=== PATIENT | female | born 1995 | race Caucasian/White ===

== ENCOUNTER 2018-09-04 15:00 | Emergency (ER) | payer MEDICAID, SELFPAY ==
[2018-09-04 15:01] VITALS: BP 154/92; PULSE 110; RESP 16; TEMP 36.8; O2SAT 98; BMI 44.6
--- NOTE | 2018-09-04 15:12 | US_ITS ---
STUDY: ABDOMINAL ULTRASOUND - RIGHT UPPER QUADRANT REASON FOR VISIT: Female, 23 years old. Right upper quadrant pain TECHNIQUE: Ultrasound evaluation of the right upper quadrant was performed with real-time and static joshua-scale imaging. TECHNICAL QUALITY: Adequate. COMPARISON: None. FINDINGS: Liver: The liver measures 19.3 cm. There is increased echogenicity consistent with fatty infiltration. The bile ducts are within normal limits. There is hepatic color flow. The direction of portal flow is hepatopetal. There is no demonstrated mass lesion. Gallbladder: There is a contracted gallbladder. The gallbladder wall measures 4 mm. There is a negative sonographic Phillips's sign. There is no pericholecystic fluid. There are no gallstones. Common Bile Duct (C.B.D.): The common bile duct measures 4 mm. Pancreas: The pancreas is obscured by bowel gas. Right Kidney: Normal size of the right kidney. The right kidney measures 10.9 cm. Normal renal cortex. The right cortex measures 1.2 cm. There is no demonstrated renal mass or cyst. There is no right hydronephrosis. US/Gallbladder IMPRESSION: Hepatomegaly and fibrofatty infiltration of the liver. The patient has eaten. Gallbladder is contracted and there may be artifactually thickened gallbladder wall. Electronically Signed: Avinash Prince, at 16:26 EDT Tel , Service support ,
--- NOTE | 2018-09-04 15:28 | ED.DCSUM_ITS ---
History of Present Illness Chief Complaint: Abd Pain Narrative: Patient presenting for evaluation secondary to abdominal pain. Patient reports that she has had waxing and waning right upper quadrant abdominal pain that radiates somewhat to her epigastrium. This been going on over the course of the last 24 hours and has been associated with some nausea. She denies any vomiting or diarrhea. She denies any urinary signs or symptoms vaginal discharge or bleeding. She is never had any prior similar episodes in the past. Pain is worse with palpation, movement, and eating. Only abdominal surgery history is that of a section. Review of systems otherwise negative. Past Medical History - Allergies and Home Meds Allergies/Adverse Reactions: Allergies erythromycin base [Erythromycin Base] Allergy (Mild, Verified 09/04/18 15:02) Hives Sulfa (Sulfonamide Antibiotics) Allergy (Verified 09/04/18 15:02) Hives Primary Care Physician: Burt De León MD [Primary Care Provider] - Surgical History: - - Smoking Status: Current every day smoker - Family History Maternal Family History: Reports: No pertinent history Paternal Family History: Reports: No pertinent history Review of Systems All systems negative except as indicated General: Denies: Fever Gastrointestinal: Reports: Abdominal pain, Nausea. Denies: Vomiting, Diarrhea, Constipation Physical Exam Vital Signs/Narrative: Vital Signs Temp Pulse Resp BP Pulse Ox 09/04/18 15:01 98.2 F 110 H 16 154/92 H 98 Inital Vital Signs reviewed: Yes General: Well nourished, Well developed, No Acute Distress Head: Normocephalic, Atraumatic Eyes: Perrl, EOMI. Negative for: Pale conjunctiva, Scleral icterus ENT: Moist mucous membranes, No rhinorrhea Neck: Supple, Nontender Cardiovascular: Regular rate, Regular rhythm, No murmurs Respiratory: No distress, CTA bilaterally, Chest nontender Abdomen: Soft, Tender - RUQ, Phillips's sign Extremities: Nontender, No edema Skin: Normal color, No rash Neurological: Alert, Oriented x3, Cranial nerves II-XII grossly intact, Normal Strength, Normal Sensation Psychological: Normal affect, Normal Mood Diagnostic/Tx/Re-eval - Medical Decision Making Patient presenting secondary to right upper quadrant abdominal pain. There was some concern for the possibility of gallbladder disease IV was established work- up was obtained. CBC chemistry lipase and test were obtained which were all found to be unremarkable. Right upper quadrant ultrasound was also found to be unremarkable. Patient was given Toradol, repeat evaluation at 1645 showed the patient have significant improvement of her pain. Potentially at this point the patient is suffering from an episode of biliary colic. She does not have any evidence of inflammation or gallstones. I do not believe that she requires admission or further observation. Patient will be provided with a surgeon with which to follow-up should this become a recurrent issue. She understands signs and symptoms which to return and the patient was discharged. Disposition: Home ED Disposition - Plan for ED Patient: Disposition: Home or Assisted Living Diagnosis: Biliary colic Instructions: ED Abdominal Pain Unkn Cause Referrals: Isidoro Dupont MD [STAFF PHYSICIAN] - As Needed
[2018-09-04] MEDS: Ketorolac 30 MG/ML Syringe 15 MG IV (15:29)
[2018-09-04] MEDS: Ondansetron 4 MG/2 ML Vial IV (15:29)
[2018-09-04 15:34] VITALS: BP 106/79; PULSE 85; RESP 16; O2SAT 98
[2018-09-04 15:47] LABS: Absolute Lymphocyte Count 3.25 X10^3/ul (0.83-4.51); Absolute Neutrophil Count 7.6 X10^3/uL (2.0-7.7); Basophil# 0.01 X10^3/uL; Basophil% 0.1 % (0-1); Eosinophil# 0.36 X10^3/uL; Eosinophils% 3.1 % (0-5); Hematocrit 43.3 % (37-47); Hemoglobin 14.3 g/dl (12.0-15.0); Lymphocyte # 3.25 X10^3/ul (4.0); Lymphocyte % 27.9 % (19-41); Mean Corpuscular Volume 87.8 fL (81-99); Mean Platelet Vol. 8.8 fl (6.2-12.0); Monocyte# 0.43 X10^3/uL; Monocyte% 3.7 % (0-10); Neutrophil # 7.58 X10^3/uL (2.7-7.7); Platelet Count 288 K/mm3 (150-450); RBC Distribution Width CV 12.9 % (11.6-14.6); RBC Distribution Width SD 41.7 fl (35.1-43.9); Red Blood Count 4.93 M/mm3 (4.2-5.4); White Blood Count 11.7 K/mm3 (4.4-11.0)
[2018-09-04 15:48] LABS: POSITIVE COUNT NO; POSITIVE DIFFERENTIAL NO; POSITIVE MORPHOLOGY NO
[2018-09-04 16:06] LABS: ALB/GLOB Ratio 0.9 RATIO (0.9-2.4); AST(SGOT) 11 U/L (15-37); Alanine Aminotransfer ALT/SGPT 23 U/L (13-56); Albumin, Serum 3.4 g/dL (3.2-5.0); Alkaline Phosphatase 61 U/L (45-117); Anion Gap 6 (5-15); BUN 10 mg/dL (7-18); BUN/Creat Ratio 10.9 RATIO (10-20); Calcium,Total 8.8 mg/dL (8.5-10.1); Chloride 108 mmol/L (98-107); Creatinine, Serum 0.92 mg/dL (0.55-1.02); EST Glomerular Filtration Rate 79 mL/min (>60); Est Glom Filt Rate - Afr Amer 96 mL/min (>60); Estimated Creatinine Clearance 84.11 ml/min; Globulin 3.7 g/dL (2.2-4.2); Glucose 101 mg/dL (74-106); Lipase 88 U/L (73-393); Potassium 3.4 mmol/L (3.5-5.1); Protein, Total 7.1 g/dL (6.4-8.2); Sodium Level 141 mmol/L (136-145)
[2018-09-04 16:34] LABS: Internal QC Validated? YES +Cl - CLEAR BKGD; Pregnancy, Serum, hCG Quali. NEGATIVE Negative
[2018-09-04 17:03] VITALS: BP 110/71; PULSE 67; RESP 16; O2SAT 100
== END 2018-09-04 17:05 | disposition home or self-care (01) ==
PROVIDERS: Emergency Provider Emergency Medicine; Family Provider Family Medicine; PCP Family Medicine
DX: K80.50 Calculus of bile duct without cholangitis or cholecystitis without obstruction (principal); Z88.1 Allergy status to other antibiotic agents; Z88.2 Allergy status to sulfonamides; F17.200 Nicotine dependence, unspecified, uncomplicated
CPT/HCPCS: 76705; 80053; 83690; 84703; 85025; 96374; 96375; 99283; J7030; J2405

== ENCOUNTER 2019-09-20 09:52 | Outpatient (RCR) | payer MEDICAID, SELFPAY ==
--- NOTE | 2019-09-20 11:00 | HP.PTEVAL ---
Patient's Visit Information EMMA URIAS is a 24 year old F referred to Physical Therapy by Dr. Burt De León MD with a diagnosis of dizziness. Date of Evaluation: 09/20/19 Physical Therapist: KENDRA Pantoja - Visit Plan Frequency: 1-2x /Week Duration: 4-6 Weeks Plan: 1-2X/ week for 4-6 weeks for VOR X 1 exercises and progression, ambulation with head turns, MSQ activities (see objective) with HEP - Subjective She has been having vertigo spells and they are random... about 1-2X/ week. thinks that it is pretty sure it has to do with her inner ear and the crystals. Sometimes it will last all day. Sometimes it is when she gets out of bed. It feel that she is literally spinning. She reports no LOB. She can be sitting and she will get dizzy and it can last hours. She has not tried anything to stop it... waits it out. She has not hit her head recently. Sometimes she might feel weird driving. She gets really bad SCHROEDER and they last all day long.... IBprof helps a little bit but they are the worst she has had in her life. When she is in the spell screen time will bother her. - Objective -B Hallpike for dizziness/ nastagmus. -horizontal smooth pursuit X 60 seconds for dizziness/nystagmus. -vertical smooth pursuit X 60 seconds for dizziness/nystagmus. +VOR X 1 horizontal.... felt a little spinny after about 45 seconds... when she stopped. +VOR X1 vertical.... felt a little spinny after 60 seconds... when she stopped. VOR X2----Head is moving, eyes focused on moving object ( in opposite direction of the head).... horizontal X 20 seconds.... dizziness. FGA 22. MSQ: 23 (sitting to supine, supine to s/l L, supine to sit, Sitting head to L knee, vetical head pitches, turning 180 degrees to the L - Balance Scores Functional Gait Assessment Score: 22 % Disability: 26.6700 - Goals Goal 1:: I HEP Goal Time Frame: 4-6 Weeks Goal 2:: No dizziness with VOR X 1 horizontal and vertical in standing X 60 seconds Goal Time Frame: 4-6 Weeks Goal 3:: Decrease freq of dizziness to less than 1X each week Goal Time Frame: 4-6 Weeks Goal 4:: Increase MSQ to normal with all activities Goal Time Frame: 4-6 Weeks - Rehabilitation Potential Rehabilitation Potential: Good - Anticipated Interventions Patient/Client Instruction: Educate patient on: Condition, Plan of Care For the Purpose of:: To improve nutrient delivery to tissue, To improve muscle performance and motor function, To improve ability to perform ADL's, To increase tolerance to activity/condition/position, To improve balance Therapeutic Exercise to Include: Strength training, Endurance training, Balance training, Coordination, Gait and locomotor training For the Purpose of:: To improve muscle performance and motor function, To improve ability to perform ADL's, To increase tolerance to activity/condition/position Thank you for the opportunity to evaluate your patient. For Medicare and Medicare HMO plans, please review the plan of care and approve it. It will need to be FAXED BACK to us at [phone] for Medicare purposes. For Medicare only, by signing this I certify the plan of care. Please let me know if there are questions or concerns regarding this plan of care. Physician Signature: Date:
--- NOTE | 2019-12-19 11:36 | HP.PT.NRP ---
EMMA URIAS was seen in my office for initial evaluation on 09/20/19. The following Plan of Care was established for this patient: Initial Frequency: 1-2x /Week Initial Duration: 4-6 Weeks Patient/Client Instruction: Educate patient on: Condition, Plan of Care For the Purpose of:: To improve nutrient delivery to tissue, To improve muscle performance and motor function, To improve ability to perform ADL's, To increase tolerance to activity/condition/position, To improve balance Therapeutic Exercise to Include: Strength training, Endurance training, Balance training, Coordination, Gait and locomotor training For the Purpose of:: To improve muscle performance and motor function, To improve ability to perform ADL's, To increase tolerance to activity/condition/position This patient was last seen in our office 09/20/19. Pertinent comments regarding their Physical therapy will appear below: [facility] PT as pt did not come in for her follow up appointments. At this point I will be discontinuing this patient from physical therapy. I would be happy to see this patient again in the future if found appropriate by the physician. Thank you! Chandrika Chan, MPT
== END 2019-09-20 19:00 | disposition home or self-care (01) ==
LOC: PT 09:52
PROVIDERS: PCP Family Medicine; Visit Provider Family Medicine
DX: R42 Dizziness and giddiness (principal)
CPT/HCPCS: 97161

== ENCOUNTER → 2019-09-24 08:56 | Outpatient (CLI) | payer MEDICAID, SELFPAY | PROVIDERS: PCP Family Medicine; Referring Provider Family Medicine; Visit Provider Family Medicine | DX: R00.2 Palpitations (principal) | CPT/HCPCS: 93225; 93226 ==

== ENCOUNTER 2024-10-01 15:33 | Emergency (ER) | payer MEDICAID, SELFPAY ==
[2024-10-01 15:33] VITALS: BP 134/88; PULSE 91; RESP 18; TEMP 37; O2SAT 98; BMI 44.6
--- NOTE | 2024-10-01 16:11 | EDS_ITS ---
HPI HPI - GI History of Present Illness Chief Complaint: Abd Pain Informant: patient Abdominal Pain/Flank Pain Onset: Today Context: Gradual Onset Timing: Continuous Quality: Aching and Cramping Location: RLQ Worsened by: Nothing Relieved by: Nothing Nausea/Vomiting/Emesis GI Symptom: Positive for Nausea; Negative for Vomiting Diarrhea/Melena/Hematochezia GI Symptom: Negative for Diarrhea, Melena or Hematochezia Associated Symptoms Associated Symptoms: Negative for Dysuria, Frequency or Hematuria LMP: 09/07/2024 Narrative Narrative: Patient presents with right lower quadrant abdominal pain that began today. Patient is a began rather suddenly. Patient states it has been constant all day today. Patient describes it as cramping and aching. Patient states it is mainly over the right lower abdomen. Patient states that she saw her primary care physician for this today and she was referred to the emergency department for possible appendicitis. Patient states nothing makes her pain worse and nothing makes it better. Patient admits to some mild nausea. Patient states her appetite is good. Patient states she is hungry and wants to eat. Patient denies any diarrhea, melena, or hematochezia. Patient states her last menstrual period was 09/07/2024. Patient denies any urinary complaints. [facility] Medical History (Updated 10/01/24 @ 20:[address] Octavio May DO) Hypothyroid Home Medications ?Medication ?Instructions ?Recorded ?Last Taken ?Type albuterol sulfate 90 mcg/actuation 2 puff inhalation Q 4H PRN PRN Sob 12/30/13 06/01/15 18:30 History aerosol inhaler (Ventolin HFA) &/Or Wheezing medroxyprogesterone 150 mg/mL 150 mg IM .[id number] 09/18 05/06 Unknown History intramuscular syringe levothyroxine 112 mcg tablet 112 mcg PO DAILY 10/01/24 Unknown History Allergy/AdvReac Type Severity Reaction Status Date / Time erythromycin base Allergy Mild Hives Verified 10/01/24 15:35 (Erythromycin Base) Sulfa (Sulfonamide Allergy Hives Verified 10/01/24 15:35 Antibiotics) Surgical History (Updated 10/01/24 @ 16:[address] Octavio May DO) Hx of section Hx of right breast biopsy Hx of tonsillectomy Social History (Updated 10/01/24 @ 16:[address] Octavio Schwiger, DO) Smoking Status: Current every day smoker tobacco type: e-cigarettes Electronic Cigarette Use: with nicotine ROS ROS ED Constitutional Constitutional ED: Denies chills or fever(s) Eyes Eyes: Denies blurry vision or change in vision ENT ENT ED: Denies rhinorrhea or sore throat Cardiovascular Cardiovascular: Denies chest pain or palpitations Respiratory/Chest Respiratory/Chest: Denies cough or dyspnea Gastrointestinal Gastrointestinal: Reports abdominal pain and nausea; Denies vomiting Genitourinary Genitourinary ED: Denies dysuria or hematuria Musculoskeletal Musculoskeletal: Denies back pain or neck pain Integumentary Denies abscess or rash Neurologic Neurologic: Denies headache(s) or weakness Allergic/Immunologic Allergic/Immunologic ED: Denies mouth swelling or urticaria EXAM Physical Exam Const Vital Signs: 10/01/24 15:33 10/01/24 17:55 10/01/24 19:00 Temperature 98.6 F Temperature Source Oral Pulse Rate 91 74 74 Respiratory Rate 18 16 16 Blood Pressure 134/88 H 96/65 112/61 Blood Pressure Mean 103 75 78 Pulse Ox 98 98 97 Oxygen Delivery Method Room Air Room Air 10/01/24 20:31 Temperature 97.9 F Temperature Source Pulse Rate 68 Respiratory Rate 16 Blood Pressure 117/67 Blood Pressure Mean 83 Pulse Ox 100 Oxygen Delivery Method Positive well nourished and well developed Constitutional Narrative: BMI is 44.6 General Appearance ED: well developed and NAD HEENT Reports moist mucous membranes Neck supple and no JVD Resp normal respiratory effort and clear to auscultation bilaterally Cardio regular rate and regular rhythm GI non-distended Palpation: soft and tender RLQ; Negative for guarding or rebound tenderness present Neuro CN's II-XII intact bilaterally, moves all extremities and no sensory deficits noted Sensorium / Orientation: alert Motor Exam: strength 5/5 throughout Psych mental status grossly normal MDM MDM MDM Narrative Medical decision making narrative: Differential diagnosis included appendicitis, ureteral calculus, ovarian cyst, ectopic , electrolyte abnormality, urinary tract infection, pyelonephritis, diverticulitis, bowel obstruction, and perforation. CBC will be obtained to assess for leukocytosis and anemia. Comprehensive metabolic profile will be obtained to assess for hepatic function, renal function, and electrolyte abnormality. Serum hCG will be obtained to assess for . Urinalysis will be obtained to assess for urinary tract infection and hematuria. CT scan of the abdomen and pelvis will be obtained to assess for appendicitis, dive rticulitis, bowel obstruction, and perforation. History & Record Review Additional record(s) reviewed:: Prior outpatient record, Prior ED visit and Prior labs Lab Data Attestation: I reviewed the patient's lab results. Lab results narrative: CBC was reviewed. There is a mild leukocytosis of 13.0. The remainder is within normal limits. Comprehensive metabolic profile was reviewed and was within normal limits. Serum hCG was reviewed and was negative. Urinalysis was reviewed. There is no evidence of urinary tract infection or hematuria. Labs: Laboratory Results - last 24 hr 10/01/24 10/01/24 16:12 17:20 WBC 13.0 H RBC 4.50 Hgb 13.4 Hct 39.5 MCV 87.8 MCH 29.8 MCHC 33.9 RDW Std Deviation 40.5 RDW Coeff of Chris 12.8 Plt Count 291 MPV 8.8 Immature Gran % (Auto) 0.300 Neut % (Auto) 66.5 Lymph % (Auto) 27.6 [facility] % (Auto) 3.8 Eos % (Auto) 1.5 Baso % (Auto) 0.3 Absolute Neuts (auto) 8.6 H Absolute Lymphs (auto) 3.60 Nucleated RBC % 0 Sodium 137 Potassium 4.1 Chloride 104 Carbon Dioxide 21.2 Anion Gap 12 BUN 11 Creatinine 0.73 Estim Creat Clear Calc 146.08 Est GFR (MDRD) Non-Af 112 BUN/Creatinine Ratio 14.9 Glucose 75 Calcium 9.2 Total Bilirubin 0.38 AST 23 ALT 15 Alkaline Phosphatase 50 Total Protein 6.8 Albumin 3.8 Globulin 3.0 Albumin/Globulin Ratio 1.3 Serum , Qual NEGATIVE Urine Color Yellow Urine Clarity Clear Urine pH 6.5 Ur Specific [place] 1.010 Urine Protein Negative Urine Glucose (UA) Normal Urine Ketones Negative Urine Occult Blood Negative Urine Nitrite Negative Urine Bilirubin Negative Urine Urobilinogen Normal Ur Leukocyte Esterase Negative Urine RBC 0-5 SEEN Urine WBC 0-5 SEEN Ur Squamous Epith Cells 0-5 SEEN Urine Bacteria 0 SEEN Urine Mucus 0 SEEN Radiography Diagnostic Testing: Clinical Impression(s) from Imaging Studies Abdomen/Pelvis CT 10/01/24 18:35 IMPRESSION: No acute intracranial process. Reading Location: [facility] CT scan of the abdomen and pelvis was obtained. There is no evidence of appendicitis. There is no free air. There is no free fluid. There is no evidence of obstruction or perforation. This was interpreted by the radiologist was also independently reviewed by myself. Treatment and Re-Evaluation :: Patient was given IV fluids, morphine, and Zofran. Patient was feeling better on reevaluation. Patient was advised of her findings. Patient was instructed to follow-up with her primary care physician in 5 to 7 days. Patient and family understood and were agreeable with the plan. All questions were answered. Discharge Plan Triage Chief Complaint: Abd Pain ED Provider: Octavio May Dx/Rx/DC Orders Clinical Impression: Abdominal pain, right lower quadrant, Nicotine vapor product user Instructions: ED Abdominal Pain Unkn Cause Fem Prescriptions: No Action albuterol sulfate [Ventolin HFA] 18 GM HFA aerosol inhaler 2 puff inhalation Q4H PRN PRN (Reason: Sob &/Or Wheezing) Patient Comments: medroxyprogesterone 150 MG/ML syringe 150 mg IM .[id number] levothyroxine 112 mcg tablet 112 mcg PO DAILY Primary Care Provider: Burt De León Referrals: Burt De León MD [Primary Care Provider] - 3-5 Days Print Language: Romansh Disposition Disposition: Home, Self Care Discharge Date/Time: 10/01/24 20:32
[2024-10-01 16:59] LABS: Hematocrit 39.5 % (37-47); Hemoglobin 13.4 g/dL (12.0-15.0); Immature Granulocytes Count 0.040 X10^3/uL (0.0-0.0); Mean Corp Hgb Conc 33.9 g/dL (32-36); Mean Corpuscular Volume 87.8 fL (81-99); Mean Platelet Vol. 8.8 fl (6.2-12.0); NRBC Flagged by Analyzer 0 % (0-5); Platelet Count 291 K/mm3 (150-450); RBC Distribution Width CV 12.8 % (11.6-14.6); RBC Distribution Width SD 40.5 fl (35.1-43.9); Red Blood Count 4.50 M/mm3 (4.2-5.4); White Blood Count 13.0 K/mm3 (4.4-11.0)
[2024-10-01] MEDS: 0.9% Normal Saline (1000mL) 1,000 ML 999 ML IV (17:19)
[2024-10-01 17:41] LABS: Mucous, Urine 0 SEEN /hpf (<or=2+)
[2024-10-01 17:43] LABS: Color, Urine Yellow (Yellow); Glucose, Dipstick Normal (Normal); Ketone-Dipstick Negative (Negative); Leukocyte Esterase-Dipstick Negative /ul (Negative); Nitrite-Dipstick Negative (Negative); Occult Blood-Urine Negative /ul (Negative); Protein-Dipstick Negative (Negative); Specific Gravity, Urine 1.010 (1.002-1.030); Urine Bilirubin Dipstick Negative (Negative)
[2024-10-01 17:52] LABS: AST(SGOT) 23 U/L (<=31); Alanine Aminotransfer ALT/SGPT 15 U/L (<=34); Albumin, Serum 3.8 g/dL (3.5-5.0); Alkaline Phosphatase 50 U/L (35-104); Anion Gap 12 (5-15); BUN 11 mg/dL (4-19); BUN/Creat Ratio 14.9 RATIO (10-20); Calcium,Total 9.2 mg/dL (7.6-11.0); Carbon Dioxide 21.2 mmol/L (21.0-32.0); Chloride 104 mmol/L (98-108); Estimated Creatinine Clearance 146.08 ml/min (50-250); Globulin 3.0 g/dL (2.2-4.2); Glucose 75 mg/dL (70-99); Potassium 4.1 mmol/L (3.3-5.1)
[2024-10-01 17:55] VITALS: BP 96/65; PULSE 74; RESP 16; O2SAT 98
[2024-10-01 18:27] LABS: Internal QC Validated? YES +Cl - CLEAR BKGD; Pregnancy, Serum, hCG Quali. NEGATIVE Negative; Record Kit Lot#, Serum Preg. 962302
--- NOTE | 2024-10-01 18:35 | CT_ITS ---
PROCEDURE: ABDOMEN/PELVIS W IV CONT ONLY 10/01/2024 REASON FOR EXAM: ABDOMINAL PAIN TECHNIQUE: ABDOMEN/PELVIS W IV CONT ONLY Coronal and Sagittal reconstruction series were provided. CONTRAST: 100 mL of Isovue 370 One or more dose reduction techniques were used (e.g., Automated exposure control, adjustment of the mA and/or kV according to patient size, use of iterative reconstruction technique. RADIATION DOSE SUMMARY: DLP: 1358 mGycm COMPARISON: Ultrasound from 09/04/2018 FINDINGS: Limited sections of the lung bases demonstrate no focal pulmonary mass or consolidations. The liver, spleen, pancreas, and both adrenal glands demonstrate no acute findings. The gallbladder is unremarkable. The stomach is unremarkable. The small bowel loops are not dilated. The appendix is normal. No colonic obstruction. There is no free air or significant free fluid. The kidneys are unremarkable. The urinary bladder is partially distended. The pelvic structures are intact. There is no solid pelvic mass. No significant lymphadenopathy. The aorta and IVC demonstrate no acute findings. Visualized osseous structures demonstrate no acute abnormality. CT/Abdomen/Pelvis W IV Cont ONLY IMPRESSION: No acute intracranial process. Reading Location: [id number]
[2024-10-01 19:00] VITALS: BP 112/61; PULSE 74; RESP 16; O2SAT 97
[2024-10-01 19:07] LABS: Red Blood Cells-Urine 0-5 SEEN /hpf (0-5); Squamous Epithelial Cells - UA 0-5 SEEN /hpf (5-10)
[2024-10-01 20:31] VITALS: BP 117/67; PULSE 68; RESP 16; TEMP 36.6; O2SAT 100
--- OUTSIDE RECORDS SUMMARY | 2024-10-01 23:13 | XMS RPT_ITS | CCD ---
Author Organization [facility] Care Team Providers Care Optical Lathe Operator Name Role Phone Burt Eugene MD Primary Care Provider Burt Eugene MD Primary Care Provider Haagen GUEST RELATIONS EXECUTIVE.FELLING BUCKING SUPERVISORMeghann Unavailable Suppan GUEST RELATIONS EXECUTIVE.Jennifer GUZMAN Unavailable [phone] Suppan GUEST RELATIONS EXECUTIVE.Melanie GUZMANline A Unavailable BURT EUGENE Primary Care Unavailable VALORIE, BURT Zee Primary Care Unavailable VALORIE, BURT Zee Primary Care Unavailable BURT EUGENE Attending Unavailable VALORIE, BURT Zee Primary Care Unavailable VALORIE, BURT Zee Referring Unavailable VALORIE, BURT Zee Referring Unavailable VALORIE, BURT Zee Primary Care Unavailable VALORIE, BURT Zee Primary Care Unavailable XIN CUNHA Referring Unavailable VALORIE, BURT Zee Primary Care Unavailable VALORIE, BURT Zee Referring Unavailable VALORIE, BURT Zee Primary Care Unavailable SHERINE GALVIN Attending Unavailable VALORIE, BURT Zee Primary Care Unavailable VALORIE, BURT Zee Primary Care Unavailable BURT EUGENE Attending Unavailable AURORA TRAVIS Attending Unavailable VALORIE, BURT Zee Primary Care Unavailable MARGOTH FOX Referring Unavailable VALORIE, BURT Zee Primary Care Unavailable Valorie Dr. Burt LOERA Primary Care Provider Dr. Octavio May DO Referring Provider [phone] [address]. Octavio May DO Emergency Provider [phone] Allergies Allergy Classification Reported Allergen(s) Allergy Type Date of Onset Reaction(s) Facility Anti-Epileptic Agents (2 sources) lamoTRIgine Drug Allergy 3 [facility] Contrast Media (2 sources) Contrast media Substance Allergy 8 [facility] Work Phone: Macrolides (antibiotic) (2 sources) Erythromycin Drug Allergy 1 [facility] Sulfonamides (antibiotic) (2 sources) Sulfonamides (Antibiotic) Drug Allergy 2 [facility] (20 sources) Contrast media; Translations: [RED DYE] Drug Allergy 8 [facility] Work Phone: (20 sources) Erythromycin; Translations: [ERYTHROMYCIN] Drug Allergy 1 [facility] (20 sources) House dust mite; Translations: [DUST MITES] Allergy to substance 3 Other: See Comments [facility] (20 sources) lamoTRIgine; Translations: [LAMOTRIGINE] Drug Allergy 3 [facility] Work Phone: (20 sources) Seasonal allergy; Translations: [SEASONAL ALLERGIES] Allergy to substance 3 Other: See Comments [facility] (20 sources) Sulfonamides (Antibiotic); Translations: [SULFA (SULFONAMIDE ANTIBIOTICS)] Drug Allergy 2 [facility] (1 source) Sulfonamides (Antibiotic) Allergy to substance 5 [facility] Medications Current Medications Medication Drug Class(es) Dates Sig (Normalized) Sig (Original) Albuterol (1 source) beta2-Adrenergic Agonist Start: 12-30-2013 Albuterol Sulfate (Ventolin Hfa) 18 GM HFA aerosol inhaler Active 2 NMA INHALATION EVERY 4 HOURS NEEDED as needed for Sob &/Or Wheezing December 30, 2013 12:00am amoxicillin 875 mg oral tablet (1 source) Penicillin-class Antibacterial Start: 11-27-2021 End: 12-04-2021 take 1 tablet by mouth twice daily amoxicillin (AMOXIL) 875 mg tablet Take 1 tablet by mouth twice daily for 7 days. 14 tablet 0 11/27/2021 12/04/2021 Active Comment on above: Take 1 tablet by cem twice daily for 7 days. doxycycline monohydrate 100 mg oral tablet (3 sources) Tetracycline-class Drug Start: 03-06-2024 End: 03-16-2024 take 1 tablet by mouth twice daily doxycycline monohydrate 100 mg tablet Indications: Pharyngitis, unspecified etiology , Sinobronchitis Take 1 tablet by mouth two times a day for 10 days. 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 Take on empty stomach. For thyroid. 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 Take on empty stomach. For Thyroid 30 tablet 2 03/28/2023 06/02/2023 Discontinued Comment on above: Take 1 tablet by cem th once daily. Take on empty stomach. For Thyroid Take 1 tablet by cem th once daily. Take on empty stomach. For thyroid. predniSONE 20 mg oral tablet (1 source) Start: 02-28-2024 End: 03-04-2024 take 2 tablets by mouth once daily predniSONE (DELTASONE) 20 mg tablet Indications: Sore throat Take 2 tablets by mouth once daily for 5 days. 10 tablet 02/28/2024 03/04/2024 Active Completed/Discontinued Medications Medication Drug Class(es) Dates Sig (Normalized) Sig (Original) benzonatate 100 mg oral capsule (7 sources) Non-narcotic Antitussive Start: 03-06-20 End: 07-28-19 25 take 1 capsule by mouth three times daily as needed benzonatate (TESSALON PERLE) 100 mg capsule Indications: Pharyngitis, unspecified etiology , Sinobronchitis Take 1 capsule by mouth three times a day as needed. 20 capsule 03/06/2024 07/27/2024 Discontinued cetirizine hydrochloride 10 mg oral tablet (2 sources) Histamine-1 Receptor Antagonist Start: 11-28-19 End: 01-26-20 take 1 tablet by mouth once daily cetirizine (ZYRTEC) 10 mg tablet Take 1 tablet by mouth once daily. 30 tablet 0 11/27/2021 01/25/2022 Discontinued Comment on above: Take 1 tablet by cem th once daily. cyclobenzaprine hydrochloride 10 mg oral tablet (4 sources) Muscle Relaxant Start: 01-26-20 End: 07-23-19 take 1 tablet by mouth three times daily as needed for muscle spasms cyclobenzaprine (FLEXERIL) 10 mg tablet Indications: Costochondritis Take 1 tablet by mouth three times daily as needed for muscle spasm. 30 tablet 01/25/2022 07/22/2022 Discontinued Comment on above: Take 1 tablet by cem th three times daily as needed for muscle spasm. fluticasone propionate 0.05 mg/actuat metered dose nasal spray (2 sources) Corticosteroid Start: 11-28-19 End: 01-26-20 take 2 spray(s) by mouth once daily fluticasone (FLONASE) 50 mcg/actuation nasal spray Use 2 Sprays in each nostril once daily. Rinse mouth after use. 9.9 mL 0 11/27/2021 01/25/2022 Discontinued Comment on above: Use 2 Sprays in each nostril once daily. Rinse mouth after use. ibuprofen 600 mg oral tablet (1 source) Nonsteroidal Anti-inflammatory Drug Start: 06-05-19 16 End: 07-04-19 16 take 1 tablet by mouth every six hours as needed for pain Ibuprofen 600 MG tablet Discontinued 600 mg PO EVERY 6 HOURS NEEDED as needed for Pain 60 1 June 05, 2015 10:04am July 04, 2015 2:54pm lidocaine hydrochloride 20 mg/ml mucous membrane topical solution (8 sources) Antiarrhythmic, Amide Local Anesthetic Start: 02-28-20 End: 07-28-19 LIDOCAINE VISCOUS 2 % solution Indications: Sore throat Take 5-10 mL by mouth four times a day as needed. 100 mL 2 02/28/2024 07/27/2024 Discontinued meclizine hydrochloride 25 mg oral tablet (6 sources) Antiemetic Start: 09-12-19 End: 03-25-19 take 1 tablet by mouth every eight hours as needed for dizziness and dizziness meclizine (ANTIVERT) 25 mg tab Indications: Dizziness Take 1 tablet by mouth three times daily as needed (dizziness). 30 tablet 09/12/2019 03/25/2023 Discontinued Comment on above: Take 1 tablet by cem th three times daily as needed (dizziness). 1 ml medroxyPROGESTERone acetate 150 mg/ml prefilled syringe (6 sources) Progestin Start: 01-07-20 End: 01-26-20 medroxyPROGESTERone (DEPO-PROVERA) 150 mg/mL Indications: Encounter for surveillance of other contraceptive Inject 1 mL intramuscularly every 12 weeks. 1 mL 4 01/06/2021 01/25/2022 Discontinued Start: 01-06-2021 End: 12-08-2021 medroxyPROGESTERone 150 mg i njection (DEPO-PROVERA) Start: 09-30-2015 inject 150 mg by int ramuscular injection every three months Medroxyprogesterone 150 MG/ML syringe Active 150 mg IM .[id number] September 30, 2015 12:00am Comment on above: Inject 1 mL intramus cularly every 12 weeks. meloxicam 15 mg oral tablet (3 sources) Nonsteroidal Anti-inflammatory Drug Start: 01-26-20 End: 02-05-20 take 1 tablet by mouth once daily at mealtime meloxicam (MOBIC) 15 mg tablet Indications: Costochondritis Take 1 tablet by mouth once daily for 10 days. Take with food. 10 tablet 01/25/2022 02/04/2022 Comment on above: Take 1 tablet by cem th once daily for 10 days. Take with food. nystatin 100 unt/mg topical powder (6 sources) Polyene Antifungal Start: 01-07-20 End: 07-23-19 23 nystatin (NYSTOP) powder Indications: Intertrigo Apply 1 application to affected area four times daily. 60 g 3 01/06/2021 07/22/2022 Discontinued Comment on above: Apply 1 application to affected area four times daily. vit/iron fum/folic ac ( 1 + 1 ORAL) (16 sources) End: 07-28-19 vit/iron fum/folic ac ( 1 + 1 ORAL) Take by mouth. 07/27/2024 Discontinued vit/iro n fum/folic ac ( 1 + 1 ORAL) Take by mouth. Active vit/iro n fum/folic ac ( 1 + 1 ORAL) Take by mouth. 0 Active Problems Active Problems Problem Classification Problem Date Documented Da te Episodic/Chronic Abdominal pain (1 source) Right lower quadrant pain; Translations: [Right lower quadrant pain] 10-01-2024 Episodic Asthma (20 sources) Asthma; Translations: [Unspecified asthma, uncomplicated] Onset: 07-03-2012 07-03-2012 Chronic Biliary tract disease (1 source) Biliary colic; Translations: [Calculus of bile duct without cholangitis or cholecystitis without obstruction] 09-05-2018 Episodic Chronic ulcer of skin (1 source) Disorder of abdominal wall; Translations: [Non-pressure chronic ulcer of skin of other sites with unspecified severity] 10-24-2015 Chronic Comment on above: nonhealing abdominal wall ulcer Complications of surgical procedures or medical care (3 sources) Non-healing surgical wound; Translations: [Other complications of procedures, not elsewhere classified, initial encounter] 07-30-2015 Episodic Comment on above: history of dehiscence infection Contraceptive and procreative management (3 sources) Patient encounter status; Translations: [Encounter for surveillance of injectable contraceptive] Episodic Diseases of white blood cells (3 sources) Leukocytosis; Translations: [Elevated white blood cell count, unspecified] Onset: 03-09-2024 03-07-2024 Chronic Immunizations and screening for infectious disease (1 source) Encounter for screening for human papillomavirus (HPV); Translations: [Encounter for screening for human papillomavirus (HPV)] Onset: 07-27-2024 Episodic Other bone disease and musculoskeletal deformities (1 source) Costal chondritis; Translations: [Chondrocostal junction syndrome [Tietze]] Episodic Other lower respiratory disease (2 sources) Rib pain; Translations: [Pleurodynia] Episodic Other lower respiratory disease (1 source) Cough; Translations: [Acute cough] 02-26-2024 Episodic Other nutritional; endocrine; and metabolic disorders (20 sources) Severe obesity; Translations: [Morbid (severe) obesity due to excess calories] Onset: 10-21-2014 Chronic Other screening for suspected conditions (not mental disorders or infectious disease) (20 sources) Cancer cervix screening status; Translations: [Encounter for screening for malignant neoplasm of cervix] Onset: 05-01-2012 Resolved: 09-05-2012 07-26-2023 Episodic Other upper respiratory infections (2 sources) Chronic sinusitis; Translations: [Chronic sinusitis, unspecified] Onset: 03-06-2024 03-06-2024 Chronic Otitis media and related conditions (1 source) Acute non-suppurative otitis media - serous; Translations: [Acute serous otitis media, bilateral] Episodic Residual codes; unclassified (2 sources) Pain; Translations: [Pain, unspecified] 03-27-2024 Episodic Residual codes; unclassified (1 source) Nicotine-filled electronic cigarette user; Translations: [Tobacco use] 10-01-2024 Episodic Substance-related disorders (1 source) Smoker; Translations: [Nicotine dependence, unspecified, uncomplicated] 10-24-2015 Chronic Comment on above: F17.200 Thyroid disorders (7 sources) 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; Translations: [Other specified hypothyroidism] Onset: 11-12-2023 06-02-2023 Chronic Past or Other Problems Problem Classification Problem Date Documented Da te Episodic/Chronic Anxiety disorders (20 sources) Anxiety disorder; Translations: [Anxiety disorder, unspecified] Onset: 02-09-2012 Resolved: 08-19-2023 02-09-2012 Chronic Cancer of cervix (17 sources) Atypical squamous cells of undetermined significance on cervical Papanicolaou smear; Translations: [Atypical squamous cells of undetermined significance on cytologic smear of cervix (ASC-US)] Onset: 08-10-2023 08-10-2023 Episodic Cardiac dysrhythmias (18 sources) Palpitations; Translations: [Palpitations] Onset: 02-19-2011 Resolved: 10-21-2014 10-21-2014 Episodic Chronic obstructive pulmonary disease and bronchiectasis (1 source) Bronchitis, not specified as acute or chronic; Translations: [Sinobronchitis] Onset: 03-06-2024 Episodic Menstrual disorders (20 sources) Secondary amenorrhea; Translations: [Secondary amenorrhea] Onset: 02-19-2011 Resolved: 09-05-2012 Chronic Mood disorders (20 sources) Bipolar disorder; Translations: [Bipolar disorder, unspecified] Onset: 02-19-2011 Resolved: 08-19-2023 03-16-2021 Chronic Other complications of (18 sources) Maternal tobacco use in ; Translations: [Smoking (tobacco) complicating , unspecified trimester] Onset: 10-21-2014 Resolved: 06-25-2015 06-25-2015 Episodic Other complications of (18 sources) Rubella non-immune; Translations: [Supervision of other high risk pregnancies, unspecified trimester] Onset: 10-22-2014 Resolved: 06-25-2015 06-25-2015 Episodic Other complications of (20 sources) High risk ; Translations: [Supervision of high risk , unspecified, first trimester] Onset: 11-20-2014 Resolved: 06-25-2015 04-10-2015 Episodic Other lower respiratory disease (18 sources) Dyspnea; Translations: [Shortness of breath] Onset: 10-25-2012 Resolved: 10-21-2014 10-21-2014 Episodic Other nutritional; endocrine; and metabolic disorders (18 sources) Overweight; Translations: [Overweight] Onset: 02-19-2011 Resolved: 10-21-2014 10-21-2014 Episodic Other and delivery including normal (18 sources) Normal ; Translations: [Encounter for supervision of normal first , first trimester] Onset: 10-21-2014 Resolved: 11-20-2014 11-20-2014 Episodic Other upper respiratory infections (4 sources) Acute upper respiratory infection; Translations: [Acute upper respiratory infection, unspecified] Onset: 03-06-2024 02-26-2024 Episodic Residual codes; unclassified (20 sources) Abnormal cytology findings; Translations: [ASCUS with positive high risk HPV] Onset: 10-21-2014 03-16-2021 Episodic Residual codes; unclassified (14 sources) History of clinical finding in subject; Translations: [Personal history of other specified conditions] Onset: 10-21-2014 03-16-2021 Episodic Residual codes; unclassified (18 sources) Family history of [place] disease; Translations: [Family history of other endocrine, nutritional and metabolic diseases] Onset: 02-19-2011 Resolved: 10-21-2014 10-21-2014 Episodic Residual codes; unclassified (12 sources) Personal history of other specified conditions; Translations: [Personal history of other specified diseases] Onset: 10-21-2014 03-16-2021 Episodic Residual codes; unclassified (1 source) Pain, unspecified; Translations: [Pain] Onset: 03-27-2024 Episodic Screening and history of mental health and substance abuse codes (15 sources) History of mood disorder; Translations: [Personal history of other mental and behavioral disorders] Onset: 08-19-2023 08-19-2023 Episodic Syncope (18 sources) Syncope; Translations: [Syncope and collapse] Onset: 02-19-2011 Resolved: 10-21-2014 10-21-2014 Episodic Results Test Name Value Interpretation Reference Range Facility Absolute lymphocyte countOrd ered By: Octavio May on 10-01-2024 Lymphocytes Auto (Unsp spec) [#/Vol] 3.60 10*3/uL 0.83-4.51 [facility] Absolute neutrophil countOrd ered By: Octavio May on 10-01-2024 Neutrophils (Bld) [#/Vol] 8.6 10*3/uL High 2.0-7.7 [facility] Anion gap in Serum or Plasma Ordered By: Octavio May on 10-01-2024 Anion gap [Moles/Vol] 12 mmol/L 5-15 [facility] Automated lymphocyte count a s percentage of total leukocytesOrdered By: Octavio May on 10-01-2024 Lymphocytes/100 WBC Auto (Unsp spec) 27.6 % 19-41 [facility] BUN/creatinine ratioOrdered By: Octavio May on 10-01-2024 Urea nitrogen/Creatinine [Mass ratio] 14.9 mg/mg 10-20 [facility] Basophil percentageOrdered B y: Octavio May on 10-01-2024 Basophils/100 WBC (Bld) 0.3 % 0-1 [facility] Bilirubin Test strip Ql (U)O rdered By: Octavio May on 10-01-2024 Bilirubin Ql (U) Negative Negative [facility] Bilirubin, totalOrdered By: Octavio May on 10-01-2024 Bilirubin [Mass/Vol] 0.38 mg/dL 0.00-1.[address] [facility] Carbon dioxide, total [Moles /volume] in Central venous bloodOrdered By: Octavio May on 10-01-2024 CO2 [Moles/Vol] 21.2 mmol/L 21.0-32.0 [facility] Chloride assayOrdered By: Christopher May on 10-01-2024 Chloride [Moles/Vol] 104 mmol/L 98-[address] [facility] Eosinophil percentageOrdered By: Octavio May on 10-01-2024 Eosinophils/100 WBC (Bld) 1.5 % 0-5 [facility] Erythrocyte distribution wid th ratioOrdered By: Octavio May on 10-01-2024 Erythrocyte distribution width (RBC) [Ratio] 12.8 % 11.6-14.6 [facility] Erythrocyte distribution wid th standard deviationOrdered By: Octavio May on 10-01-2024 Erythrocyte distribution width (RBC) [Ratio] 40.5 fl 35.1-43.9 [facility] Glomerular filtration rate ( GFR) estimation/1.73 sq m using serum, plasma, or whole bOrdered By: Octavio May on 10-01-2024 GFR/1.73 sq M.predicted among non-blacks MDRD (S/P/Bld) [Vol rate/Area] 112 mL/min/{1.73_m2} >60 [facility] Comment on above: mL/min/1.73m2 CKD-EP I Creatinine Equation (2020) Hematocrit Auto (Bld) [Volum e fraction]Ordered By: Octavio May on 10-01-2024 Hematocrit (Bld) [Volume fraction] 39.5 % 37-47 [facility] Hemoglobin measurementOrdere d By: Octavio May on 10-01-2024 Hemoglobin (Bld) [Mass/Vol] 13.4 g/dL 12.0-15.0 [facility] Immature granulocytes/100 WB C Auto (Bld)Ordered By: Octavio May on 10-01-2024 Immature granulocytes/100 WBC (Bld) 0.300 % 0.0-0.9 [facility] Comment on above: IG% - Immature Granu locytes (promyelocytes, myelocytes and metamyelocytes) > 1% indicates that a LEFT SHIFT is Present. Ketones Test strip Ql (U)Ord ered By: Octavio May on 10-01-2024 Ketones Ql (U) Negative Negative [facility] Laboratory - Chemistry and C hemistry - challengeOrdered By: Octavio May on 10-01-2024 AST [Catalytic activity/Vol] 23 U/L <32 [facility] Comment on above: Hemolysis present, R esults could be affected. MCV (mean corpuscular volume ) determinationOrdered By: Octavio May on 10-01-2024 MCV (RBC) [Entitic vol] 87.8 fL 81-99 [facility] Mean corpuscular hemoglobin (MCH) determinationOrdered By: Octavio May on 10-01-2024 MCH (RBC) [Entitic mass] 29.8 pg 27.0-32.0 [facility] Mean corpuscular hemoglobin concentration (MCHC) determinationOrdered By: Octavio May on 10-01-2024 MCHC (RBC) [Mass/Vol] 33.9 g/dL 32-36 [facility] Mean platelet volume determi nationOrdered By: Octavio May on 10-01-2024 Platelet mean volume (Bld) [Entitic vol] 8.8 fL 6.2-12.0 [facility] Microscopic analysis of urin e for red blood cells (RBC)Ordered By: Octavio May on 10-01-2024 Microscopic analysis of urine for red blood cells (RBC) 0-5 SEEN /hpf 0-5 [facility] Monocyte percentageOrdered B y: Octavio May on 10-01-2024 Monocytes/100 WBC (Bld) 3.8 % 0-10 [facility] Mucus LM Ql (Urine sed)Order ed By: Octavio May on 10-01-2024 Mucus Ql (Urine sed) 0 SEEN /hpf [facility] Neutrophil percentageOrdered By: Octavio May on 10-01-2024 Neutrophils/100 WBC (Bld) 66.5 % 47-70 [facility] Nitrite Test strip Ql (U)Ord ered By: Octavio May on 10-01-2024 Nitrite Ql (U) Negative Negative [facility] Nucleated red blood cell per centageOrdered By: Octavio May on 10-01-2024 Nucleated RBC/100 WBC (Bld) [Ratio] 0 % 0-5 [facility] Platelet countOrdered By: Christopher May on 10-01-2024 Platelets (Bld) [#/Vol] 291 10*3/uL 150-450 [facility] Potassium measurement (mass/ volume)Ordered By: Octavio May on 10-01-2024 Potassium (Unsp spec) [Mass/Vol] 4.1 mmol/L 3.3-5.1 [facility] Comment on above: Hemolysis present, R esults could be affected. Protein Test strip Ql (U)Ord ered By: Octavio May on 10-01-2024 Protein Ql (U) Negative Negative [facility] RBC Auto (Bld) [#/Vol]Ordere d By: Octavio May on 10-01-2024 RBC (Bld) [#/Vol] 4.50 10*6/uL 4.2-5.[address] [facility] Serum beta-hCG test, qualita tiveOrdered By: Octavio May on 10-01-2024 Beta HCG ( test) Ql Negative [facility] Serum creatinine measurement (mass/volume)Ordered By: Octavio May on 10-01-2024 Creatinine [Mass/Vol] 0.73 mg/dL 0.70-1.20 [facility] Serum globulin measurementOr dered By: Octavio May on 10-01-2024 Globulin (S) [Mass/Vol] 3.0 g/dL 2.2-4.2 [facility] Serum glucose measurement (m ass/volume)Ordered By: Octavio May on 10-01-2024 Glucose [Mass/Vol] 75 mg/dL 70-99 [facility] Serum or plasma alanine steen otransferase (ALT) measurementOrdered By: Octavio May on 10-01-2024 ALT [Catalytic activity/Vol] 15 U/L <35 [facility] Serum or plasma albumin haile urement (mass/volume)Ordered By: Octavio May on 10-01-2024 Albumin [Mass/Vol] 3.8 g/dL 3.5-5.0 [facility] Serum or plasma albumin/glob ulin mass ratioOrdered By: Octavio May on 10-01-2024 Albumin/Globulin [Mass ratio] 1.3 {ratio} 0.9-2.4 [facility] Serum or plasma alkaline mari sphatase measurementOrdered By: Octavio May on 10-01-2024 ALP [Catalytic activity/Vol] 50 U/L 35-104 [facility] Serum or plasma calcium haile urement (mass/volume)Ordered By: Octavio May on 10-01-2024 Calcium [Mass/Vol] 9.2 mg/dL 7.6-11.0 [facility] Serum or plasma urea nitroge n measurement (mass/volume)Ordered By: Octavio May on 10-01-2024 Urea nitrogen [Mass/Vol] 11 mg/dL 4-19 [facility] Sodium levelOrdered By: Octavio May on 10-01-2024 Sodium [Moles/Vol] 137 mmol/L 133-145 [facility] Squamous epithelial cells de tection in urine sediment by light microscopyOrdered By: Octavio May on 10-01-2024 Epithelial cells.squamous LM Ql (Urine sed) 0-5 SEEN /hpf 5-10 [facility] Total proteinOrdered By: Queta May on 10-01-2024 Protein [Mass/Vol] 6.8 g/dL 5.9-8.4 [facility] Urine clarityOrdered By: Queta May on 10-01-2024 Clarity (U) Clear Clear [facility] Urine color determinationOrd ered By: Octavio May on 10-01-2024 Color (U) Yellow Yellow [facility] Urine glucose detectionOrder ed By: Octavio May on 10-01-2024 Glucose Ql (U) Normal mg/dl Normal [facility] Urine leukocyte esterase det ection by dipstickOrdered By: Octavio May on 10-01-2024 Leukocyte esterase Test strip Ql (U) Negative Negative [facility] Urine pHOrdered By: Octavio joshi on 10-01-2024 pH (U) 6.5 [pH] 5.0 - 8.0 [facility] Urine sediment bacteria coun t by microscopy (number/high power field)Ordered By: Octavio May on 10-01-2024 Bacteria LM.HPF (Urine sed) [#/Area] 0 /[HPF] None Seen [facility] Urine specific gravity measu rementOrdered By: Octavio May on 10-01-2024 Specific gravity (U) [Rel density] 1.010 1.002-1.030 [facility] Urine urobilinogen measureme ntOrdered By: Octavio May on 10-01-2024 Urobilinogen Ql (U) Normal mg/dl Normal [facility] White blood cell (WBC) count Ordered By: Octavio Calledenis on 10-01-2024 WBC (Bld) [#/Vol] 13.0 10*3/uL High 4.4-11.[address] [facility] White blood cell countOrdere d By: Octavio May on 10-01-2024 White blood cell count 0-5 SEEN /hpf 0-5 [facility] CNPNon 08-14-2024 CNPRosana Telephone (OBGYWM) GUNJAN THAO ([id number]) 1995 F Date Time Provider Department 08/14/24 SHERINE GALVIN During your visit today, we recorded the following information about you: Estefani Medina RN 08/14/2024 9:08 AM Signed Sherine Galvin APRN.MEGAN Simeon [facility] Ob-Metal Burnisher Pool Please notify Gunjan Thao - Pap ASCUS, HRHPV positive. Needs colposcopy with SW. Colposcopy ordered and placed on problem list. Sherine Galvin APRN.Estefani Rausch RN 08/14/2024 9:08 AM Signed Left message to call office. LAVELL Santos Lindsey, RN 08/14/2024 1:42 PM Signed Patient notified of results, verbalizes understanding of instructions. Colposcopy appointment scheduled. Estefani Medina RN Allergies As of Date: 08/14/2024 Noted Allergy Reaction LAMOTRIGINE 05/01/2012 4 - Hives DUST MITES 12/06/2012 14 - Other: See Comments Comments: Skin test positive in office ERYTHROMYCIN 02/19/2011 4 - Hives RED DYE 04/04/2007 4 - Hives SEASONAL ALLERGIES 12/06/2012 14 - Other: See Comments Comments: Tested positive for COCKROACH in office SULFA (SULFONAMIDE ANTIBIOTICS) 03/02/2012 2 - Rash Date Reviewed: 07/27/2024 Reviewed by: Sherine Galvin APRN.FELLING BUCKING SUPERVISOR - Fully Assessed Reason for Visit: Abnormal Pap [273] Cmt: Prescriptions as of 08/14/2024 - levothyroxine (LEVOXYL) 112 mcg tablet Take 1 tablet by mouth once daily. Take on empty stomach. For thyroid. Problem List As Of Date 08/14/2024 Noted Resolved Bipolar disorder (HCC) [F31.9] 02/19/2011 08/19/2023 Depression [F32.A] 02/19/2011 08/19/2023 Overweight(278.02) [E66.3] 02/19/2011 10/21/2014 Syncope [R55] 02/19/2011 10/21/2014 Palpitations [R00.2] 02/19/2011 10/21/2014 Amenorrhea [N91.2] 02/19/2011 09/05/2012 Family history of Springdale's disease [Z83.49] 02/19/2011 10/21/2014 Anxiety disorder [F41.9] 02/09/2012 08/19/2023 Abnormal ultrasound of breast [R92.8] 05/01/2012 09/05/2012 Asthma [J45.909] 07/03/2012 Shortness of breath [R06.02] 10/25/2012 10/21/2014 Tobacco use in [O99.330] 10/21/2014 06/25/2015 Class 3 severe obesity with serious comorbidity* 5 Encounter for supervision of normal first pregn*10/21/2014 11/20/2014 ASCUS with positive high risk HPV [VAA7779] 10/21/2014 History of seizure [Z87.898] 10/21/2014 Rubella non-immune status, antepartum [O09.899,*10/22/2014 06/25/2015 Supervision of high risk in first tri*11/20/2014 04/10/2015 Supervision of high risk in third tri*03/27/2015 06/25/2015 ASCUS with positive high risk HPV cervical [R87*08/10/2023 History of mood disorder [Z86.59] 08/19/2023 Encounter Status:Closed by ESTEFANI MEDINA on 08/14/24 [facility] CNOVon 07-27-2024 CNOV Office Visit (OBGYWM ) GUNJAN THAO ([id number]) 1995 F Date Time Provider Department 07/27/24 11:00 AM SHERINE GALVIN During your visit today, we recorded the following information about you: Blood pressure Weight Height Last Period 110/77 119.3 kg 1.585 m 07/10/24 Sherine Galvin APRN.FELLING BUCKING SUPERVISOR 07/27/2024 1:02 PM Signed Hotel Superintendent offered: Patient declines. Gunjan is a 29 year old who presents for an annual gynecologic exam without complaints. Menses: Menses every 28-30 days lasting 5-6 days. Period symptoms: Cramps; Mood change Contraception: none - happy if occurs. Previous was a surprise. HPV vaccine: Yes Last Pap: 07/26/2023 ASCUS HPV: HRHPV pos [place] 08/2023 benign History of abnormal pap: Yes 2015 ASCUS, HRHPV positive, 2016 ASCUS, HPV negative Last mammogram: 2012 abnormal, fibrocystic Sexually active: Yes Time with current partner: 10 years Pain with intercourse: No Postcoital bleeding: No Documentation from previous visit of 07/26/2023 was copied and pasted, documentation has been reviewed and edited as necessary for today's visit. OB History Gravida2 Para1 Term1 Preterm0 AB1 Living1 SAB1 IAB0 Ectopic0 Multiple0 Live Births1 Metal Burnisher History LMP: 07/10/2024 (Exact Date), Having periods Age at Menarche: 8 Age at First : Age at Menopause: Metal Burnisher History Comments: Sexual Activity: Yes; Male Contraception: Not used Menstrual Tracking History Flowsheet Row Office Visit from 07/27/2024 in OB/Gynecology Period Cycle (Days) 28 Period Duration (Days) 5 Menstrual Flow Moderate PAST MEDICAL HISTORY Diagnosis Date Abnormal Pap smear of cervix 08/15/2014 ASCUS Abnormal ultrasound of breast 05/01/2012 Amenorrhea 02/19/2011 Anxiety disorder 02/09/2012 Asthma ([facility]) 07/03/2012 Bipolar disorder ([facility]) 02/19/2011 Breast disorder fibrocystic breasts Depression 02/19/2011 Family history of Springdale's disease 02/19/2011 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 PAST SURGICAL HISTORY OF tongue clip PAST SURGICAL HISTORY OF age 16 yr right breast biopsy- benign TONSILLECTOMY AND ADENOIDECTOMY FAMILY HISTORY Problem Relation Age of Onset Heart Mother other (pancreatitis) Father Hypothyroidism Brother Hypertension Brother Heart Maternal Grandmother Cancer Maternal Grandmother lung cancer Heart Maternal Grandfather Sleep Apnea Diabetes Paternal Grandmother No Known Problems Daughter SOCIAL HISTORY Social History Tobacco Use Smoking status: Former Current packs/day: 0.50 Types: Cigarettes Smokeless tobacco: Never Tobacco comments: Patient vapes nicotine no longer smoking cigarettes Vaping Use Vaping status: current everyday user Substances: Nicotine Substance Use Topics Alcohol use: No Drug use: No REVIEW OF SYSTEMS Abdomen: No abdominal pain, nausea, vomiting, diarrhea, or constipation. No bloating, early satiety, indigestion, or increased flatulence. Bladder: No dysuria, gross hematuria, urinary frequency, urinary urgency, or incontinence. Breast: No breast lumps, nipple d/c, overlying skin changes, redness or skin retraction. Allergies and current medication updated:Yes SENSITIVE EXAM: The sensitive examination was discussed with the Patient or Patient's Authorized Agricultural Service Worker. As applicable, any other physician, advance practice provider, medical student, or other health professional student that will be observing or involved in the sensitive examination for educational or training purposes was discussed with the Patient or Authorized Agricultural Service Worker. The Patient or Authorized Agricultural Service Worker has agreed to proceed with the sensitive examination. (Sensitive examination includes inspection and/or palpation of the breasts, pelvis, prostate and anorectal regions). EXAM: BP 110/77 Ht 5' 2.402 (1.59m) Wt 263 lb (119.3kg) LMP 07/10/2024 BMI 47.49 kg/(m2). GENERAL: pleasant, female in no apparent distress HEENT: Normocephalic, atraumatic, mucus membranes moist, and no lesions NECK: Supple, full range of motion, no adenopathy, and thyroid normal DERMATOLOGY: Normal, without lesions, non-icteric, and non-hirsute BREAST: soft, non-tender, symmetric, no dominant mass, normal nipple-areolar complex, no lymphadenopathy, and no nipple discharge CHEST: Normal inspiratory effort ABDOMEN: soft, non-tender, and no masses PELVIC: external genitalia normal, normal Bartholin's glands, urethra, [place]chard's glands, no vulvar lesions, no cervical lesions, good vaginal support, phy (more content not included)... Normal [facility] HIGH RISK HUMAN PAPILLOMA FABIENNE (HPV), PCR FOR DETECTION AND GENOTYPINGon 07-27-2024 HPV 16 Ag Ql (Unsp spec) Not detected Normal Not detec verito [facility] Comment on above: Order Comment: Speci men Type: FLUID SPECIMENOrdering Facility: [facility] Address: [address] [place] [address] Performed By: #### H PVHRT ####[facility] LABIA [id number] [place] [address] [place] HPV 18 Ag Ql (Unsp spec) Not detected Normal Not detec [facility] Comment on above: Order Comment: Speci men Type: FLUID SPECIMENOrdering Facility: [facility] Address: [address] [place] [address] Performed By: #### H PVHRT ####[facility] LABIA [id number] [place] [address] [place] HPV 31+33+35+39+45+51+52+56+ 58+59+66+68 DNA BEVERLEY+probe Ql (Cvx) Detected Abnormal Not detected [facility] Comment on above: Order Comment: Speci men Type: FLUID SPECIMENOrdering Facility: [facility] Address: [address] [place] [address] Result Comment: High Risk HPV Other Type includes HPV types 31, 33, 35, 39, 45, 51, 52, 56, 58, 59, 66 and 68. Performed By: #### H PVHRT ####[facility] LABCLIA [id number] [address] PAP TESTon 07-27-2024 ADEQUACY Normal [facility] Comment on above: Order Comment: Speci men Type: FLUID SPECIMENOrdering Facility: [facility] Address: [address] [place] [address] Result Comment: Sati sfactory for interpretation. Transformation zone present Performed By: #### L [id number] ####[facility] [id number] [address] LABCLIA [id number] [address] [place] CASE REPORT Normal [facility] Comment on above: Order Comment: Speci men Type: FLUID SPECIMENOrdering Facility: [facility] Address: [address] [place] [address] Result Comment: Gyne cologic Cytology Report Case: [id number] Authorizing Provider: Sherine Galvin APRN.FELLING BUCKING SUPERVISOR Collected: 07/27/2024 12:09 PM Ordering Location: OB/Gynecology Received: 07/27/2024 04:35 PM First Screen: Gmitro, Veto, CT, ASCP Pathologist: Asad Ivory MD Specimen: Pap Test, ThinPrep, Cervix Performed By: #### L [id number] ####[facility] [id number] [address] LABCLIA [id number] [address] OF [place] CLINICAL HISTORY, CYTOLOGY, WASH HOUSE SUPERVISOR Positive Normal [facility] Comment on above: Order Comment: Speci men Type: FLUID SPECIMENOrdering Facility: [facility] Address: [address] [place] [address] Performed By: #### L [id number] ####[facility]ORYCLIA [id number] [place] [address] [facility] LABCLIA [id number] [address] [place] [address] [place] FINAL PERFORMING LAB Normal [facility] Comment on above: Order Comment: Speci men Type: FLUID SPECIMENOrdering Facility: [facility] Address: [address] [place] [address] Result Comment: Tech nical component, manager desktop screening performed at: [facility], [address] [place] [address] CLIA: [id number] Diagnostic interpretation performed at: [facility], [address] [place] [address] CLIA# [id number] Fire Management Technician: Mikey Osorio MD Performed By: #### L [id number] ####[facility] LABORATORYCLIA [id number] [place] [id number] [facility] LABCLIA [id number] [place] [id number] [place] INTERPRETATION, CYTOLOGY, WASH HOUSE SUPERVISOR Abnormal [facility] Comment on above: Order Comment: Speci men Type: FLUID SPECIMENOrdering Facility: [facility] Address: [address] [place] [address] Result Comment: Atyp ical squamous cells of undetermined significance (ASC-US). at 1455 EDT Performed By: #### L [id number] ####[facility]ORATORYCLIA [id number] [place] [id number] [facility] LABCLIA [id number] [address] [place] [address] [place] LMP 07/10/2024 Normal [facility] Comment on above: Order Comment: Speci men Type: FLUID SPECIMENOrdering Facility: [facility] Address: [address] [place] [address] Performed By: #### L [id number] ####[facility]ORYCLIA [id number] [address] LABCLIA [id number] [address] [place] [address] [place] PAP DISCLAIMER COMMENT The Pap Smear is a screening test for cervical cancer. False negative results occur with all screening tests, emphasizing the need for rescreening at recommended intervals, and clinical correlation. Normal [facility] Comment on above: Order Comment: Speci men Type: FLUID SPECIMENOrdering Facility: [facility] Address: [address] [place] [address] Performed By: #### L [id number] ####[facility]ORYCL[facility] [id number] [address] LABCLIA [id number] [place] [id number] [place] PAP GENERAL CATEGORIZATION Epithelial Cell Abnormality Normal [facility] Comment on above: Order Comment: Speci men Type: FLUID SPECIMENOrdering Facility: [facility] Address: [address] [place] [address] Performed By: #### L [id number] ####[facility]ORYCL[facility] [id number] [address] LABCLIA [id number] [address] [place] [address] [place] PAP SOLAR INSTALLATION TECHNICIAN COMMENT This specimen has been analyzed by the ThinPrep Imaging System, an automated imaging and review system, which assists the laboratory in evaluating cells on ThinPrep Pap tests. Following automated imaging, selected villanueva from every slide are reviewed by a manager desktop. Normal [facility] Comment on above: Order Comment: Speci men Type: FLUID SPECIMENOrdering Facility: [facility] Address: [address] [place] [address] Performed By: #### L [id number] ####[facility]ORATORYCLIA [id number] [place] [address] [place] [facility] LABCLIA [id number] [place] [address] [place] CBC W Auto Differential pane l (Bld)on 04-23-2024 Basophils (Bld) [#/Vol] 0.03 10*3/uL Normal <0.11 [facility] Comment on above: Order Comment: Speci men Type: BLOOD SPECIMENOrdering Facility: [facility] Address: [address] [place] [address] Performed By: #### 5 7021-8 ####[facility] LABCLIA [id number] [place] [address] [place] Basophils/100 WBC (Bld) 0.3 % Normal [facility] Comment on above: Order Comment: Speci men Type: BLOOD SPECIMENOrdering Facility: [facility] Address: [address] [place] [address] Performed By: #### 5 7021-8 ####[facility] LABCLIA [id number] [place] [address] [place] Differential cell count method Nom (Bld) Auto Normal [facility] Comment on above: Order Comment: Speci men Type: BLOOD SPECIMENOrdering Facility: [facility] Address: [address] [place] [address] Performed By: #### 5 7021-8 ####[facility] LABCLIA [id number] [place] [address] [place] Eosinophils (Bld) [#/Vol] 0.17 10*3/uL Normal <0.46 [facility] Comment on above: Order Comment: Speci men Type: BLOOD SPECIMENOrdering Facility: [facility] Address: [address] [place] [address] Performed By: #### 5 7021-8 ####[facility] LABCLIA [id number] [place] [address] [place] Eosinophils/100 WBC (Bld) 1.6 % Normal [facility] Comment on above: Order Comment: Speci men Type: BLOOD SPECIMENOrdering Facility: [facility] Address: [address] [place] [address] Performed By: #### 5 7021-8 ####[facility] LABCLIA [id number] [place] [address] [place] Erythrocyte distribution width (RBC) [Ratio] 12.7 % Normal 11.5-15.0 [facility] Comment on above: Order Comment: Speci men Type: BLOOD SPECIMENOrdering Facility: [facility] Address: [address] [place] [address] Performed By: #### 5 7021-8 ####[facility] LABCLIA [id number] [place] [address] [place] Hematocrit (Bld) [Volume fraction] 42.6 % Normal 36.0-46.0 [facility] Comment on above: Order Comment: Speci men Type: BLOOD SPECIMENOrdering Facility: [facility] Address: [address] [place] [address] Performed By: #### 5 7021-8 ####[facility] LABCLIA [id number] [place] [address] [place] Hemoglobin (Bld) [Mass/Vol] 13.9 g/dL Normal 11.5-15.5 [facility] Comment on above: Order Comment: Speci men Type: BLOOD SPECIMENOrdering Facility: [facility] Address: [address] [place] [address] Performed By: #### 5 7021-8 ####[facility] LABCLIA [id number] [place] [address] [place] Immature granulocytes (Bld) [#/Vol] 0.03 10*3/uL Normal <0.10 [facility] Comment on above: Order Comment: Speci men Type: BLOOD SPECIMENOrdering Facility: [facility] Address: [address] [place] [address] Performed By: #### 5 7021-8 ####[facility] LABCLIA [id number] [place] [address] [place] Immature granulocytes/100 WBC (Bld) 0.3 % Normal [facility] Comment on above: Order Comment: Speci men Type: BLOOD SPECIMENOrdering Facility: [facility] Address: [address] [place] [address] Performed By: #### 5 7021-8 ####[facility] LABCLIA [id number] [place] [address] [place] Lymphocytes (Bld) [#/Vol] 2.84 10*3/uL Normal 1.00-4.00 [facility] Comment on above: Order Comment: Speci men Type: BLOOD SPECIMENOrdering Facility: [facility] Address: [address] [place] [address] Performed By: #### 5 7021-8 ####[facility] LABIA [id number] [place] [address] [place] Lymphocytes/100 WBC (Bld) 26.6 % Normal [facility] Comment on above: Order Comment: Speci men Type: BLOOD SPECIMENOrdering Facility: [facility] Address: [address] [place] [address] Performed By: #### 5 7021-8 ####[facility] LABCLIA [id number] [place] [address] [place] MCH (RBC) [Entitic mass] 29.1 pg Normal 26.0-34.0 [facility] Comment on above: Order Comment: Speci men Type: BLOOD SPECIMENOrdering Facility: [facility] Address: [address] [place] [address] Performed By: #### 5 7021-8 ####[facility] LABCLIA [id number] [place] [address] [place] MCHC (RBC) [Mass/Vol] 32.6 g/dL Normal 30.5-36.0 [facility] Comment on above: Order Comment: Speci men Type: BLOOD SPECIMENOrdering Facility: [facility] Address: [address] [place] [address] Performed By: #### 5 7021-8 ####[facility] LABIA [id number] [place] [address] [place] MCV (RBC) [Entitic vol] 89.1 fL Normal 80.0-100.0 [facility] Comment on above: Order Comment: Speci men Type: BLOOD SPECIMENOrdering Facility: [facility] Address: [address] [place] [address] Performed By: #### 5 7021-8 ####[facility] LABCLIA [id number] [place] [address] [place] Monocytes (Bld) [#/Vol] 0.33 10*3/uL Normal <0.87 [facility] Comment on above: Order Comment: Speci men Type: BLOOD SPECIMENOrdering Facility: [facility] Address: [address] [place] [address] Performed By: #### 5 7021-8 ####[facility] LABIA [id number] [place] [address] [place] Monocytes/100 WBC (Bld) 3.1 % Normal [facility] Comment on above: Order Comment: Speci men Type: BLOOD SPECIMENOrdering Facility: [facility] Address: [address] [place] [address] Performed By: #### 5 7021-8 ####[facility] LABCLIA [id number] [place] [address] [place] Neutrophils (Bld) [#/Vol] 7.26 10*3/uL Normal 1.45-7.50 [facility] Comment on above: Order Comment: Speci men Type: BLOOD SPECIMENOrdering Facility: [facility] Address: [address] [place] [address] Performed By: #### 5 7021-8 ####[facility] LABCLIA [id number] [place] [address] [place] Neutrophils/100 WBC (Bld) 68.1 % Normal [facility] Comment on above: Order Comment: Speci men Type: BLOOD SPECIMENOrdering Facility: [facility] Address: [address] [place] [address] Performed By: #### 5 7021-8 ####[facility] LABCLIA [id number] [place] [address] [place] Nucleated RBC (Bld) [#/Vol] 10*3/uL Normal <0.01 [facility] Comment on above: Order Comment: Speci men Type: BLOOD SPECIMENOrdering Facility: [facility] Address: [address] [place] [address] Performed By: #### 5 7021-8 ####[facility] LABCLIA [id number] [place] [address] [place] Nucleated RBC/100 WBC (Bld) [Ratio] 0.0 /100 WBC Normal [facility] Comment on above: Order Comment: Speci men Type: BLOOD SPECIMENOrdering Facility: [facility] Address: [address] [place] [address] Performed By: #### 5 7021-8 ####[facility] LABCLIA [id number] [place] [address] [place] Platelet mean volume (Bld) [Entitic vol] 9.2 fL Normal 9.0-12.7 [facility] Comment on above: Order Comment: Speci men Type: BLOOD SPECIMENOrdering Facility: [facility] Address: [address] [place] [address] Performed By: #### 5 7021-8 ####[facility] LABCLIA [id number] [place] [address] [place] Platelets (Bld) [#/Vol] 336 10*3/uL Normal 150-400 [facility] Comment on above: Order Comment: Speci men Type: BLOOD SPECIMENOrdering Facility: [facility] Address: [address] [place] [address] Performed By: #### 5 7021-8 ####[facility] [id number] [place] [address] [place] RBC (Bld) [#/Vol] 4.78 10*6/uL Normal 3.90-5.[address] [facility] Comment on above: Order Comment: Speci men Type: BLOOD SPECIMENOrdering Facility: [facility] Address: [address] [place] [address] Performed By: #### 5 7021-8 ####[facility] [id number] [place] [address] [place] WBC (Bld) [#/Vol] 10.66 10*3/uL Normal 3.70-11.00 [facility] Comment on above: Order Comment: Speci men Type: BLOOD SPECIMENOrdering Facility: [facility] Address: [address] [place] [address] Performed By: #### 5 7021-8 ####[facility] [facility] [id number] [place] [address] [place] CNOVon 03-27-2024 CNOV Office Visit ([facility] ) GUNJAN THAO ([id number]) 1995 F Date Time Provider Department 03/27/24 10:00 AM XIN CUNHA [facility] During your visit today, we recorded the following information about you: Temperature Pulse Respiration Blood pressure 98.6 degrees 82/minute 16/minute 110/70 Weight 126.2 kg Xin Cunha APRN.FELLING BUCKING SUPERVISOR 03/27/2024 11:20 AM Signed Subjective Patient came in with complaints of right pinky finger pain. Patient says it does go slightly down into the hand. Patient dropped a box of bird seed on it in a car. Patient can wiggle the finger says she is unable to bend the finger. Patient says it is throbbing and painful. Patient says this happened about an hour or so ago. Patient denies any other symptoms at this time. The history is provided by the patient. No technical services assistant was used. Review of Systems Constitutional: Negative. Skin: Negative. Objective Physical Exam Constitutional: Appearance: Normal appearance. Pulmonary: Effort: Pulmonary effort is normal. Musculoskeletal: Hands: Comments: Area shipman small skin tear. Purple area shipman where patient is tender when palpated. No bruising noted at this time. Range of motion is within normal limits. Circulation and sensation intact. Strength seems to be decreased unable to determine if associated to pain or injury itself. Able to push against my hand with finger. Neurological: Mental Status: She is alert. PAST MEDICAL HISTORY Diagnosis Date Abnormal Pap smear of cervix 08/15/2014 ASCUS Abnormal ultrasound of breast 05/01/2012 Amenorrhea 02/19/2011 Anxiety disorder 02/09/2012 Asthma 07/03/2012 Bipolar disorder (HCC) 02/19/2011 Breast disorder fibrocystic breasts Depression 02/19/2011 Family history of Izaiah's disease 02/19/2011 Tex's disease 2023 HPV test positive 08/15/2014 Overweight(278.02) 02/19/2011 Palpitations 02/19/2011 Seizure (HCC) Seizures (HCC) 02/19/2011 Shortness of breath 10/25/2012 Syncope 02/19/2011 PAST SURGICAL HISTORY Procedure Laterality Date DELIVERY ONLY 06/02/2015 Had extensive surgery following delivery on the incision site. PAST SURGICAL HISTORY OF tongue clip PAST SURGICAL HISTORY OF age 16 yr right breast biopsy- benign TONSILLECTOMY AND ADENOIDECTOMY ALLERGIES Lamotrigine, Dust Mites, Erythromycin, Red Dye, Seasonal Allergies, and Sulfa (Sulfonamide Antibiotics) MEDICATIONS levothyroxine (LEVOXYL) 112 mcg tablet Take 1 tablet by mouth once daily. Take on empty stomach. For thyroid. benzonatate (TESSALON PERLE) 100 mg capsule Take 1 capsule by mouth three times a day as needed. (Patient not taking: Reported on 03/27/2024) LIDOCAINE VISCOUS 2 % solution Take 5-10 mL by mouth four times a day as needed. (Patient not taking: Reported on 03/27/2024) vit/iron fum/folic ac ( 1 + 1 ORAL) Take by mouth. (Patient not taking: Reported on 09/01/2023) FAMILY HISTORY Problem Relation Age of Onset Heart Mother other (pancreatitis) Father Hypothyroidism Brother Hypertension Brother Heart Maternal Grandmother Cancer Maternal Grandmother lung cancer Heart Maternal Grandfather Sleep Apnea Diabetes Paternal Grandmother No Known Problems Daughter Social History Tobacco Use Smoking status: Former Current packs/day: 0.50 Types: Cigarettes Smokeless tobacco: Never Tobacco comments: Patient vapes nicotine no longer smoking cigarettes Vaping Use Vaping status: current everyday user Substances: Nicotine Substance Use Topics Alcohol use: No Drug use: No ASSESSMENT/PLAN: 1. Pain - ICD9: 780.96, ICD10: R52 - XR HAND GENERAL 3V PA/LAT/OBL RIGHT * * * * Physician Interpretation * * * * EXAM TITLE: X-RAY HAND 3V PA/LAT/OBLIQUE EXAM DATE/TIME: 03/27/2024 10:52 AM COMPARISON: None. CLINICAL INDICATION/HISTORY: Pain. TECHNIQUE: PA, lateral and oblique views of the right hand are presented. FINDINGS: No acute fractures or subluxations are noted. The joint spaces are grossly maintained. No convincing evidence of distal radioulnar instability. The mineralization of the bones is normal. There is no significant soft tissue swelling. IMPRESSION IMPRESSION: No acute radiographic abnormalities seen in the right hand. Salvage Mechanic: ANGELITA Transcribe Date/Time: Mar 27 2024 10:52A Dictated by : KERRIE BOSTON MD Patient was educated to rest ice elevate alternate Tylenol Motrin. Was set up with a follow-up due to pain. Patient was instructed she should at least give it a week or so. Patient agreeable to care plan. Xin Cunha APRN.FELLING BUCKING SUPERVISOR Allergies As of Date: 03/27/2024 Noted Allergy Reaction LAMOTRIGINE 05/01/2012 4 - Hives DUST MITES 12/06/2012 14 - Other: See Comments Comments: Skin test positive in office ERYTHROMYCIN 02/19/2011 4 - Hives RED DYE 04/04/2007 4 - Hives SEASONAL ALLERG (more content not included)... Normal [facility] XR HAND 3V PA/LAT/OBL RTon 0 03-27-2024 XR HAND 3V PA/LAT/OBL RT * * *Final Repo rt* * * DATE OF EXAM: Mar 27 2024 10:52AM WOX [id number] - XR HAND 3V PA/LAT/OBL RT / PROCEDURE REASON: Pain * * * * Physician Interpretation * * * * EXAM TITLE: X-RAY HAND 3V PA/LAT/OBLIQUE EXAM DATE/TIME: 03/27/2024 10:52 AM COMPARISON: None. CLINICAL INDICATION/HISTORY: Pain. TECHNIQUE: PA, lateral and oblique views of the right hand are presented. FINDINGS: No acute fractures or subluxations are noted. The joint spaces are grossly maintained. No convincing evidence of distal radioulnar instability. The mineralization of the bones is normal. There is no significant soft tissue swelling. IMPRESSION: No acute radiographic abnormalities seen in the right hand. Salvage Mechanic: ANGELITA Transcribe Date/Time: Mar 27 2024 10:52A Dictated by : KERRIE BOSTON MD This examination was interpreted and the report reviewed and electronically signed by: KERRIE BOSTON MD on Mar 27 2024 11:01AM EST [id number] Normal [facility] XR Hand - right PA and Later al and Obliqueon 03-27-2024 IMPRESSION: No acute radiographic abnormalities seen in the right hand. Salvage Mechanic: PSCB Transcribe Date/Time: Mar 27 2024 10:52A Dictated by : KERRIE BOSTON MD This examination was interpreted and the report reviewed and electronically signed by: KERRIE BOSTON MD on Mar 27 2024 11:01AM EST DIVISION OF RADIOLOGY * * *Final Report* * * DATE OF EXAM: Mar 27 2024 10:52AM WOX 5346 - XR HAND 3V PA/LAT/OBL RT / PROCEDURE REASON: Pain * * * * Physician Interpretation * * * * EXAM TITLE: X-RAY HAND 3V PA/LAT/OBLIQUE EXAM DATE/TIME: 03/27/2024 10:52 AM COMPARISON: None. CLINICAL INDICATION/HISTORY: Pain. TECHNIQUE: PA, lateral and oblique views of the right hand are presented. FINDINGS: No acute fractures or subluxations are noted. The joint spaces are grossly maintained. No convincing evidence of distal radioulnar instability. The mineralization of the bones is normal. There is no significant soft tissue swelling. DIVISION OF RADIOLOGY Provider, Amber Morin [facility] - 03/27/2024 * * *Final Report* * * DATE OF EXAM: Mar 27 2024 10:52AM WOX 5346 - XR HAND 3V PA/LAT/OBL RT / PROCEDURE REASON: Pain * * * * Physician Interpretation * * * * EXAM TITLE: X-RAY HAND 3V PA/LAT/OBLIQUE EXAM DATE/TIME: 03/27/2024 10:52 AM COMPARISON: None. CLINICAL INDICATION/HISTORY: Pain. TECHNIQUE: PA, lateral and oblique views of the right hand are presented. FINDINGS: No acute fractures or subluxations are noted. The joint spaces are grossly maintained. No convincing evidence of distal radioulnar instability. The mineralization of the bones is normal. There is no significant soft tissue swelling. IMPRESSION IMPRESSION: No acute radiographic abnormalities seen in the right hand. Salvage Mechanic[facility] Transcribe Date/Time: Mar 27 2024 10:52A Dictated by : KERRIE BOSTON MD This examination was interpreted and the report reviewed and electronically signed by: KERRIE BOSTON MD on Mar 27 2024 11:01AM [facility] Radiology Study observation (narrative) Cristiana frances [facility] XR Hand - right PA and Later al and ObliqueOrdered By: [facility] Provider on 03-27-2024 [facility] Stan 03-12-2024 CNPN Telephone (FAMPWS) GUNJAN THAO ([id number]) 1995 F Date Time Provider Department 03/12/24 BURT EUGENE [facility] During your visit today, we recorded the following information about you: Burt Eugene MD 03/12/2024 9:50 AM Signed White count is improving. How feeling? Let me know Janett Bach MA 03/12/2024 1:35 PM Signed Pt notified. She is feeling almost 100% better. GABRIELLE Henderson William J, MD 03/12/2024 1:49 PM Signed Ok. Recheck cbc in one month to make sure if back to normal. Call if symptoms worsen at all or if not better in one to two weeks Sravani Grace MA 03/12/2024 4:27 PM Signed Patient was notified of provider message and verbalizes understanding. Sravani Grace MA March 12, 2024 4:26 PM Allergies As of Date: 03/12/2024 Noted Allergy Reaction LAMOTRIGINE 05/01/2012 4 - Hives DUST MITES 12/06/2012 14 - Other: See Comments Comments: Skin test positive in office ERYTHROMYCIN 02/19/2011 4 - Hives RED DYE 04/04/2007 4 - Hives SEASONAL ALLERGIES 12/06/2012 14 - Other: See Comments Comments: Tested positive for COCKROACH in office SULFA (SULFONAMIDE ANTIBIOTICS) 03/02/2012 2 - Rash Date Reviewed: 03/06/2024 Reviewed by: Monalisa Ang MA - Fully Assessed Reason for Visit: Results [95] Primary Visit Diagnosis:Leukocytosi s, unspecified type [D72.829] Order(s):COMPLETE BLOOD COUNT AND DIFFERENTIAL [SQCBCDIF] Order #: [id number] FUTURE Prescriptions as of 03/12/2024 - doxycycline monohydrate 100 mg tablet Take 1 tablet by mouth two times a day for 10 days. - benzonatate (TESSALON PERLE) 100 mg capsule Take 1 capsule by mouth three times a day as needed. - LIDOCAINE VISCOUS 2 % solution Take 5-10 mL by mouth four times a day as needed. - levothyroxine (LEVOXYL) 112 mcg tablet Take 1 tablet by mouth once daily. Take on empty stomach. For thyroid. - vit/iron fum/folic ac ( 1 + 1 ORAL) Take by mouth. Problem List As Of Date 03/12/2024 Noted Resolved Bipolar disorder (HCC) [F31.9] 02/19/2011 08/19/2023 Depression [F32.A] 02/19/2011 08/19/2023 Overweight(278.02) [E66.3] 02/19/2011 10/21/2014 Syncope [R55] 02/19/2011 10/21/2014 Palpitations [R00.2] 02/19/2011 10/21/2014 Amenorrhea [N91.2] 02/19/2011 09/05/2012 Family history of Izaiah's disease [Z83.49] 02/19/2011 10/21/2014 Anxiety disorder [F41.9] 02/09/2012 08/19/2023 Abnormal ultrasound of breast [R92.8] 05/01/2012 09/05/2012 Asthma [J45.909] 07/03/2012 Shortness of breath [R06.02] 10/25/2012 10/21/2014 Tobacco use in [O99.330] 10/21/2014 06/25/2015 Class 3 severe obesity with serious comorbidity* 5 Encounter for supervision of normal first pregn*10/21/2014 11/20/2014 ASCUS with positive high risk HPV [ZRE9273] 10/21/2014 History of seizure [Z87.898] 10/21/2014 Rubella non-immune status, antepartum [O09.899,*10/22/2014 06/25/2015 Supervision of high risk in first tri*11/20/2014 04/10/2015 Supervision of high risk in third tri*03/27/2015 06/25/2015 ASCUS with positive high risk HPV cervical [R87*08/10/2023 History of mood disorder [Z86.59] 08/19/2023 Encounter Status:Closed by SRAVANI GRACE on 03/12/24 Normal [facility] CBC W Auto Differential pane l (Bld)on 03-09-2024 Basophils (Bld) [#/Vol] 0.03 10*3/uL Normal <0.11 [facility] Comment on above: Order Comment: Speci men Type: BLOOD SPECIMENOrdering Facility: [facility] Address: [address] [place] [address] Performed By: #### 5 7021-8 ####[facility] LABCLIA [id number] [place] [address] [place] Basophils/100 WBC (Bld) 0.2 % Normal [facility] Comment on above: Order Comment: Speci men Type: BLOOD SPECIMENOrdering Facility: [facility] Address: [address] [place] [address] Performed By: #### 5 7021-8 ####[facility] LABCLIA [id number] [place] [address] [place] Differential cell count method Nom (Bld) Auto Normal [facility] Comment on above: Order Comment: Speci men Type: BLOOD SPECIMENOrdering Facility: [facility] Address: [address] [place] [address] Performed By: #### 5 7021-8 ####[facility] LABCLIA [id number] [place] [address] [place] Eosinophils (Bld) [#/Vol] 0.27 10*3/uL Normal <0.46 [facility] Comment on above: Order Comment: Speci men Type: BLOOD SPECIMENOrdering Facility: [facility] Address: [address] [place] [address] Performed By: #### 5 7021-8 ####[facility] LABCLIA [id number] [place] [address] [place] Eosinophils/100 WBC (Bld) 2.2 % Normal [facility] Comment on above: Order Comment: Speci men Type: BLOOD SPECIMENOrdering Facility: [facility] Address: [address] [place] [address] Performed By: #### 5 7021-8 ####[facility] LABCLIA [id number] [place] [address] [place] Erythrocyte distribution width (RBC) [Ratio] 12.7 % Normal 11.5-15.0 [facility] Comment on above: Order Comment: Speci men Type: BLOOD SPECIMENOrdering Facility: [facility] Address: [address] [place] [address] Performed By: #### 5 7021-8 ####[facility] LABIA [id number] [place] [address] [place] Hematocrit (Bld) [Volume fraction] 42.4 % Normal 36.0-46.0 [facility] Comment on above: Order Comment: Speci men Type: BLOOD SPECIMENOrdering Facility: [facility] Address: [address] [place] [address] Performed By: #### 5 7021-8 ####[facility] LABIA [id number] [place] [address] [place] Hemoglobin (Bld) [Mass/Vol] 13.6 g/dL Normal 11.5-15.5 [facility] Comment on above: Order Comment: Speci men Type: BLOOD SPECIMENOrdering Facility: [facility] Address: [address] [place] [address] Performed By: #### 5 7021-8 ####[facility] LABIA [id number] [place] [address] [place] Immature granulocytes (Bld) [#/Vol] 0.10 10*3/uL High <0.10 [facility] Comment on above: Order Comment: Speci men Type: BLOOD SPECIMENOrdering Facility: [facility] Address: [address] [place] [address] Performed By: #### 5 7021-8 ####[facility] LABIA [id number] [place] [address] [place] Immature granulocytes/100 WBC (Bld) 0.8 % Normal [facility] Comment on above: Order Comment: Speci men Type: BLOOD SPECIMENOrdering Facility: [facility] Address: [address] [place] [address] Performed By: #### 5 7021-8 ####[facility] LABCLIA [id number] [place] [address] [place] Lymphocytes (Bld) [#/Vol] 3.54 10*3/uL Normal 1.00-4.00 [facility] Comment on above: Order Comment: Speci men Type: BLOOD SPECIMENOrdering Facility: [facility] Address: [address] [place] [address] Performed By: #### 5 7021-8 ####[facility] LABCLIA [id number] [place] [address] [place] Lymphocytes/100 WBC (Bld) 28.6 % Normal [facility] Comment on above: Order Comment: Speci men Type: BLOOD SPECIMENOrdering Facility: [facility] Address: [address] [place] [address] Performed By: #### 5 7021-8 ####[facility] LABCLIA [id number] [place] [address] [place] MCH (RBC) [Entitic mass] 29.1 pg Normal 26.0-34.0 [facility] Comment on above: Order Comment: Speci men Type: BLOOD SPECIMENOrdering Facility: [facility] Address: [address] [place] [address] Performed By: #### 5 7021-8 ####[facility] LABCLIA [id number] [place] [address] [place] MCHC (RBC) [Mass/Vol] 32.1 g/dL Normal 30.5-36.0 [facility] Comment on above: Order Comment: Speci men Type: BLOOD SPECIMENOrdering Facility: [facility] Address: [address] [place] [address] Performed By: #### 5 7021-8 ####[facility] LABCLIA [id number] [place] [address] [place] MCV (RBC) [Entitic vol] 90.8 fL Normal 80.0-100.0 [facility] Comment on above: Order Comment: Speci men Type: BLOOD SPECIMENOrdering Facility: [facility] Address: [address] [place] [address] Performed By: #### 5 7021-8 ####[facility] LABCLIA [id number] [place] [address] [place] Monocytes (Bld) [#/Vol] 0.61 10*3/uL Normal <0.87 [facility] Comment on above: Order Comment: Speci men Type: BLOOD SPECIMENOrdering Facility: [facility] Address: [address] [place] [address] Performed By: #### 5 7021-8 ####[facility] LABCLIA [id number] [place] [address] [place] Monocytes/100 WBC (Bld) 4.9 % Normal [facility] Comment on above: Order Comment: Speci men Type: BLOOD SPECIMENOrdering Facility: [facility] Address: [address] [place] [address] Performed By: #### 5 7021-8 ####[facility] LABCLIA [id number] [place] [address] [place] Neutrophils (Bld) [#/Vol] 7.83 10*3/uL High 1.45-7.50 [facility] Comment on above: Order Comment: Speci men Type: BLOOD SPECIMENOrdering Facility: [facility] Address: [address] [place] [address] Performed By: #### 5 7021-8 ####[facility] LABCLIA [id number] [place] [address] [place] Neutrophils/100 WBC (Bld) 63.3 % Normal [facility] Comment on above: Order Comment: Speci men Type: BLOOD SPECIMENOrdering Facility: [facility] Address: [address] [place] [address] Performed By: #### 5 7021-8 ####[facility] LABCLIA [id number] [place] [address] [place] Nucleated RBC (Bld) [#/Vol] 10*3/uL Normal <0.01 [facility] Comment on above: Order Comment: Speci men Type: BLOOD SPECIMENOrdering Facility: [facility] Address: [address] [place] [address] Performed By: #### 5 7021-8 ####[facility] LABCLIA [id number] [place] [address] [place] Nucleated RBC/100 WBC (Bld) [Ratio] 0.0 /100 WBC Normal [facility] Comment on above: Order Comment: Speci men Type: BLOOD SPECIMENOrdering Facility: [facility] Address: [address] [place] [address] Performed By: #### 5 7021-8 ####[facility] LABCLIA [id number] [place] [address] [place] Platelet mean volume (Bld) [Entitic vol] 9.1 fL Normal 9.0-12.7 [facility] Comment on above: Order Comment: Speci men Type: BLOOD SPECIMENOrdering Facility: [facility] Address: [address] [place] [address] Performed By: #### 5 7021-8 ####[facility] LABCLIA [id number] [place] [address] [place] Platelets (Bld) [#/Vol] 295 10*3/uL Normal 150-400 [facility] Comment on above: Order Comment: Speci men Type: BLOOD SPECIMENOrdering Facility: [facility] Address: [address] [place] [address] Performed By: #### 5 7021-8 ####[facility] LABCLIA [id number] [place] [address] [place] RBC (Bld) [#/Vol] 4.67 10*6/uL Normal 3.90-5.[address] [facility] Comment on above: Order Comment: Speci men Type: BLOOD SPECIMENOrdering Facility: [facility] Address: [address] [place] [address] Performed By: #### 5 7021-8 ####[facility] [id number] [place] [address] [place] WBC (Bld) [#/Vol] 12.38 10*3/uL High 3.70-11.00 [facility] Comment on above: Order Comment: Speci men Type: BLOOD SPECIMENOrdering Facility: [facility] Address: [address] [place] [address] Performed By: #### 5 7021-8 ####[facility] [id number] [address] [place] CNPNon 03-07-2024 [facility] GUNJAN THAO ([id number]) 1995 F Date Time Provider Department 03/07/24 [facility]T EUGENE [facility] During your visit today, we recorded the following information about you: Burt Eugene MD 03/07/2024 9:57 AM Signed Willacy is negative. Her white count is up which is likely from the infection. Stay on doxycycline. If any worsening fever or symptoms, needs seen again. Recheck cbc end of this week Ara Bertrand RN 03/07/2024 11:04 AM Signed Pt called and is notified of providers results and instructions. Pt voices understanding. Ara Bertrand RN Allergies As of Date: 03/07/2024 Noted Allergy Reaction LAMOTRIGINE 05/01/2012 4 - Hives DUST MITES 12/06/2012 14 - Other: See Comments Comments: Skin test positive in office ERYTHROMYCIN 02/19/2011 4 - Hives RED DYE 04/04/2007 4 - Hives SEASONAL ALLERGIES 12/06/2012 14 - Other: See Comments Comments: Tested positive for COCKROACH in office SULFA (SULFONAMIDE ANTIBIOTICS) 03/02/2012 2 - Rash Date Reviewed: 03/06/2024 Reviewed by: Monalisa Ang MA - Fully Assessed Reason for Visit: Results [95] Primary Visit Diagnosis:Leukocytosi s, unspecified type [D72.829] Order(s):COMPLETE BLOOD COUNT AND DIFFERENTIAL [SQCBCDIF] Order #: [id number] FUTURE Prescriptions as of 03/07/2024 - doxycycline monohydrate 100 mg tablet Take 1 tablet by mouth two times a day for 10 days. - benzonatate (TESSALON PERLE) 100 mg capsule Take 1 capsule by mouth three times a day as needed. - LIDOCAINE VISCOUS 2 % solution Take 5-10 mL by mouth four times a day as needed. - levothyroxine (LEVOXYL) 112 mcg tablet Take 1 tablet by mouth once daily. Take on empty stomach. For thyroid. - vit/iron fum/folic ac ( 1 + 1 ORAL) Take by mouth. Problem List As Of Date 03/07/2024 Noted Resolved Bipolar disorder (HCC) [F31.9] 02/19/2011 08/19/2023 Depression [F32.A] 02/19/2011 08/19/2023 Overweight(278.02) [E66.3] 02/19/2011 10/21/2014 Syncope [R55] 02/19/2011 10/21/2014 Palpitations [R00.2] 02/19/2011 10/21/2014 Amenorrhea [N91.2] 02/19/2011 09/05/2012 Family history of [place]'s disease [Z83.49] 02/19/2011 10/21/2014 Anxiety disorder [F41.9] 02/09/2012 08/19/2023 Abnormal ultrasound of breast [R92.8] 05/01/2012 09/05/2012 Asthma [J45.909] 07/03/2012 Shortness of breath [R06.02] 10/25/2012 10/21/2014 Tobacco use in [O99.330] 10/21/2014 06/25/2015 Class 3 severe obesity with serious comorbidity* 5 Encounter for supervision of normal first pregn*10/21/2014 11/20/2014 ASCUS with positive high risk HPV [WZM9049] 10/21/2014 History of seizure [Z87.898] 10/21/2014 Rubella non-immune status, antepartum [O09.899,*10/22/2014 06/25/2015 Supervision of high risk in first tri*11/20/2014 04/10/2015 Supervision of high risk in third tri*03/27/2015 06/25/2015 ASCUS with positive high risk HPV cervical [R87*08/10/2023 History of mood disorder [Z86.59] 08/19/2023 Encounter Status:Closed by ARA BERTRAND on 03/07/24 Normal [facility] CBC W Auto Differential pane l (Bld)on 03-06-2024 Basophils (Bld) [#/Vol] 0.07 10*3/uL Normal <0.11 [facility] Comment on above: Order Comment: Speci men Type: BLOOD SPECIMENOrdering Facility: [facility] Address: [address] [place] [address] Performed By: #### 5 7021-8 ####[facility] LABCLIA [id number] [place] [address] [place] Basophils/100 WBC (Bld) 0.4 % Normal [facility] Comment on above: Order Comment: Speci men Type: BLOOD SPECIMENOrdering Facility: [facility] Address: [address] [place] [address] Performed By: #### 5 7021-8 ####[facility] LABCLIA [id number] [place] [address] [place] Differential cell count method Nom (Bld) Auto Normal [facility] Comment on above: Order Comment: Speci men Type: BLOOD SPECIMENOrdering Facility: [facility] Address: [address] [place] [address] Performed By: #### 5 7021-8 ####[facility] LABCLIA [id number] [place] [address] [place] Eosinophils (Bld) [#/Vol] 0.49 10*3/uL High <0.46 [facility] Comment on above: Order Comment: Speci men Type: BLOOD SPECIMENOrdering Facility: [facility] Address: [address] [place] [address] Performed By: #### 5 7021-8 ####[facility] LABCLIA [id number] [place] [address] [place] Eosinophils/100 WBC (Bld) 2.7 % Normal [facility] Comment on above: Order Comment: Speci men Type: BLOOD SPECIMENOrdering Facility: [facility] Address: [address] [place] [address] Performed By: #### 5 7021-8 ####[facility] LABIA [id number] [place] [address] [place] Erythrocyte distribution width (RBC) [Ratio] 12.6 % Normal 11.5-15.0 [facility] Comment on above: Order Comment: Speci men Type: BLOOD SPECIMENOrdering Facility: [facility] Address: [address] [place] [address] Performed By: #### 5 7021-8 ####[facility] LABCLIA [id number] [place] [address] [place] Hematocrit (Bld) [Volume fraction] 43.8 % Normal 36.0-46.0 [facility] Comment on above: Order Comment: Speci men Type: BLOOD SPECIMENOrdering Facility: [facility] Address: [address] [place] [address] Performed By: #### 5 7021-8 ####[facility] LABCLIA [id number] [place] [address] [place] Hemoglobin (Bld) [Mass/Vol] 14.0 g/dL Normal 11.5-15.5 [facility] Comment on above: Order Comment: Speci men Type: BLOOD SPECIMENOrdering Facility: [facility] Address: [address] [place] [address] Performed By: #### 5 7021-8 ####[facility] LABIA [id number] [place] [address] [place] Immature granulocytes (Bld) [#/Vol] 0.24 10*3/uL High <0.10 [facility] Comment on above: Order Comment: Speci men Type: BLOOD SPECIMENOrdering Facility: [facility] Address: [address] [place] [address] Performed By: #### 5 7021-8 ####[facility] LABIA [id number] [place] [address] [place] Immature granulocytes/100 WBC (Bld) 1.3 % Normal [facility] Comment on above: Order Comment: Speci men Type: BLOOD SPECIMENOrdering Facility: [facility] Address: [address] [place] [address] Performed By: #### 5 7021-8 ####[facility] LABIA [id number] [place] [address] [place] Lymphocytes (Bld) [#/Vol] 4.20 10*3/uL High 1.00-4.00 [facility] Comment on above: Order Comment: Speci men Type: BLOOD SPECIMENOrdering Facility: [facility] Address: [address] [place] [address] Performed By: #### 5 7021-8 ####[facility] LABIA [id number] [place] [address] [place] Lymphocytes/100 WBC (Bld) 22.9 % Normal [facility] Comment on above: Order Comment: Speci men Type: BLOOD SPECIMENOrdering Facility: [facility] Address: [address] [place] [address] Performed By: #### 5 7021-8 ####[facility] LABIA [id number] [place] [address] [place] MCH (RBC) [Entitic mass] 29.5 pg Normal 26.0-34.0 [facility] Comment on above: Order Comment: Speci men Type: BLOOD SPECIMENOrdering Facility: [facility] Address: [address] [place] [address] Performed By: #### 5 7021-8 ####[facility] [id number] [place] [address] [place] MCHC (RBC) [Mass/Vol] 32.0 g/dL Normal 30.5-36.0 [facility] Comment on above: Order Comment: Speci men Type: BLOOD SPECIMENOrdering Facility: [facility] Address: [address] [place] [address] Performed By: #### 5 7021-8 ####[facility] LABIA [id number] [place] [address] [place] MCV (RBC) [Entitic vol] 92.4 fL Normal 80.0-100.0 [facility] Comment on above: Order Comment: Speci men Type: BLOOD SPECIMENOrdering Facility: [facility] Address: [address] [place] [address] Performed By: #### 5 7021-8 ####[facility] LABIA [id number] [place] [address] [place] Monocytes (Bld) [#/Vol] 0.76 10*3/uL Normal <0.87 [facility] Comment on above: Order Comment: Speci men Type: BLOOD SPECIMENOrdering Facility: [facility] Address: [address] [place] [address] Performed By: #### 5 7021-8 ####[facility] LABCLIA [id number] [place] [address] [place] Monocytes/100 WBC (Bld) 4.1 % Normal [facility] Comment on above: Order Comment: Speci men Type: BLOOD SPECIMENOrdering Facility: [facility] Address: [address] [place] [address] Performed By: #### 5 7021-8 ####[facility] LABCLIA [id number] [place] [address] [place] Neutrophils (Bld) [#/Vol] 12.61 10*3/uL High 1.45-7.50 [facility] Comment on above: Order Comment: Speci men Type: BLOOD SPECIMENOrdering Facility: [facility] Address: [address] [place] [address] Performed By: #### 5 7021-8 ####[facility] LABCLIA [id number] [place] [address] [place] Neutrophils/100 WBC (Bld) 68.6 % Normal [facility] Comment on above: Order Comment: Speci men Type: BLOOD SPECIMENOrdering Facility: [facility] Address: [address] [place] [address] Performed By: #### 5 7021-8 ####[facility] LABCLIA [id number] [place] [address] [place] Nucleated RBC (Bld) [#/Vol] 10*3/uL Normal <0.01 [facility] Comment on above: Order Comment: Speci men Type: BLOOD SPECIMENOrdering Facility: [facility] Address: [address] [place] [address] Performed By: #### 5 7021-8 ####[facility] LABCLIA [id number] [place] [address] [place] Nucleated RBC/100 WBC (Bld) [Ratio] 0.0 /100 WBC Normal [facility] Comment on above: Order Comment: Speci men Type: BLOOD SPECIMENOrdering Facility: [facility] Address: [address] [place] [address] Performed By: #### 5 7021-8 ####[facility] LABCLIA [id number] [place] [address] [place] Platelet mean volume (Bld) [Entitic vol] 8.8 fL Low 9.0-12.7 [facility] Comment on above: Order Comment: Speci men Type: BLOOD SPECIMENOrdering Facility: [facility] Address: [address] [place] [address] Performed By: #### 5 7021-8 ####[facility] LABCLIA [id number] [place] [address] [place] Platelets (Bld) [#/Vol] 346 10*3/uL Normal 150-400 [facility] Comment on above: Order Comment: Speci men Type: BLOOD SPECIMENOrdering Facility: [facility] Address: [address] [place] [address] Performed By: #### 5 7021-8 ####[facility] LABCLIA [id number] [place] [address] [place] RBC (Bld) [#/Vol] 4.74 10*6/uL Normal 3.90-5.[address] [facility] Comment on above: Order Comment: Speci men Type: BLOOD SPECIMENOrdering Facility: [facility] Address: [address] [place] [address] Performed By: #### 5 7021-8 ####[facility] LABCLIA [id number] [place] [address] [place] WBC (Bld) [#/Vol] 18.37 10*3/uL High 3.70-11.00 [facility] Comment on above: Order Comment: Speci men Type: BLOOD SPECIMENOrdering Facility: [facility] Address: [address] [place] [address] Performed By: #### 5 7021-8 ####[facility] LABCLIA [id number] [id number] [id number] [place] CN[place] 03-06-2024 CNOV Office Visit (FAMPWS ) GUNJAN THAO ([id number]) 1995 F Date Time Provider Department 03/06/24 2:00 PM [facility] During your visit today, we recorded the following information about you: Temperature Pulse Respiration Blood pressure 97.9 degrees 89/minute 16/minute 128/80 Weight 126.6 kg Burt Eugene MD 03/06/2024 2:11 PM Signed Patient presents with: Sore Throat: X 13 days HPI: Patient presents today for office visit for follow up. Started beg of feb. Had sore throat. Some cough. Left ear is uncomfortable. No shortness of breath. No nausea or vomiting or diarrhrea. Main issue is her throat. Still urinating. Is uncomfortable to swallow but able to swallow. Has been tested twice for strep and then also covid. Her daughter was ill as well. She ended up being treated eventually for a sinus infection. Was negative for strep. MEDICATIONS: Current Outpatient Medications Medication Sig levothyroxine (LEVOXYL) 112 mcg tablet Take 1 tablet by mouth once daily. Take on empty stomach. For thyroid. LIDOCAINE VISCOUS 2 % solution Take 5-10 mL by mouth four times a day as needed. vit/iron fum/folic ac ( 1 + 1 ORAL) Take by mouth. (Patient not taking: Reported on 09/01/2023) No current facility-administered medications for this visit. ALLERGIES: ALLERGIES Allergen Reactions Lamotrigine Hives Dust Mites Other: See Comments Skin test positive in office Erythromycin Hives Red Dye Hives Seasonal Allergies Other: See Comments Tested positive for COCKROACH in office Sulfa (Sulfonamide * Rash PAST MEDICAL HISTORY Diagnosis Date Abnormal Pap smear of cervix 08/15/2014 ASCUS Abnormal ultrasound of breast 05/01/2012 Amenorrhea 02/19/2011 Anxiety disorder 02/09/2012 Asthma 07/03/2012 Bipolar disorder (HCC) 02/19/2011 Breast disorder fibrocystic breasts Depression 02/19/2011 Family history of Springdale's disease 02/19/2011 Tex's disease 2023 HPV test positive 08/15/2014 Overweight(278.02) 02/19/2011 Palpitations 02/19/2011 Seizure (HCC) Seizures (HCC) 02/19/2011 Shortness of breath 10/25/2012 Syncope 02/19/2011 PAST SURGICAL HISTORY Procedure Laterality Date DELIVERY ONLY 06/02/2015 Had extensive surgery following delivery on the incision site. PAST SURGICAL HISTORY OF tongue clip PAST SURGICAL HISTORY OF age 16 yr right breast biopsy- benign TONSILLECTOMY AND ADENOIDECTOMY FAMILY HISTORY Problem Relation Age of Onset Heart Mother other (pancreatitis) Father Hypothyroidism Brother Hypertension Brother Heart Maternal Grandmother Cancer Maternal Grandmother lung cancer Heart Maternal Grandfather Sleep Apnea Diabetes Paternal Grandmother No Known Problems Daughter Social History Tobacco Use Smoking status: Former Current packs/day: 0.50 Types: Cigarettes Smokeless tobacco: Never Tobacco comments: Patient vapes nicotine no longer smoking cigarettes Vaping Use Vaping status: current everyday user Substances: Nicotine Substance Use Topics Alcohol use: No Drug use: No Reviewed current medications, allergies, past medical history, surgical history, family history and social history today. REVIEW OF SYSTEMS All other reviewed and negative other than HPI. VITALS: BP 128/80 Pulse 89 Temp 36.6 ?C (97.9 ?F) (Temporal) Resp 16 Wt 126.6 kg (279 lb) LMP 02/23/2024 (Approximate) SpO2 99% BMI 47.89 kg/m? Last 4 Encounter Wt Readings: Date: Wt: 03/06/2024 126.6 kg (279 lb) 02/28/2024 126.2 kg (278 lb 3.5 oz) 02/26/2024 125.3 kg (276 lb 3.8 oz) 09/01/2023 127 kg (280 lb) PHYSICAL EXAMINATION: General appearance: Well appearing, alert, in no acute distress, well-hydrated, well nourished. Skin: Skin color, texture, turgor normal, no suspicious rashes or lesions Head: Normocephalic, no masses, lesions, tenderness or abnormalities Eyes: Anicteric sclera. Pupils are equally round and reactive to light. Extraocular movements are intact. Ears: External ears normal, canals clear Nose/Sinuses: Nares normal, septum midline, mucosa normal, no drainage or sinus tenderness Oropharynx: Lips, mucosa, and tongue normal, teeth and gums normal, oropharynx normal Neck: Supple, no adenopathy; Lungs: Lungs clear to auscultation. No wheezing, rhonchi, rales Heart: RRR without murmur, gallop, or rubs. No ectopy Abdomen: Normal abdominal exam, Abdomen soft, non-tender. Bowel sounds normal. No masses, organomegaly Extremities: No deformities, edema, skin discoloration, clubbing or cyanosis. Good capillary refill. ASSESSMENT/PLAN: 1. Pharyngitis, unspecified etiology - ICD9: 462, ICD10: J02.9 (primary diagnosis) - Discussed risks and benefits of new medication with the patient. Advised them to call if any side effects or questions. Red flags for re-assessme (more content not included)... Normal [facility] Heteroph Ab Ser Ql LAon - Heterophile Ab LA Ql (S) Negative Normal Negative [facility] Comment on above: Order Comment: Speci men Type: BLOOD SPECIMENOrdering Facility: [facility] Address: [address] [place] [address] Result Comment: Infe ctious Mononucleosis rapid test is used as an aid in diagnosis of acute infection with Fabiano-Hammond virus (EBV). The antibody levels may occasionally remain elevated up to several months after a primary EBV infection. Final interpretation should be done in conjunction with EBV-specific serology and clinical correlation. False positive results may occasionally be seen with other infectious agents such as Cytomegalovirus, Toxoplasma, and HIV among others as well as non-infectious conditions such as lymphoma. Clinical correlation is required. Performed By: #### 5 213-4 ####[facility] LABCLIA [id number] [address] [place] [address] [place] CNOVon 02-28-2024 CNOV Office Visit (UCWSTR ) GUNJAN THAO ([id number]) 1995 F Date Time Provider Department 02/28/24 2:30 PM CRYSTAL [facility] During your visit today, we recorded the following information about you: Temperature Pulse Respiration Blood pressure 97.6 degrees 74/minute 18/minute 106/64 Weight 126.2 kg Crystal Lim APRN.CNP 02/28/2024 3:27 PM Signed Subjective HPI HPI Gunjan Thao is a 28 year old female who presents today for CC of st, cough. This started 5 days ago. Has tried otc medication for relief. Symptoms are worsened by nothing. Vapes. Denies possibility of being . 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 PAST SURGICAL HISTORY OF tongue clip PAST SURGICAL HISTORY OF age 16 yr right breast biopsy- benign TONSILLECTOMY AND ADENOIDECTOMY ALLERGIES Lamotrigine, Dust Mites, Erythromycin, Red Dye, Seasonal Allergies, and Sulfa (Sulfonamide Antibiotics) MEDICATIONS levothyroxine (LEVOXYL) 112 mcg tablet Take 1 tablet by mouth once daily. Take on empty stomach. For thyroid. predniSONE (DELTASONE) 20 mg tablet Take 2 tablets by mouth once daily for 5 days. LIDOCAINE VISCOUS 2 % solution Take 5-10 mL by mouth four times a day as needed. vit/iron fum/folic ac ( 1 + 1 ORAL) Take by mouth. (Patient not taking: Reported on 09/01/2023) FAMILY HISTORY Problem Relation Age of Onset Heart Mother other (pancreatitis) Father Hypothyroidism Brother Hypertension Brother Heart Maternal Grandmother Cancer Maternal Grandmother lung cancer Heart Maternal Grandfather Sleep Apnea Diabetes Paternal Grandmother No Known Problems Daughter Social History Tobacco Use Smoking status: Former Current packs/day: 0.50 Types: Cigarettes Smokeless tobacco: Never Tobacco comments: Patient vapes nicotine no longer smoking cigarettes Vaping Use Vaping status: current everyday user Substances: Nicotine Substance Use Topics Alcohol use: No Drug use: No Review of Systems Constitutional: Negative for fever. HENT: Positive for sore throat. Negative for congestion, ear pain and nosebleeds. Respiratory: Positive for cough (improving). Negative for shortness of breath and wheezing. Musculoskeletal: Negative for neck pain. Skin: Negative for itching and rash. Objective Physical Exam Constitutional: General: She is not in acute distress. Appearance: She is not toxic-appearing or diaphoretic. HENT: Head: Normocephalic and atraumatic. Right Ear: Hearing, tympanic membrane, ear canal and external ear normal. Left Ear: Hearing, tympanic membrane, ear canal and external ear normal. Nose: Nose normal. Mouth/Throat: Lips: [place]. Mouth: Mucous membranes are moist. Pharynx: Uvula midline. Posterior oropharyngeal erythema present. No pharyngeal swelling, oropharyngeal exudate or uvula swelling. Eyes: General: Lids are normal. No scleral icterus. Right eye: No discharge. Left eye: No discharge. Conjunctiva/sclera: Conjunctivae normal. Pupils: Pupils are equal, round, and reactive to light. Neck: Trachea: Trachea normal. Cardiovascular: Rate and Rhythm: Normal rate and regular rhythm. Heart sounds: Normal heart sounds. Pulmonary: Effort: Pulmonary effort is normal. Breath sounds: Normal breath sounds. Musculoskeletal: Cervical back: Normal range of motion and neck supple. Lymphadenopathy: Cervical: No cervical adenopathy. Right cervical: No superficial cervical adenopathy. Left cervical: No superficial cervical adenopathy. Skin: Findings: No rash. Neurological: Mental Status: She is alert and oriented to person, place, and time. ASSESSMENT/PLAN: 1. Sore throat - ICD9: 462, ICD10: J02.9 - suspect viral - Group A strep molecular testing negative - Discussed supportive care treatment with fluids, rest and analgesia. - The patient should follow up in 3-5 days if symptoms persist or worsen - STREP A MOLECULAR (POC) - PREDNISONE 20 MG TABLET - LIDOCAINE HCL 2 % MUCOSAL SOLUTION Crystal Lim APRN.CNP Allergies As of Date: 02/28/2024 Noted Allergy Reaction LAMOTRIGINE 05/01/2012 4 - Hives DUST MITE (more content not included)... Normal [facility] STREP A MOLECULAR (POC)on Procedural Control Valid [facility] Strep A (POCT) Negative Negative [facility] CNOVon 02-26-2024 CNOV Office Visit (UCWSTR ) GUNJAN THAO ([id number]) 1995 F Date Time Provider Department 02/26/24 11:30 AM GUNJAN GREENE [facility] During your visit today, we recorded the following information about you: Temperature Pulse Respiration Blood pressure 98.3 degrees 83/minute 16/minute 153/94 Weight Last Period 125.3 kg 02/23/24 Gunjan Greene APRN.FELLING BUCKING SUPERVISOR 02/26/2024 11:46 AM Signed This note was created using NoteWriter. Subjective Gunjan Milton Master is a 28 year old female. 28 year old female with PMH asthma, seizures, ASCUS, and anxiety presents for illness. Acute onset 3 days ago +sore throat +lymph node +cough, wet in morning +productive sputum +body aches Denies N/V?D Denies fever or chills Denies eye or ear complaints Has used Dayquil +vapes Denies inability to handle secretions. Denies muffled voice. The history is provided by the patient. No technical services assistant was used. Sore Throat This is a new problem. The current episode started in the past 7 days. The problem has been unchanged. Neither side of throat is experiencing more pain than the other. There has been no fever. The pain is at a severity of 7/10. The pain is moderate. Associated symptoms include congestion, coughing, headaches and swollen glands. Pertinent negatives include no abdominal pain, diarrhea, drooling, ear discharge, ear pain, hoarse voice, plugged ear sensation, neck pain, shortness of breath, stridor, trouble swallowing or vomiting. She has had no exposure to strep or mono. Treatments tried: Dayquil. The treatment provided no relief. 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 PAST SURGICAL HISTORY OF tongue clip PAST SURGICAL HISTORY OF age 16 yr right breast biopsy- benign TONSILLECTOMY AND ADENOIDECTOMY ALLERGIES Lamotrigine, Dust Mites, Erythromycin, Red Dye, Seasonal Allergies, and Sulfa (Sulfonamide Antibiotics) MEDICATIONS levothyroxine (LEVOXYL) 112 mcg tablet Take 1 tablet by mouth once daily. Take on empty stomach. For thyroid. vit/iron fum/folic ac ( 1 + 1 ORAL) Take by mouth. (Patient not taking: Reported on 09/01/2023) FAMILY HISTORY Problem Relation Age of Onset Heart Mother other (pancreatitis) Father Hypothyroidism Brother Hypertension Brother Heart Maternal Grandmother Cancer Maternal Grandmother lung cancer Heart Maternal Grandfather Sleep Apnea Diabetes Paternal Grandmother No Known Problems Daughter Social History Tobacco Use Smoking status: Former Current packs/day: 0.50 Types: Cigarettes Smokeless tobacco: Never Tobacco comments: Patient vapes nicotine no longer smoking cigarettes Vaping Use Vaping status: current everyday user Substances: Nicotine Substance Use Topics Alcohol use: No Drug use: No Review of Systems Constitutional: Negative for chills, diaphoresis, fatigue and fever. HENT: Positive for congestion, rhinorrhea and sore throat. Negative for drooling, ear discharge, ear pain, hoarse voice and trouble swallowing. Eyes: Negative for pain, discharge, redness and itching. Respiratory: Positive for cough. Negative for shortness of breath and stridor. Cardiovascular: Negative for chest pain, palpitations and leg swelling. Gastrointestinal: Negative for abdominal pain, diarrhea and vomiting. Musculoskeletal: Negative for arthralgias, back pain, gait problem and neck pain. Skin: Negative for color change, pallor, rash and wound. Allergic/Immunologic: Positive for environmental allergies and food allergies. Negative for immunocompromised state. Neurological: Positive for headaches. Hematological: Negative for adenopathy. Does not bruise/bleed easily. Psychiatric/Behaviora l: Negative for agitation and behavioral problems. Objective BP 153/94 Pulse 83 Temp 36.8 ?C (98.3 ?F) (Left Tympanic) Resp 16 Wt 125.3 kg (276 lb 3.8 oz) LMP 02/23/2024 (Approximate) SpO2 97% BMI 47.42 kg/m? Physical Exam Vitals and nursing note reviewed. Constitutional: General: She is not in acute distress. Appearance: Normal appearance. She is normal weight. She is not ill-appearing, toxic-appearing or diaphoretic. HENT: Head: Normocephalic and atraumatic (more content not included)... Normal [facility] COVID AND INFLUENZA A/B AND RSV PCR, ROUTINEon 02-26-2024 SARS-CoV-2 (COVID-19) RNA BEVERLEY+probe Ql (Unsp spec) SARS-COV-2 (AGENT OF COVID-19) RNA: Not detected INFLUENZA A RNA: Not detected INFLUENZA B RNA: Not detected RESPIRATORY SYNCYTIAL VIRUS (RSV) RNA: Not detected Normal [facility] Comment on above: Performed By: #### C VFLRS ####[facility] LABCLIA [id number] [place] [id number] [place] STREP A MOLECULAR (POC)on Procedural Control Valid [facility] Strep A (POCT) Negative Negative [facility] T4 Free SerPl-mCncon 024 Free T4 [Mass/Vol] 1.4 ng/dL Normal 0.9-1.7 [facility] Comment on above: Order Comment: Speci men Type: BLOOD SPECIMENOrdering Facility: [facility] Address: [address] [place] [address] Performed By: #### 3 016-3, 3024-7 ####[facility] LABCLIA [id number] [place] [address] [place] TSH SerPl-aCncon 11-12-2023 TSH Qn 2.390 m[IU]/L Normal 0.270-4.200 [facility] Comment on above: Order Comment: Speci men Type: BLOOD SPECIMENOrdering Facility: [facility] Address: [address] [place] [address] Result Comment: If t he patient is , TSH reference range varies by gestational period: First Trimester (weeks 9-12): 0.180-2.990 mIU/L Second Trimester: 0.110-3.980 mIU/L Third Trimester: 0.480-4.710 mIU/L Nito Rose et al. A Practical Approach for the Verifications and Determination of Site- and Trimester-Specific Reference Intervals for Thyroid Function tests in . Thyroid, 2019:29:3:412-420. Kapil E, et al. 2017 Guidelines of the Citizen Of [place] Thyroid Association for the Diagnosis and Management of Thyroid Disease during and the . Thyroid, 2017:27:3:315-389. Performed By: #### 3 016-3, 3024-7 ####[facility] LABCLIA [id number] [place] [id number] [place] CNPNon 09-02-2023 CNPN Telephone (OBGYW) GUNJAN THAO ([id number]) 1995 F Date Time Provider Department 09/02/23 AURORA TRAVIS During your visit today, we recorded the following information about you: Estefani Medina RN 09/02/2023 11:37 AM Signed ----- Message from Aurora Travis MD sent at 09/02/2023 11:27 AM EDT ----- Notify pt benign pathology Repeat pap and HPV 12 months Estefani Medina RN 09/02/2023 11:38 AM Signed Left message to call office. LAVELL Santos Jennifer, RN 09/02/2023 1:17 PM Signed Patient notified. Samantha Dumont RN Allergies As of Date: 09/02/2023 Noted Allergy Reaction LAMOTRIGINE 05/01/2012 4 - Hives DUST MITES 12/06/2012 14 - Other: See Comments Comments: Skin test positive in office ERYTHROMYCIN 02/19/2011 4 - Hives RED DYE 04/04/2007 4 - Hives SEASONAL ALLERGIES 12/06/2012 14 - Other: See Comments Comments: Tested positive for COCKROACH in office SULFA (SULFONAMIDE ANTIBIOTICS) 03/02/2012 2 - Rash Date Reviewed: 09/01/2023 Reviewed by: Magda Ulloa MA - Fully Assessed Reason for Visit: Results [95] Prescriptions as of 09/02/2023 - vit/iron fum/folic ac ( 1 + 1 ORAL) Take by mouth. - levothyroxine (LEVOXYL) 112 mcg tablet Take 1 tablet by mouth once daily. Take on empty stomach. For thyroid. Problem List As Of Date 09/02/2023 Noted Resolved Bipolar disorder (HCC) [F31.9] 02/19/2011 08/19/2023 Depression [F32.A] 02/19/2011 08/19/2023 Overweight(278.02) [E66.3] 02/19/2011 10/21/2014 Syncope [R55] 02/19/2011 10/21/2014 Palpitations [R00.2] 02/19/2011 10/21/2014 Amenorrhea [N91.2] 02/19/2011 09/05/2012 Family history of [place]dale's disease [Z83.49] 02/19/2011 10/21/2014 Anxiety disorder [F41.9] 02/09/2012 08/19/2023 Abnormal ultrasound of breast [R92.8] 05/01/2012 09/05/2012 Asthma [J45.909] 07/03/2012 Shortness of breath [R06.02] 10/25/2012 10/21/2014 Tobacco use in [O99.330] 10/21/2014 06/25/2015 Class 3 severe obesity with serious comorbidity* 5 Encounter for supervision of normal first pregn*10/21/2014 11/20/2014 ASCUS with positive high risk HPV [CGT9749] 10/21/2014 History of seizure [Z87.898] 10/21/2014 Rubella non-immune status, antepartum [O09.899,*10/22/2014 06/25/2015 Supervision of high risk in first tri*11/20/2014 04/10/2015 Supervision of high risk in third tri*03/27/2015 06/25/2015 ASCUS with positive high risk HPV cervical [R87*08/10/2023 History of mood disorder [Z86.59] 08/19/2023 Encounter Status:Closed by SAMANTHA DUMONT on 09/02/23 [facility] CNOVon 09-01-2023 CNOV Office Visit (OBGYWM ) GUNJAN THAO ([id number]) 1995 F Date Time Provider Department 09/01/23 11:10 AM AURORA TRAVIS OBRAJAT During your visit today, we recorded the following information about you: Blood pressure Weight Last Period 112/78 127 kg 08/25/23 Aurora Travis MD 09/01/2023 5:09 PM Signed Hotel Superintendent offered: Patient declines. Gunjan is a 28 year old Female who presents today for a colposcopy. The patient's last pap smear was ASCUS with positive HPV from July 2023. Patient has a history of abnormal pap: Yes. The patient has had prior treatment: none. test: negative UNIVERSAL PROTOCOL / SAFETY CHECKLIST Procedure to be Performed: Colposcopy with possible biopsies. Sign In: A Moment of CARE was completed. Personnel directly involved with the procedure wore the appropriate PPE (Personal Protective Equipment). Patient/Surrogate Stated/Verified: PATIENT VERIFIED(optional for EMERGENT procedures): Patient name, Date of , Relevant allergies, and The intended procedure Time Out Communication: Intended patient and procedure match the source documents. Consent documented and matches the intended procedure. Sign Out: SIGN OUT (optional for EMERGENT procedures): All specimen containers correctly labeled. All instruments, equipment, possible retained foreign bodies accounted for. Post-procedure follow-up management communicated and Plan of Care Visit completed when applicable. PROCEDURE: EXTERNAL GENITALIA: Normal in appearance without lesions VAGINA: Normal in appearance without lesions CERVIX: Speculum placed in vagina and excellent visualization of cervix achieved. Cervix swabbed x 3 with 3% acetic acid solution. Cervix grossly normal. Squamocolumnar junction visualized. No punctations, mosaicism or atypical vasculature noted. Possible acetowhite change at 6 o'clock at transformation zone. BIOPSY: Done at 6:00 ECC: done HEMOSTASIS: Obtained with pressure Procedure Summary: Patient tolerated procedure well and colposcopy was adequate. ASSESSMENT: HPV effect PLAN: Specimens labeled and sent to Pathology. Will notify patient of results in 1-2 weeks. Post-procedure instructions reviewed and written material given to the patient. DO Laila Larsen Reanna, MA 09/01/2023 10:48 AM Signed YOUR RECOVERY It may take a few weeks for your cervix to heal. While your cervix heals, you may have: - Vaginal bleeding (less than a normal menstrual period) - Mild cramping - A brown-black vaginal discharge (similar to coffee grounds) which is a result of the paste used to help stop bleeding from the procedure Do NOT put anything in the vagina for 1 week after your colposcopy if your doctor does a biopsy of your cervix. This includes sex, tampons, and douches. If you have any discomfort, you may take an over the counter pain medication (motrin, advil, ibuprofen, tylenol, etc). If this does not relieve your discomfort, contact your doctor's office for a prescription strength pain medication. It is okay to wear a sanitary pad until the discharge and spotting stops. RISKS Although problems seldom occur with colposcopy, there can be some complications. You may feel faint during and shortly after the procedure as well as have some bleeding and vaginal discharge after the procedure. There is also a risk of infection after the procedure. These complications are rare and can be easily treated. You should contact you doctor is you have any of the following: - Heavy bleeding (more than your normal period) - Bleeding with clots - Severe abdominal pain - Fever (more than 100.4F) - Foul smelling vaginal discharge RESULTS If a biopsy was taken, we will have the results of your biopsy in 1-2 weeks. If you do not hear the results of your biopsy after 2 weeks, please contact your physicians office for the results. Depending on the biopsy results, your doctor will determine your follow up plan which may include further testing or treatments. STAYING HEALTHY After the procedure, you will need to see your doctor for follow up visits during the year. At these visits your doctor will check the health of your cervix with a pap smear. After three normal pap smears, your doctor will allow you to return to having exams once a year. If you have another abnormal pap smear, you may need closer follow up for longer or you may need additional treatment. By making a few lifestyle changes after the procedure, you can help protect the health of your cervix: - Have regular pelvic exams and pap smears as ordered by your doctor. - Stop smoking as smoking increases your risk of developing a cancer of the cervix - If you have more than one sexual partner, limit your number of partners and use condoms to reduce your risks of STDs. If you have any additional questions, please (more content not included)... Normal [facility] SURGICAL PATHOLOGYon 024 CASE REPORT Normal [facility] Comment on above: Order Comment: Speci men Type: TISSUE SPECIMENOrdering Facility: [facility] Address: [address] [place] [address] Result Comment: Surg ica Pathology Report Case: [id number] Authorizing Provider: Aurora Travis MD Collected: 09/01/2023 11:25 AM Ordering Location: OB/Gynecology Received: 09/01/2023 11:39 AM Pathologist: Sherine Tracey MD Specimens: A) - Endocervix, Curettings, ECC B) - Cervix, Biopsy, 6 o'clock Performed By: #### S ####[facility] LABCLIA [id number] [place] [address] [place] CLINICAL HISTORY ASCUS postive HPV Normal [facility] Comment on above: Order Comment: Speci men Type: TISSUE SPECIMENOrdering Facility: [facility] Address: [address] [place] [address] Performed By: #### S ####[facility] LABCLIA [id number] [address] STATES OF [facility] FINAL DIAGNOSIS Normal [facility] Comment on above: Order Comment: Speci men Type: TISSUE SPECIMENOrdering Facility: [facility] Address: [address] [place] [address] Result Comment: A. E ndocervix, curettage: -Endocervical mucosa with no significant pathologic abnormality. B. Cervix, 6 o'clock, biopsy: -Transformation zone mucosa with inflammation and reactive changes. Performed By: #### S ####[facility] LABCLIA [id number] [address] [place] FINAL PERFORMING LAB Normal [facility] Comment on above: Order Comment: Speci men Type: TISSUE SPECIMENOrdering Facility: [facility] Address: [address] [place] [address] Result Comment: Diag nostic interpretation performed at [facility], [address] [place] [address] CLIA# [id number] Fire Management Technician: Florentin Hobbs M.D. Performed By: #### S ####[facility] LABIA [id number] [place] [address] [place] GROSS DESCRIPTION Normal [facility] Comment on above: Order Comment: Speci men Type: TISSUE SPECIMENOrdering Facility: [facility] Address: [address] [place] [address] Result Comment: A. E ndocervix, Curettings Received in formalin are multiple alvarez, soft feathery segments of material aggregating to 0.1 by less than 0.1 by less than 0.1 cm. Totally submitted in one cassette. May not survive processing. B. Cervix, Biopsy Received in formalin is one piece of alvarez, soft mucosal covered tissue measuring 0.4 x 0.3 x 0.3 cm. Totally submitted in one cassette. VY September 01, 2023 5:41 PM Gross examination performed at [facility], [address] [place] [address] Performed By: #### S ####[facility] LABIA [id number] [place] [address] [place] UA DIP,URINE HCG (POC)on Beta HCG ( test) Ql (U) Negative Negative [facility] Comment on above: Location:[facility], [facility] [place], [address] Cbx Operator (POCT) Internal QC [facility] Location:[facility], [address] [place], [address] [facility] POINT OF CARE [facility] CNCOon 08-19-2023 CNCO Letter Text Normal [facility] UA DIP,URINE HCG (POC)on Beta HCG ( test) Ql (U) Negative Negative [facility] Comment on above: Location:[facility], [address] [place], [address] Cbx Operator (POCT) Internal QC [facility] Location:[facility], [address], [place], [address] [facility] POINT OF CARE [facility] XR RIBS/CHEST 3V AP RIB/OBLS /CXR RIGHTon 01-25-2022 [facility] XR Ribs - right Views and Ch est PAon 01-25-2022 Addendum by Provider , [facility] on 01/25/2022 4:32 PM EST * * *Final Report* * * * * * SEE BOTTOM OF REPORT FOR ADDENDED TEXT * * * DATE OF EXAM: Jan 25 2022 2:19PM WOX [id number] - XR RIB/CHST 3V AP RIB/OBL/CHST R / PROCEDURE REASON: Rib pain on right side * * * * Physician Interpretation * * * * * * * * * * * * ORIGINAL REPORT * * * * * * * * EXAMINATION: XR RIB/CHST 3V AP RIB/OBL/CHST R HISTORY: Rib pain on right side. TECHNIQUE: XR RIB/CHST 3V AP RIB/OBL/CHST R Laterality: RIGHT Number of different views (projections): 3 M: XB_1 COMPARISON: Comparison is made to right rib series from 20 August 2011 RESULT: Frontal radiograph of the chest and dedicated views of the right ribs show no evidence of pneumothorax, hemothorax or pulmonary contusion. The visualized bony structures demonstrate subacute healing fracture involving the posterolateral aspect of the right eighth rib. Ribs are otherwise unremarkable. IMPRESSION: Negative ribs. * * * * * * * * ADDENDUM #1 * * * * * * * * There is a typographical error in the impression of this report. It should read: IMPRESSION: Subacute healing fracture posterolateral aspect of the right eighth rib. Salvage Mechanic: PSCB Transcribe Date/Time: Jan 25 2022 4:30P Dictated by : CLARENCE TURPIN MD This examination was interpreted and the report reviewed and electronically signed by: CLARENCE TURPIN MD on Jan 25 2022 4:22PM EST This document has been addended by: CLARENCE TURPIN MD on Jan 25 2022 4:30PM EST [facility] Radiology Study observation (narrative) [facility] XR Ribs - right Views and Ch est PAOrdered By: Cc Provider on 01-25-2022 [facility] Vital Signs Date Time Vital Sign Value Performing Clinician Facility 10-01-2024 20:31-0400 Body temperature 97.9 [degF] Dr. Burt Eugene MD Work Phone: 0(311)955-205507 [place] [address] 10-01-2024 20:31-0400 Diastolic blood pressure 67 mm[Hg] Dr. Burt Eugene MD Work Phone: 2(635)900-666224 [place] [address] 10-01-2024 20:31-0400 Heart rate 68 /min Dr. Burt Eugene MD Work Phone: 1(171)557-479724 [place] [address] 10-01-2024 20:31-0400 Respiratory rate 16 /min Dr. Burt Eugene MD Work Phone: 4(210)910-688724 [place] [address] 10-01-2024 20:31-0400 SaO2% (BldA) [Mass fraction] 100 % Dr. Burt Eugene MD Work Phone: 7(834)225-442824 [place] [address] 10-01-2024 20:31-0400 Systolic blood pressure 117 mm[Hg] Dr. Burt Eugene MD Work Phone: 4(663)075-985524 [place] [address] 10-01-2024 15:33-0400 Body height 165.[address] Burt Eugene MD Work Phone: 1(650)914-319024 [place] [address] 10-01-2024 15:33-0400 Body mass index (BMI) [Ratio] 44.6 kg/m2 Dr. Burt Eugene MD Work Phone: 0(141)171-750407 [place] [address] 10-01-2024 15:33-0400 Body weight 121.[address] Burt Eugene MD Work Phone: 2(111)757-985207 [place] [address] 07-27-2024 11:08-0400 Body height 158.5 cm Sherine Galvin APRN.FELLING BUCKING SUPERVISOR Work Phone: [facility] 07-27-2024 11:08-0400 Body mass index (BMI) [Ratio] 47.49 kg/m2 Sherine Galvin APRN.FELLING BUCKING SUPERVISOR Work Phone: [facility] 07-27-2024 11:08-0400 Body weight 119.3 kg Sherine Galvin APRN.FELLING BUCKING SUPERVISOR Work Phone: [facility] 07-27-2024 11:08-0400 Diastolic blood pressure 77 mm[Hg] Sherine Galvin APRN.FELLING BUCKING SUPERVISOR Work Phone: [facility] 07-27-2024 11:08-0400 Systolic blood pressure 110 mm[Hg] Sherine Galvin APRN.FELLING BUCKING SUPERVISOR Work Phone: [facility] 03-27-2024 10:08-0500 Body mass index (BMI) [Ratio] 47.76 kg/m2 Xin Cunha APRN.FELLING BUCKING SUPERVISOR Work Phone: [facility] 03-27-2024 10:08-0500 Body temperature 98.6 [degF] Xin Cunha APRN.FELLING BUCKING SUPERVISOR Work Phone: [facility] 03-27-2024 10:08-0500 Body weight 126.2 kg Xin Cunha APRN.FELLING BUCKING SUPERVISOR Work Phone: [facility] 03-27-2024 10:08-0500 Diastolic blood pressure 70 mm[Hg] Xin Cunha APRN.FELLING BUCKING SUPERVISOR Work Phone: [facility] 03-27-2024 10:08-0500 Heart rate 82 /min Xin Cunha APRN.FELLING BUCKING SUPERVISOR Work Phone: [facility] 03-27-2024 10:08-0500 Respiratory rate 16 /min Xin Cunha APRN.FELLING BUCKING SUPERVISOR Work Phone: [facility] 03-27-2024 10:08-0500 SaO2% (BldA) [Mass fraction] 99 % Xin Cunha APRN.FELLING BUCKING SUPERVISOR Work Phone: [facility] 03-27-2024 10:08-0500 Systolic blood pressure 110 mm[Hg] Xin Cunha APRN.FELLING BUCKING SUPERVISOR Work Phone: [facility] 03-06-2024 13:39-0500 Body mass index (BMI) [Ratio] 47.89 kg/m2 Burt Eugene MD Work Phone: [facility] 03-06-2024 13:39-0500 Body temperature 97.9 [degF] Burt Eugene MD Work Phone: [facility] 03-06-2024 13:39-0500 Body weight 126.55 kg Burt Eugene MD Work Phone: [facility] 03-06-2024 13:39-0500 Diastolic blood pressure 80 mm[Hg] Burt Eugene MD Work Phone: [facility] 03-06-2024 13:39-0500 Heart rate 89 /min Burt Eugene MD Work Phone: [facility] 03-06-2024 13:39-0500 Respiratory rate 16 /min Burt Eugene MD Work Phone: [facility] 03-06-2024 13:39-0500 SaO2% (BldA) [Mass fraction] 99 % Burt Eugene MD Work Phone: [facility] 03-06-2024 13:39-0500 Systolic blood pressure 128 mm[Hg] Burt Eugene MD Work Phone: [facility] 02-28-2024 14:35-0500 Body mass index (BMI) [Ratio] 47.76 kg/m2 Crystal Raphael GUEST RELATIONS EXECUTIVE.FELLING BUCKING SUPERVISOR Work Phone: [facility] 02-28-2024 14:35-0500 Body temperature 97.59 [degF] Crystal Raphael GUEST RELATIONS EXECUTIVE.FELLING BUCKING SUPERVISOR Work Phone: [facility] 02-28-2024 14:35-0500 Body weight 126.2 kg Crystal Raphael GUEST RELATIONS EXECUTIVE.FELLING BUCKING SUPERVISOR Work Phone: [facility] 02-28-2024 14:35-0500 Diastolic blood pressure 64 mm[Hg] Crystal Raphael GUEST RELATIONS EXECUTIVE.FELLING BUCKING SUPERVISOR Work Phone: [facility] 02-28-2024 14:35-0500 Heart rate 74 /min Crystal Raphael GUEST RELATIONS EXECUTIVE.FELLING BUCKING SUPERVISOR Work Phone: [facility] 02-28-2024 14:35-0500 Respiratory rate 18 /min Crystal Raphael GUEST RELATIONS EXECUTIVE.FELLING BUCKING SUPERVISOR Work Phone: [facility] 02-28-2024 14:35-0500 SaO2% (BldA) [Mass fraction] 97 % Crystal King GUEST RELATIONS EXECUTIVE.FELLING BUCKING SUPERVISOR Work Phone: [facility] 02-28-2024 14:35-0500 Systolic blood pressure 106 mm[Hg] Crystal Lim GUEST RELATIONS EXECUTIVE.FELLING BUCKING SUPERVISOR Work Phone: [facility] 02-26-2024 11:23-0500 Body mass index (BMI) [Ratio] 47.42 kg/m2 Gunjan Greene GUEST RELATIONS EXECUTIVE.FELLING BUCKING SUPERVISOR Work Phone: [facility] 02-26-2024 11:23-0500 Body temperature 98.29 [degF] Gunjan Greene GUEST RELATIONS EXECUTIVE.FELLING BUCKING SUPERVISOR Work Phone: [facility] 02-26-2024 11:23-0500 Body weight 125.3 kg Gunjan Greene GUEST RELATIONS EXECUTIVE.FELLING BUCKING SUPERVISOR Work Phone: [facility] 02-26-2024 11:23-0500 Diastolic blood pressure 94 mm[Hg] Gunjan Greene GUEST RELATIONS EXECUTIVE.FELLING BUCKING SUPERVISOR Work Phone: [facility] 02-26-2024 11:23-0500 Heart rate 83 /min Gunjan Greene GUEST RELATIONS EXECUTIVE.FELLING BUCKING SUPERVISOR Work Phone: [facility] 02-26-2024 11:23-0500 Respiratory rate 16 /min Gunjan Greene GUEST RELATIONS EXECUTIVE.FELLING BUCKING SUPERVISOR Work Phone: [facility] 02-26-2024 11:23-0500 SaO2% (BldA) [Mass fraction] 97 % Gunjan Greene GUEST RELATIONS EXECUTIVE.FELLING BUCKING SUPERVISOR Work Phone: [facility] 02-26-2024 11:23-0500 Systolic blood pressure 153 mm[Hg] Gunjan Greene GUEST RELATIONS EXECUTIVE.FELLING BUCKING SUPERVISOR Work Phone: [facility] 09-01-2023 11:03-0400 Body mass index (BMI) [Ratio] 48.06 kg/m2 Aurora Travis MD Work Phone: [facility] 09-01-2023 11:03-0400 Body weight 127.01 kg Aurora Travis MD Work Phone: [facility] 09-01-2023 11:03-0400 Diastolic blood pressure 78 mm[Hg] Aurora Travis MD Work Phone: [facility] 09-01-2023 11:03-0400 Systolic blood pressure 112 mm[Hg] Aurora Travis MD Work Phone: [facility] 07-26-2023 09:20-0400 Body height 162.6 cm Sherine Galvin APRN.FELLING BUCKING SUPERVISOR Work Phone: [facility] 07-26-2023 09:20-0400 Body mass index (BMI) [Ratio] 48.51 kg/m2 Sherine Galvin APRN.FELLING BUCKING SUPERVISOR Work Phone: [facility] 07-26-2023 09:20-0400 Body weight 128.19 kg Sherine Galvin APRN.FELLING BUCKING SUPERVISOR Work Phone: [facility] 07-26-2023 09:20-0400 Diastolic blood pressure 78 mm[Hg] Sherine Ocampohrie GUEST RELATIONS EXECUTIVE.FELLING BUCKING SUPERVISOR Work Phone: [facility] 07-26-2023 09:20-0400 Systolic blood pressure 104 mm[Hg] Sherine Galvin GUEST RELATIONS EXECUTIVE.FELLING BUCKING SUPERVISOR Work Phone: [facility] 07-22-2022 14:16-0400 Body height 162.6 cm Sherine Galvin GUEST RELATIONS EXECUTIVE.FELLING BUCKING SUPERVISOR Work Phone: [facility] 07-22-2022 14:16-0400 Body weight 123.38 kg Sherine Galvin GUEST RELATIONS EXECUTIVE.FELLING BUCKING SUPERVISOR Work Phone: [facility] 07-22-2022 14:16-0400 Diastolic blood pressure 72 mm[Hg] Sherine Galvin GUEST RELATIONS EXECUTIVE.FELLING BUCKING SUPERVISOR Work Phone: [facility] 07-22-2022 14:16-0400 Systolic blood pressure 124 mm[Hg] Sherine Ocapmohrie GUEST RELATIONS EXECUTIVE.FELLING BUCKING SUPERVISOR Work Phone: [facility] 01-25-2022 13:38-0500 Body height 160 cm Burt Eugene MD Work Phone: [facility] 01-25-2022 13:38-0500 Body weight 122.56 kg Burt Eugene MD Work Phone: [facility] 01-25-2022 13:38-0500 Diastolic blood pressure 80 mm[Hg] Burt Eugene MD Work Phone: [facility] 01-25-2022 13:38-0500 Heart rate 93 /min Burt Eugene MD Work Phone: [facility] 01-25-2022 13:38-0500 SaO2% (BldA) [Mass fraction] 99 % Burt Eugene MD Work Phone: [facility] 01-25-2022 13:38-0500 Systolic blood pressure 118 mm[Hg] Burt Eugene MD Work Phone: [facility] 11-27-2021 17:09-0400 Body temperature 97 [degF] Gala Carmen GUEST RELATIONS EXECUTIVE.FELLING BUCKING SUPERVISOR Work Phone: [facility] 11-27-2021 17:09-0400 Body weight 121.2 kg Gala Carmen GUEST RELATIONS EXECUTIVE.FELLING BUCKING SUPERVISOR Work Phone: [facility] 11-27-2021 17:09-0400 Diastolic blood pressure 88 mm[Hg] Gala Carmen GUEST RELATIONS EXECUTIVE.FELLING BUCKING SUPERVISOR Work Phone: [facility] 11-27-2021 17:09-0400 Heart rate 96 /min Gala Carmen GUEST RELATIONS EXECUTIVE.FELLING BUCKING SUPERVISOR Work Phone: [facility] 11-27-2021 17:09-0400 Respiratory rate 18 /min Gala Carmen GUEST RELATIONS EXECUTIVE.FELLING BUCKING SUPERVISOR Work Phone: [facility] 11-27-2021 17:09-0400 SaO2% (BldA) [Mass fraction] 97 % Gala Carmen GUEST RELATIONS EXECUTIVE.FELLING BUCKING SUPERVISOR Work Phone: [facility] 11-27-2021 17:09-0400 Systolic blood pressure 116 mm[Hg] Gala Carmen GUEST RELATIONS EXECUTIVE.FELLING BUCKING SUPERVISOR Work Phone: [facility] 06-25-2021 15:49-0400 Body weight 122.02 kg Nurse Wstr Work Phone: [facility] 06-25-2021 15:49-0400 Diastolic blood pressure 78 mm[Hg] Nurse Wstr Work Phone: [facility] 06-25-2021 15:49-0400 Systolic blood pressure 128 mm[Hg] Nurse Wstr Work Phone: [facility] Encounters Encounter Date Encounter Type Care Provider Facility Start: 10-01-2024 End: 10-01-2024 Emergency department patient visit Dr. Burt Eugene MD Work Phone: -Emergency Department Work Phone: Start: 08-14-2024 End: 08-14-2024 Telephone encounter Sherine Galvin APRN.FELLING BUCKING SUPERVISOR Work Phone: OB/Gynecology Comment on above: Abnormal Pap (/) Start: 07-27-2024 End: 07-27-2024 Patient encounter procedure Sherine Galvin APRN.FELLING BUCKING SUPERVISOR Work Phone: OB/Gynecology Comment on above: Encounter for gyneco logical examination (general) (routine) without abnormal findings (Primary Dx); Screening for cervical cancer; Encounter for screening for human papillomavirus (HPV) Start: 07-27-2024 End: 07-27-2024 Patient encounter status Sherine Galvin APRN.FELLING BUCKING SUPERVISOR Work Phone: [facility] Start: 07-27-2024 End: 07-27-2024 ambulatory SHERINE GALVIN Facility:[facility] Start: 07-27-2024 Encounter for gynecological examination (general) (routine) without abnormal findings SHERINE GALVIN [facility] Start: 07-03-2024 End: 07-03-2024 Refill Burt Eugene MD Work Phone: [facility] [place] Comment on above: Refill Request Start: 04-23-2024 End: 04-23-2024 ambulatory BURT EUGENE Facility:[facility] Start: 03-27-2024 End: 03-27-2024 Subsequent hospital visit by physician [facility] [place] Work Phone: Radiology Comment on above: Pain [R52] Start: 03-27-2024 End: 03-27-2024 ambulatory [facility] Facility:[facility] Start: 03-27-2024 End: 03-27-2024 Patient encounter procedure Xin Cunha APRN.FELLING BUCKING SUPERVISOR Work Phone: [facility] Comment on above: Pain (Primary Dx) Start: 03-12-2024 End: 03-12-2024 Telephone encounter Burt Eugene MD Work Phone: [facility] [place] Comment on above: Results Start: 03-09-2024 End: 03-09-2024 ambulatory [facility] Facility:[facility] Start: 03-07-2024 End: 03-07-2024 Telephone encounter Burt Eugene MD Work Phone: [facility] [place] Comment on above: Results Start: 03-06-2024 End: 03-06-2024 [facility] Facility:[facility] Start: 03-06-2024 End: 03-06-2024 Patient encounter procedure Burt Eugene MD Work Phone: [facility] [place] Comment on above: Pharyngitis, unspeci fied etiology (Primary Dx); Sinobronchitis Start: 02-28-2024 End: 02-28-2024 [facility] Facility:[facility] Start: 02-28-2024 End: 02-28-2024 Patient encounter procedure Crystal Lim GUEST RELATIONS EXECUTIVE.FELLING BUCKING SUPERVISOR Work Phone: [facility] Comment on above: Sore throat (Primary Dx) Start: 02-26-2024 End: 02-26-2024 ambulatory [facility] Facility:[facility] Start: 02-26-2024 End: 02-26-2024 Patient encounter procedure Gunjan Greene GUEST RELATIONS EXECUTIVE.FELLING BUCKING SUPERVISOR Work Phone: [facility] Comment on above: URI, acute (Primary Dx); Acute cough Start: 01-02-2024 End: 01-02-2024 Refill Margoth Fox GUEST RELATIONS EXECUTIVE.FELLING BUCKING SUPERVISOR Work Phone: [facility] [place] Comment on above: Refill Request Start: 11-12-2023 End: 11-12-2023 ambulatory MARGOTH FOX Facility:[facility] Start: 09-02-2023 Telephone encounter Aurora armenta MD Work Phone: OB/Gynecology Comment on above: Results Start: 09-01-2023 End: 09-01-2023 ambulatory AURORA TRAVIS Facility:[facility] Start: 09-01-2023 End: 09-01-2023 Patient encounter procedure Aurora Travis MD Work Phone: OB/Gynecology Comment on above: ASCUS with positive high risk HPV cervical (Primary Dx) Start: 08-19-2023 End: 08-19-2023 [facility] Burt Eugene MD Work Phone: [facility] [place] Comment on above: History of mood diso rder (Primary Dx); Class 3 severe obesity with serious comorbidity and body mass index (BMI) of 45.0 to 49.9 in adult, unspecified obesity type (HCC) Start: 08-17-2023 Admission to [facility] Burt Eugene MD Work Phone: [facility] [place] Comment on above: Bariatric Surgery Start: 08-17-2023 ambulatory Burt Eugene MD Work Phone: [facility] [place] Start: 08-11-2023 Telephone encounter Margoth Cameron harris APRN.FELLING BUCKING SUPERVISOR Work Phone: [facility] [place] Comment on above: Results (Labs ) Start: 07-26-2023 End: 07-26-2023 Patient encounter procedure Sherine Galvin APRN.FELLING BUCKING SUPERVISOR Work Phone: OB/Gynecology Comment on above: Encounter for gyneco logical examination with abnormal finding (Primary Dx); Irregular menstrual cycle; Screening for cervical cancer; Encounter for screening for human papillomavirus (HPV); Class 3 severe obesity with serious comorbidity and body mass index (BMI) of 45.0 to 49.9 in adult, unspecified obesity type (HCC) Start: 07-26-2023 End: 07-26-2023 Patient encounter status Sherine Galvin APRN.FELLING BUCKING SUPERVISOR Work Phone: [facility] Work Phone: Start: 07-07-2023 Telephone encounter Margoth Cameron harris APRN.FELLING BUCKING SUPERVISOR Work Phone: [facility] [place] Comment on above: Results (Labs ); Ord ers Start: 06-02-2023 Telephone encounter Margothlen harris GUEST RELATIONS EXECUTIVE.FELLING BUCKING SUPERVISOR Work Phone: [facility] [place] Comment on above: Results; Orders (Lab s ) Start: 04-29-2023 Telephone encounter Burt Eugene MD Work Phone: [facility] [place] Comment on above: Results Start: 07-22-2022 End: 07-22-2022 Patient encounter procedure Sherine Galvin APRN.FELLING BUCKING SUPERVISOR Work Phone: OB/Gynecology Comment on above: Encounter for gyneco logical examination (general) (routine) without abnormal findings (Primary Dx); Drug induced amenorrhea; Class 3 severe obesity with body mass index (BMI) of 45.0 to 49.9 in adult, unspecified obesity type, unspecified whether serious comorbidity present (HCC) Start: 07-22-2022 End: 07-22-2022 Patient encounter status Sherine Galvin APRN.FELLING BUCKING SUPERVISOR Work Phone: OB/Gynecology Start: 01-25-2022 End: 01-25-2022 Subsequent hospital visit by physician Isaac [facility] [place] Work Phone: Radiology Comment on above: Rib pain on right si de [R07.81] Start: 01-25-2022 End: 01-25-2022 Patient encounter procedure Burt Eugene MD Work Phone: [facility] [place] Comment on above: Costochondritis (Zahira caitlin Dx); Rib pain on right side Start: 01-25-2022 Telephone encounter Burt Eugene MD Work Phone: [facility] [place] Comment on above: Results Start: 11-27-2021 End: 11-27-2021 Patient encounter procedure Gala Morales APRN.FELLING BUCKING SUPERVISOR Work Phone: [facility] Comment on above: Non-recurrent acute serous otitis media of both ears (Primary Dx) Start: 06-25-2021 End: 06-25-2021 Nursing evaluation of patient and report Nurse Study Specialist [facility] Work Phone: OB/Gynecology Comment on above: Encounter for manage ment and injection of depo-Provera (Primary Dx) Procedures Date Procedure Procedure Detail Performing Clinician Start: 10-01-2024 Computed tomography of abdomen and pelvis with intravenous contrast Dr. Burt Eugene MD Work Phone: Start: 10-01-2024 Urnls dip stick/tabl et reagent auto microscopy Dr. Burt Eugene MD Work Phone: Start: 10-01-[address] Burt Eugene MD Work Phone: Start: 03-27-2024 Radex hand minimum 3 views Xin Cunha APRN.FELLING BUCKING SUPERVISOR Work Phone: Start: 02-28-2024 STREP A MOLECULAR (POC) Mary Blevins PA-C Work Phone: Start: 02-26-2024 STREP A MOLECULAR (POC) Gunjan Greene APRN.FELLING BUCKING SUPERVISOR Work Phone: Start: 09-01-2023 UA DIP,URINE HCG (POC) Aurora Travis MD Work Phone: Start: 08-19-2023 Adult depression scr eening assessment Gunjan Greene APRN.FELLING BUCKING SUPERVISOR Work Phone: Start: 07-26-2023 UA DIP,URINE HCG (POC) Sherine Galvin APRN.FELLING BUCKING SUPERVISOR Work Phone: Start: 01-25-2022 Radex ribs uni w/posteroant ch minimum 3 views Burt Eugene MD Work Phone: Plan of Treatment Date Care Activity Detail Author Start: 07-25-2028 Screening for malign ant neoplasm of cervix [facility] Start: 01-06-2026 Screening for malign ant neoplasm of cervix Pap Testing [facility] Start: 07-30-2025 End: 07-30-2025 Patient encounter procedure 07/30/2025 2:00 PM EDT Office Visit OB/Gynecology [address] [place] [address] Sherine Galvin APRN.FELLING BUCKING SUPERVISOR [address] [place] [address] ANNUAL OB/Gynecology Comment on above: ANNUAL Start: 07-27-2025 Screening for malign ant neoplasm of cervix Cervical Cancer Screening [facility] Start: 03-11-2025 Urine microalbumin profile [facility] Start: 03-06-2025 Annual PCP Team Silicator saray Disease Visit Annual PCP Team Chronic Disease Visit [facility] Start: 11-19-2024 Influenza vaccination Influenz a Vaccine (Season Ended) [facility] Start: 10-01-2024 [facility] Start: 09-17-2024 End: 09-17-2024 Patient encounter procedure 09/17/2024 2:00 PM EDT Office Visit OB/Gynecology [address] [place] [address] Aurora Travis MD [address] [place] [address] Colposcopy OB/Gynecology Comment on above: Colposcopy Start: 08-18-2024 Annual PCP Team Silicator saray Disease Visit Annual PCP Team Chronic Disease Visit [facility] Start: 08-18-2024 Anxiety Screening Anxiety Screening [facility] Start: 08-18-2024 Depression Screening Depression Scre [facility] Start: 07-27-2024 End: 07-27-2024 Patient encounter procedure 07/27/2024 11:00 AM EDT Office Visit OB/Gynecology [address] [place] [address] Sherine Galvin APRN.FELLING BUCKING SUPERVISOR [address] [place] [address] Annual OB/Gynecology Comment on above: Annual Start: 07-25-2024 Screening for malign ant neoplasm of cervix Cervical Cancer Screening [facility] Start: 04-12-2024 End: 04-12-2024 ambulatory 04/12/2024 2:15 PM EST Results Only [facility] [address] [place] [address] [facility] Start: 04-04-2024 End: 04-04-2024 Patient encounter procedure 04/04/2024 2:30 PM EST Office Visit [facility] [place] [address] [place] [address] Jaswant Nguyen V, DO [address] [facility] [address] Right little finger injury [facility] [place] Comment on above: Right little finger injury Start: 03-25-2024 Annual PCP Team Silicator saray Disease Visit Annual PCP Team Chronic Disease Visit [facility] Start: 03-12-2024 End: 06-11-2024 CBC W Auto Differential panel - Blood COMPLETE BLOOD COUNT AND DIFFERENTIAL Lab Routine Leukocytosis, unspecified type Expected: 03/12/2024, Expires: 06/11/2024 [facility] Work Phone: Comment on above: Expected: 03/12/2024 , Expires: 06/11/2024 Start: 03-09-2024 End: 03-09-2024 ambulatory 03/09/2024 10:00 AM EST Results Only [facility] [address] [facility] [place] [address] [facility] Start: 03-07-2024 End: 06-06-2024 CBC W Auto Differential panel - Blood COMPLETE BLOOD COUNT AND DIFFERENTIAL Lab Routine Leukocytosis, unspecified type Expected: 03/07/2024, Expires: 06/06/2024 [facility] Work Phone: Comment on above: Expected: 03/07/2024 , Expires: 06/06/2024 Start: 03-06-2024 End: 06-05-2024 CBC W Auto Differential panel - Blood [facility] Work Phone: Comment on above: Expected: 03/06/2024 , Expires: 06/05/2024 Start: 03-06-2024 End: 06-05-2024 Heterophile Ab [Presence] in Serum by Latex agglutination [facility] Comment on above: Expected: 03/06/2024 , Expires: 06/05/2024 Start: 01-07-2024 PAP TESTING PAP TESTING [facility] Start: 01-07-2024 Screening for malign ant neoplasm of cervix Pap Testing [facility] Start: 11-20-2023 Covid-19 Vaccine ( season) Covid-19 Vaccine ( season) [facility] Start: 11-20-2023 Influenza vaccination [facility] Start: 11-12-2023 End: 11-12-2023 ambulatory 11/12/2023 11:45 AM EDT Results Only [facility] [address] [place] [address] [facility] Start: 11-11-2023 End: 02-10-2024 Thyrotropin [Units/volume] in Serum or Plasma THYROID STIMULATING HORMONE Lab Routine 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 Expected: 11/11/2023, Expires: 02/10/2024 [facility] Work Phone: Comment on above: Expected: 11/11/2023 , Expires: 02/10/2024 Start: 11-11-2023 End: 02-10-2024 Thyroxine (T4) free [Mass/volume] in Serum or Plasma T4 FREE/FREE THYROXINE Lab Routine 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 Expected: 11/11/2023, Expires: 02/10/2024 [facility] Comment on above: Expected: 11/11/2023 , Expires: 02/10/2024 Start: 09-01-2023 End: 09-01-2023 Patient encounter procedure 09/01/2023 11:10 AM EDT Office Visit OB/Gynecology [address] [place] [address] Aurora Travis MD [address] [place] [address] Colposcopy OB/Gynecology Comment on above: Colposcopy Start: 08-19-2023 End: 08-19-2023 Admission to same day surgery center 08/19/2023 4:40 PM EDT [facility] [address] [place] [address] Burt Eugene MD [address] [place] [address] Letter for surgery [facility] [place] Comment on above: Letter for surgery Start: 08-06-2023 End: 11-05-2023 Thyrotropin [Units/volume] in Serum or Plasma THYROID STIMULATING HORMONE Lab Routine 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 Expected: 08/06/2023, Expires: 11/05/2023 [facility] Work Phone: Comment on above: Expected: 08/06/2023 , Expires: 11/05/2023 Start: 08-06-2023 End: 11-05-2023 Thyroxine (T4) free [Mass/volume] in Serum or Plasma T4 FREE/FREE THYROXINE Lab Routine 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 Expected: 08/06/2023, Expires: 11/05/2023 [facility] Work Phone: Comment on above: Expected: 08/06/2023 , Expires: 11/05/2023 Start: 08-06-2023 End: 08-06-2023 ambulatory 08/06/2023 11:30 AM EDT Results Only [facility] [address] [facility] [place] [address] [facility] Start: 07-03-2023 End: 10-02-2023 Thyrotropin [Units/volume] in Serum or Plasma TSH BLD Lab Routine 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 Expected: 07/03/2023, Expires: 10/02/2023 [facility] Work Phone: Comment on above: Expected: 07/03/2023 , Expires: 10/02/2023 Start: 07-03-2023 End: 10-02-2023 Thyroxine (T4) free [Mass/volume] in Serum or Plasma T4 FREE/FREE THYROX Lab Routine 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 Expected: 07/03/2023, Expires: 10/02/2023 [facility] Work Phone: Comment on above: Expected: 07/03/2023 , Expires: 10/02/2023 Start: 06-30-2023 Screening for malign ant neoplasm of cervix HPV Testing [facility] Start: 03-21-2023 Behavioral Health Screening Behavioral Health Screening [facility] Start: 01-25-2023 ANNUAL PCP TEAM ERECTION SHOP SUPERVISOR SARAY DISEASE VISIT ANNUAL PCP TEAM CHRONIC DISEASE VISIT [facility] Start: 11-19-2022 Covid-19 Vaccine ( season) Covid-19 Vaccine () [facility] Start: 11-19-2022 Influenza vaccination [facility] Start: 11-19-2021 Influenza vaccination INFLUENZA (#1) [facility] Start: 09-11-2020 ANNUAL PCP TEAM ERECTION SHOP SUPERVISOR SARAY DISEASE VISIT ANNUAL PCP TEAM CHRONIC DISEASE VISIT [facility] Start: 12-06-2013 PNEUMOCOCCAL (2 - PCV) PNEUMOCOCCAL (2 - PCV) [facility] Start: 12-06-2013 Pneumococcal vaccination Pneumococcal Vaccine (2 of 2 - PCV) [facility] Start: 06-30-2011 Anxiety Screening Anxiety Screening [facility] Start: 06-30-2011 Depression Screening Depression Scre ening [facility] Start: 06-30-2011 SPIROMETRY SPIROMETRY [facility] Start: 1998 COVID-19 VACCINE (1) COVID-19 VACCIN E (1) [facility] Start: 1993 COVID-19 VACCINE (#1) COVID-19 VACCI NE (#1) [facility] COLPOSCOPY COLPOSCOPY Proce dures Routine ASCUS with positive high risk HPV cervical Ordered: 09/01/2023 [facility] Work Phone: Comment on above: Ordered: 09/01/2023 COVID & INFLUENZA A/ B & RSV PCR, ROUTINE COVID & INFLUENZA A/B & RSV PCR, ROUTINE Microbiology Routine URI, acute Ordered: 02/26/2024 [facility] Work Phone: Comment on above: Ordered: 02/26/2024 PAP TEST PAP TEST Lab Rou kanu Encounter for gynecological examination with abnormal finding Screening for cervical cancer Encounter for screening for human papillomavirus (HPV) 07/26/2023 10:16 AM EDT [facility] Work Phone: PAP TEST PAP TEST Lab Rou kanu Encounter for gynecological examination (general) (routine) without abnormal findings Screening for cervical cancer Encounter for screening for human papillomavirus (HPV) 07/27/2024 12:09 PM EDT [facility] Work Phone: Patient Education ED Abdominal P ain Unkn Cause Fem [facility] Work Phone: SURGICAL PATHOLOGY SURGICAL PATH OLOGY Lab Routine ASCUS with positive high risk HPV cervical 09/01/2023 11:25 AM EDT [facility] Immunizations Immunization Date Immunization Notes Care Provider Fa cili 01-06-2021 influenza, injectabl e, quadrivalent, contains preservative Nurse Wstr Work Phone: [facility] 01-06-2021 influenza virus vacc ine, unspecified formulation Burt Eugene MD Work Phone: [facility] 12-18-2019 influenza, injectabl e, quadrivalent, contains preservative Nurse Wstr Work Phone: [facility] Work Phone: 12-23-2015 influenza, injectabl e, quadrivalent, contains preservative Nurse Wstr Work Phone: [facility] 06-03-2015 measles, mumps and rubella virus vaccine Dr. Burt Eugene MD Work Phone: [facility] 03-11-2015 tetanus toxoid, redu jordan diphtheria toxoid, and acellular pertussis vaccine, adsorbed Nurse Wstr Work Phone: [facility] Work Phone: 12-18-2014 influenza, injectabl e, quadrivalent, contains preservative Nurse Wstr Work Phone: [facility] Work Phone: 12-06-2012 influenza virus vacc ine, unspecified formulation Nurse Wstr Work Phone: [facility] 12-06-2012 pneumococcal polysaccharide vaccine, 23 valent Nurse Wstr Work Phone: [facility] 10-25-2012 hepatitis A vaccine, unspecified formulation Nurse Wstr Work Phone: [facility] 10-25-2012 human papilloma viru s vaccine, quadrivalent Nurse Wstr Work Phone: [facility] 10-25-2012 Meningococcal, MCV4, unspecified conjugate formulation(groups A, C, Y and W-135) Nurse Wstr Work Phone: [facility] 03-31-2011 hepatitis A vaccine, unspecified formulation Nurse Wstr Work Phone: [facility] 03-31-2011 human papilloma viru s vaccine, quadrivalent Nurse Wstr Work Phone: [facility] 03-31-2011 influenza virus vacc ine, live, attenuated, for intranasal use Nurse Wstr Work Phone: [facility] 03-31-2011 meningococcal polysaccharide vaccine (MPSV4) Nurse Wstr Work Phone: [facility] 06-26-2007 human papilloma viru s vaccine, quadrivalent Nurse Wstr Work Phone: [facility] Work Phone: 04-04-2007 influenza virus vacc ine, live, attenuated, for intranasal use Nurse Wstr Work Phone: [facility] Work Phone: 04-04-2007 Meningococcal, MCV4, unspecified conjugate formulation(groups A, C, Y and W-135) Nurse Wstr Work Phone: [facility] Work Phone: 04-04-2007 tetanus toxoid, redu jordan diphtheria toxoid, and acellular pertussis vaccine, adsorbed Nurse Wstr Work Phone: [facility] Work Phone: 03-21-1999 Chicken Pox (disease) Nurse Wstr Work Phone: [facility] Work Phone: 07-09-1998 diphtheria, tetanus toxoids and pertussis vaccine Nurse Wstr Work Phone: [facility] Work Phone: 07-09-1998 measles, mumps and rubella virus vaccine Nurse Wstr Work Phone: [facility] Work Phone: 07-09-1998 poliovirus vaccine, inactivated Nurse Wstr Work Phone: [facility] Work Phone: 09-28-1994 diphtheria, tetanus toxoids and pertussis vaccine Nurse Wstr Work Phone: [facility] Work Phone: 07-13-1994 haemophilus influenz ae type b vaccine, HbOC conjugate Nurse Wstr Work Phone: [facility] Work Phone: 07-13-1994 measles, mumps and rubella virus vaccine Nurse Wstr Work Phone: [facility] Work Phone: 01-12-1994 diphtheria, tetanus toxoids and pertussis vaccine Nurse Wstr Work Phone: [facility] Work Phone: 01-12-1994 haemophilus influenz ae type b vaccine, HbOC conjugate Nurse Wstr Work Phone: [facility] Work Phone: 01-12-1994 hepatitis B vaccine, pediatric or pediatric/adolescent dosage Nurse Wstr Work Phone: [facility] Work Phone: 01-12-1994 poliovirus vaccine, inactivated Nurse Wstr Work Phone: [facility] Work Phone: 1993 diphtheria, tetanus toxoids and pertussis vaccine Nurse Wstr Work Phone: [facility] Work Phone: 1993 haemophilus influenz ae type b vaccine, HbOC conjugate Nurse Wstr Work Phone: [facility] Work Phone: 1993 poliovirus vaccine, inactivated Nurse Wstr Work Phone: [facility] Work Phone: 1993 diphtheria, tetanus toxoids and pertussis vaccine Nurse Wstr Work Phone: [facility] Work Phone: 1993 haemophilus influenz ae type b vaccine, HbOC conjugate Nurse Wstr Work Phone: [facility] Work Phone: 1993 poliovirus vaccine, inactivated Nurse Wstr Work Phone: [facility] Work Phone: 1993 hepatitis B vaccine, pediatric or pediatric/adolescent dosage Nurse Wstr Work Phone: [facility] Work Phone: 1993 hepatitis B vaccine, pediatric or pediatric/adolescent dosage Nurse Wstr Work Phone: [facility] Work Phone: Payers Date Payer Category Payer Medicaid [id number] 2015 Medicaid [facility] MEDICAID [id number] 2015-Present [phone] [address] [place] [address] Medicaid [id number] 2015 Medicaid [id number] 2015 Unknown [id number] Unknown Social History Date Type Detail Facility Start: 12-23-2015 End: 10-01-2024 Tobacco smoking status NHIS Smokes tobacco daily [facility] History of tobacco use Cigarette Smoker [facility] Start: 12-23-2015 End: 07-22-2022 Cigarettes smoked current (pack per day) - Reported 0.5 [facility] Start: 12-23-2015 End: 02-26-2024 Tobacco use and exposure Smokeless tobacco non-user [facility] Start: 06-25-2021 End: 07-27-2024 Alcohol intake Current non-drinker of alcohol (finding) [facility] Start: 12-18-2019 End: 04-03-2022 History SDOH Alcohol Frequency 1 [facility] Start: 12-18-2019 History SDOH Social Connections Phone 3 [facility] Start: 12-18-2019 End: 04-03-2022 History SDOH Social Connections Membership 2 [facility] Start: 12-18-2019 End: 04-03-2022 History SDOH Social Connections Living 8 [facility] Start: 12-18-2019 History SDOH Physical Activity DPW 6 [facility] Start: 12-18-2019 History SDOH Physical Activity MPS 15 [facility] Start: 12-18-2019 End: 04-03-2022 History SDOH Financial 5 [facility] Start: 09-10-2019 Education 11 [facility] Start: 1995 Sex Assigned At Female [facility] Work Phone: Start: 01-25-2022 End: 04-03-2022 History SDOH Alcohol Std Drinks 0 [facility] Start: 01-15-2022 End: 01-25-2022 Exposure to SARS-CoV-2 (event) Not sure [facility] Start: 07-22-2022 End: 02-26-2024 Tobacco smoking status NHIS Ex-smoker [facility] History of tobacco use Current smoker [facility] Start: 04-03-2022 History SDOH Social Connections Phone 4 [facility] Start: 04-03-2022 End: 07-22-2022 Social connection and isolation panel [facility] Do you belong to any clubs or organizations such as worship groups, unions, fraternal or athletic groups, or school groups? No [facility] Are you now , , , , never or living with a partner? Living with partner [facility] How often to you hav e a drink containing alcohol? Never [facility] How many standard dr inks containing alcohol do you have on a typical day? Patient does not drink [facility] Do you feel stress - tense, restless, nervous, or anxious, or unable to sleep at night because your mind is troubled all the time - these days [OSQ] Not at all [facility] (I/We) worried yazmin er (my/our) food would run out before (I/we) got money to buy more. Never true [facility] Start: 08-06-2022 Tobacco Comment Patient vapes nicotine no longer smoking cigarettes [facility] Start: 09-14-2016 Gender identity Identifies as female gender (finding) [facility] Work Phone: Start: 07-15-2020 Sexual orientation Heterosexual (finding) [facility] Has the [employer], [employer], or water company threatened to shut off services in your home in past 12Mo Yes [facility] How hard is it for y ou to pay for the very basics like food, housing, medical care, and heating Somewhat hard [facility] (I/We) worried yazmin er (my/our) food would run out before (I/we) got money to buy more. Sometimes true [facility] Start: 07-04-2015 Alcohol Alcohol [facility] Start: 07-04-2015 Drugs Drugs [facility] Start: 07-04-2015 Lives Lives [facility] Start: 07-04-2015 Tobacco Use Tobacco Use [facility] Functional Status Date Assessment Result Facility 10-21-2014 Are you deaf, or do you have serious difficulty hearing No 10/21/2014 3:27 PM Estefani Azul RN No [facility] 10-21-2014 Are you blind, or do you have serious difficulty seeing, even when wearing glasses No 10/21/2014 3:27 PM Estefani Azul RN No [facility] 10-21-2014 Do you have serious difficulty walking or climbing stairs No 10/21/2014 3:27 PM Estefani Azul, LAVELL No [facility] 10-21-2014 Do you have difficul ty dressing or bathing No 10/21/2014 3:27 PM Estefani Azul, LAVELL No [facility] 10-21-2014 Because of a physica l, mental, or emotional condition, do you have difficulty doing errands alone such as visiting a physician's office or shopping No 10/21/2014 3:27 PM Estefani Azul, RN No [facility] Mental Status Date Assessment Result Facility 10-21-2014 Because of a physica l, mental, or emotional condition, do you have serious difficulty concentrating, remembering, or making decisions No 10/21/2014 3:27 PM Estefani Azul, LAVELL No [facility] Clinical Notes 03-27-2015 to 10-01-2024 Telephone Encounter - Estefani Medina RN - 08/14/2024 1:42 PM EDTTelephone Encounter - Estefani Medina RN - 08/14/2024 1:42 PM EDTTelephone Encounter - Estefani Medina RN - 08/14/2024 9:07 AM EDT Note Date & Type Note Facility 10-01-2024 Radiology Diagnostic study note [facility] Imaging Services [address] [place] [address] Abdomen/Pelvis W IV Cont ONLY MR#: [id number] Acct: [id number] Name: GUNJAN THAO Rep #: [id number] : 1995 F 29 From: Fior Zimmerman MD PCP: Dr. Burt Eugene MD Status: REG E R Study:Abdomen/Pelvis W IV Cont ONLY Date of E xam: 10/01/24 Exam# [id number] Ordering Dr: Octavio May DO PROCEDURE: ABDOMEN/PELVIS W IV CONT ONLY 10/01/2024 REASON FOR EXAM: ABDOMINAL PAIN TECHNIQUE: ABDOMEN/PELVIS W IV CONT ONLY Coronal and Sagittal reconstruction series were provided. CONTRAST: 100 mL of Isovue 370 One or more dose reduction techniques were used (e.g., Automated exposure control, adjustment of the mA and/or kV according to patient size, use of iterative reconstruction technique. RADIATION DOSE SUMMARY: DLP: 1358 mGycm COMPARISON: Ultrasound from 09/04/2018 FINDINGS: Limited sections of the lung bases demonstrate no focal pulmonary mass or consolidations. The liver, spleen, pancreas, and both adrenal glands demonstrate no acute findings. The gallbladder is unremarkable. The stomach is unremarkable. The small bowel loops are not dilated. The appendix is normal. No colonic obstruction. There is no free air or significant free fluid. The kidneys are unremarkable. The urinary bladder is partially distended. The pelvic structures are intact. There is no solid pelvic mass. No significant lymphadenopathy. The aorta and IVC demonstrate no acute findings. Visualized osseous structures demonstrate no acute abnormality. CT/Abdomen/Pelvis W IV Cont ONLY IMPRESSION: No acute intracranial process. Reading Location: [facility] CC: Dr. Octavio May DO; Dr. Burt Eugene MD ~ Salvage Mechanic: Signed [facility] 08-14-2024 Telephone encounter Note Patient notified of results, verbalizes understanding of instructions. Colposcopy appointment scheduled. Estefani Medina RN [facility] 08-14-2024 Miscellaneous Notes Patient notified of results, verbalizes understanding of instructions. Colposcopy appointment scheduled. Estefani Medina RN Left message to call office. Estefani Medina RN Images from the original note were not included. Sherine Galvin APRN.MEAGN P Wstr Ob-Metal Burnisher Pool Please notify Gunjan L Thao - Pap ASCUS, HRHPV positive. Needs colposcopy with SW. Colposcopy ordered and placed on problem list. Sherine Galvin APRN.CNP documented in this encounter [facility] 08-14-2024 Telephone encounter Note Left message to call office. Estefani Medina RN [facility] 08-14-2024 Telephone encounter Note Images from the original note were not included. Sherine Galvin APRN.CNP P Wstr Ob-Metal Burnisher Pool Please notify Gunjan L Thao - Pap ASCUS, HRHPV positive. Needs colposcopy with SW. Colposcopy ordered and placed on problem list. Sherine Galvin APRN.CNP [facility] 07-27-2024 Note HNO ID: [id number] Author: SHERINE GALVIN APRN.FELLING BUCKING SUPERVISOR Service: ? Author Type: Nurse Practitioner Type: Progress Notes Filed: 07/27/2024 13:02 Note Text: Hotel Superintendent offered: Patient declines. Gunjan is a 29 year old who presents for an annual gynecologic exam without complaints. Menses: Menses every 28-30 days lasting 5-6 days. Period symptoms: Cramps; Mood change Contraception: none - happy if occurs. Previous was a surprise. HPV vaccine: Yes Last Pap: 07/26/2023 ASCUS HPV: HRHPV pos [place] 08/2023 benign History of abnormal pap: Yes 2015 ASCUS, HRHPV positive, 2016 ASCUS, HPV negative Last mammogram: 2012 abnormal, fibrocystic Sexually active: Yes Time with current partner: 10 years Pain with intercourse: No Postcoital bleeding: No Documentation from previous visit of 07/26/2023 was copied and pasted, documentation has been reviewed and edited as necessary for today's visit. OB History Gravida2 Para1 Term1 Preterm0 AB1 Living1 SAB1 IAB0 Ectopic0 Multiple0 Live Births1 Metal Burnisher History LMP: 07/10/2024 (Exact Date), Having periods Age at Menarche: 8 Age at First : Age at Menopause: Metal Burnisher History Comments: Sexual Activity: Yes; Male Contraception: Not used Menstrual Tracking History Flowsheet Row Office Visit from 07/27/2024 in OB/Gynecology Period Cycle (Days) 28 Period Duration (Days) 5 Menstrual Flow Moderate PAST MEDICAL HISTORY Diagnosis Date Abnormal Pap smear of cervix 08/15/2014 ASCUS Abnormal ultrasound of breast 05/01/2012 Amenorrhea 02/19/2011 Anxiety disorder 02/09/2012 Asthma ([facility]) 07/03/2012 Bipolar disorder ([facility]) 02/19/2011 Breast disorder fibrocystic breasts Depression 02/19/2011 Family history of Izaiah's disease 02/19/2011 Tex's disease 2023 HPV test positive 08/15/2014 Overweight(278.02) 02/19/2011 Palpitations 02/19/2011 Seizure (HCC) Seizures ([facility]) 02/19/2011 Shortness of breath 10/25/2012 Syncope 02/19/2011 PAST SURGICAL HISTORY Procedure Laterality Date DELIVERY ONLY 06/02/2015 Had extensive surgery following delivery on the incision site. PAST SURGICAL HISTORY OF tongue clip PAST SURGICAL HISTORY OF age 16 yr right breast biopsy- benign TONSILLECTOMY AND ADENOIDECTOMY FAMILY HISTORY Problem Relation Age of Onset Heart Mother other (pancreatitis) Father Hypothyroidism Brother Hypertension Brother Heart Maternal Grandmother Cancer Maternal Grandmother lung cancer Heart Maternal Grandfather Sleep Apnea Diabetes Paternal Grandmother No Known Problems Daughter SOCIAL HISTORY Social History Tobacco Use Smoking status: Former Current packs/day: 0.50 Types: Cigarettes Smokeless tobacco: Never Tobacco comments: Patient vapes nicotine no longer smoking cigarettes Vaping Use Vaping status: current everyday user Substances: Nicotine Substance Use Topics Alcohol use: No Drug use: No REVIEW OF SYSTEMS Abdomen: No abdominal pain, nausea, vomiting, diarrhea, or constipation. No bloating, early satiety, indigestion, or increased flatulence. Bladder: No dysuria, gross hematuria, urinary frequency, urinary urgency, or incontinence. Breast: No breast lumps, nipple d/c, overlying skin changes, redness or skin retraction. Allergies and current medication updated:Yes SENSITIVE EXAM: The sensitive examination was discussed with the Patient or Patient's Authorized Agricultural Service Worker. As applicable, any other physician, advance practice provider, medical student, or other health professional student that will be observing or involved in the sensitive examination for educational or training purposes was discussed with the Patient or Authorized Agricultural Service Worker. The Patient or Authorized Agricultural Service Worker has agreed to proceed with the sensitive examination. (Sensitive examination includes inspection and/or palpation of the breasts, pelvis, prostate and anorectal regions). EXAM: BP 110/77 Ht 5' 2.402 (1.59m) Wt 263 lb (119.3kg) LMP 07/10/2024 BMI 47.49 kg/(m2). GENERAL: pleasant, female in no apparent distress HEENT: Normocephalic, atraumatic, mucus membranes moist, and no lesions NECK: Supple, full range of motion, no adenopathy, and thyroid normal DERMATOLOGY: Normal, without lesions, non-icteric, and non-hirsute BREAST: soft, non-tender, symmetric, no dominant mass, normal nipple-areolar complex, no lymphadenopathy, and no nipple discharge CHEST: Normal inspiratory effort ABDOMEN: soft, non-tender, and no masses PELVIC: external genitalia normal, normal Bartholin's glands, urethra, Crab Orchard's glands, no vulvar lesions, no cervical lesions, good vaginal support, physiologic discharge present, normal appearing perineal body and perianal region BIMANUAL: uterus normal size, shape and consistency, no adnexal masses, and non-tender RECTOVAGINAL: deferred. NEURO: alert and oriented x3,exam grossly non-focal EXTREM (more content not included)... [facility] 07-27-2024 History of Presen t illness Narrative Hotel Superintendent offered: Patient declines. Gunjan is a 29 year old who presents for an annual gynecologic exam without complaints. Menses: Menses every 28-30 days lasting 5-6 days. Period symptoms: Cramps; Mood change Contraception: none - happy if occurs. Previous was a surprise. HPV vaccine: Yes Last Pap: 07/26/2023 ASCUS HPV: HRHPV pos [place] 08/2023 benign History of abnormal pap: Yes 2015 ASCUS, HRHPV positive, 2016 ASCUS, HPV negative Last mammogram: 2012 abnormal, fibrocystic Sexually active: Yes Time with current partner: 10 years Pain with intercourse: No Postcoital bleeding: No Documentation from previous visit of 07/26/2023 was copied and pasted, documentation has been reviewed and edited as necessary for today's visit. OB History Gravida2 Para1 Term1 Preterm0 AB1 Living1 SAB1 IAB0 Ectopic0 Multiple0 Live Births1 Metal Burnisher History LMP: 07/10/2024 (Exact Date), Having periods Age at Menarche: 8 Age at First : Age at Menopause: Metal Burnisher History Comments: Sexual Activity: Yes; Male Contraception: Not used Menstrual Tracking History Flowsheet Row Office Visit from 07/27/2024 in OB/Gynecology Period Cycle (Days) 28 Period Duration (Days) 5 Menstrual Flow Moderate PAST MEDICAL HISTORY Diagnosis Date Abnormal Pap smear of cervix 08/15/2014 ASCUS Abnormal ultrasound of breast 05/01/2012 Amenorrhea 02/19/2011 Anxiety disorder 02/09/2012 Asthma ([facility]) 07/03/2012 Bipolar disorder ([facility]) 02/19/2011 Breast disorder fibrocystic breasts Depression 02/19/2011 Family history of Izaiah's disease 02/19/2011 Tex's disease 2023 HPV test positive 08/15/2014 Overweight(278.02) 02/19/2011 Palpitations 02/19/2011 Seizure (HCC) Seizures (HCC) 02/19/2011 Shortness of breath 10/25/2012 Syncope 02/19/2011 PAST SURGICAL HISTORY Procedure Laterality Date DELIVERY ONLY 06/02/2015 Had extensive surgery following delivery on the incision site. PAST SURGICAL HISTORY OF tongue clip PAST SURGICAL HISTORY OF age 16 yr right breast biopsy- benign TONSILLECTOMY & ADENOIDECTOMY <AGE 10 FAMILY HISTORY Problem Relation Age of Onset Heart Mother other (pancreatitis) Father Hypothyroidism Brother Hypertension Brother Heart Maternal Grandmother Cancer Maternal Grandmother lung cancer Heart Maternal Grandfather Sleep Apnea Diabetes Paternal Grandmother No Known Problems Daughter SOCIAL HISTORY Social History Tobacco Use Smoking status: Former Current packs/day: 0.50 Types: Cigarettes Smokeless tobacco: Never Tobacco comments: Patient vapes nicotine no longer smoking cigarettes Vaping Use Vaping status: current everyday user Substances: Nicotine Substance Use Topics Alcohol use: No Drug use: No REVIEW OF SYSTEMS Abdomen: No abdominal pain, nausea, vomiting, diarrhea, or constipation. No bloating, early satiety, indigestion, or increased flatulence. Bladder: No dysuria, gross hematuria, urinary frequency, urinary urgency, or incontinence. Breast: No breast lumps, nipple d/c, overlying skin changes, redness or skin retraction. Allergies and current medication updated:Yes SENSITIVE EXAM: The sensitive examination was discussed with the Patient or Patient's Authorized Agricultural Service Worker. As applicable, any other physician, advance practice provider, medical student, or other health professional student that will be observing or involved in the sensitive examination for educational or training purposes was discussed with the Patient or Authorized Agricultural Service Worker. The Patient or Authorized Agricultural Service Worker has agreed to proceed with the sensitive examination. (Sensitive examination includes inspection and/or palpation of the breasts, pelvis, prostate and anorectal regions). EXAM: BP 110/77 Ht 5' 2.402 (1.59m) Wt 263 lb (119.3kg) LMP 07/10/2024 BMI 47.49 kg/(m^2). GENERAL: pleasant, female in no apparent distress HEENT: Normocephalic, atraumatic, mucus membranes moist, and no lesions NECK: Supple, full range of motion, no adenopathy, and thyroid normal DERMATOLOGY: Normal, without lesions, non-icteric, and non-hirsute BREAST: soft, non-tender, symmetric, no dominant mass, normal nipple-areolar complex, no lymphadenopathy, and no nipple discharge CHEST: Normal inspiratory effort ABDOMEN: soft, non-tender, and no masses PELVIC: external genitalia normal, normal Bartholin's glands, urethra, Crab Orchard's glands, no vulvar lesions, no cervical lesions, good vaginal support, physiologic discharge present, normal appearing perineal body and perianal region BIMANUAL: uterus normal size, shape and consistency, no adnexal masses, and non-tender RECTOVAGINAL: deferred. NEURO: alert and oriented x3,exam grossly non-focal EXTREMITIES: normal ASSESSMENT/PLAN: 1) Health maintenance: Pap done with HPV. Nutrition, exercise and routine health maintenance exams reviewed. Started bariatric process but became nervous when PCP told her that her thyroid would have to be closely monitored and also she needed to establish with a counselor due to anxiety/depression. HPV vaccine: completed series 2) Contraception: none. Contraceptive options reviewed and information provided. 3) STD screening: Declined STD check. 4) Follow up one year or sooner as needed Sherine Galvin APRN.FELLING BUCKING SUPERVISOR documented in this encounter [facility] 07-03-2024 Telephone encounter Note Prescription Refill Information The patient has been identified by name and date of : Yes Caregiver verified no other encounters exist for this prescription request: Yes Caregiver confirmed with patient/requestor that no other refills are due, in the near future, with this provider at this time: No The last office visit in the department: 03/06/24 Does the patient have a future office visit with this provider/department: No Requested Prescriptions Pending Prescriptions Disp Refills levothyroxine (LEVOXYL) 112 mcg tablet 30 tablet 5 Sig: Take 1 tablet by mouth once daily. Take on empty stomach. For thyroid. Janett Bach MA July 03, 2024 1:21 PM [facility] 07-03-2024 Miscellaneous Notes Prescription Refill Information The patient has been identified by name and date of : Yes Caregiver verified no other encounters exist for this prescription request: Yes Caregiver confirmed with patient/requestor that no other refills are due, in the near future, with this provider at this time: No The last office visit in the department: 03/06/24 Does the patient have a future office visit with this provider/department: No Requested Prescriptions Pending Prescriptions Disp Refills levothyroxine (LEVOXYL) 112 mcg tablet 30 tablet 5 Sig: Take 1 tablet by mouth once daily. Take on empty stomach. For thyroid. Janett Bach MA July 03, 2024 1:21 PM documented in this encounter [facility] 03-27-2024 History of Presen t illness Narrative Radiology Service Progress Note PATIENT NAME: Gunjan Thao DATE OF SERVICE: March 27, 2024 TIME: 10:48 AM PATIENT IDENTITY VERIFICATION COMPLETED USING TWO (2) IDENTIFIERS: Name and Date of confirmed by patient verbally. FALL SCREENING: Has the patient had 2 falls in the last year or 1 fall with injury or currently using an Ambulatory Assistive Device (Walker, Cane, Wheelchair, Crutches, etc.)? No PATIENT GENDER DATA: Female. status: : No status: NO. PATIENT RELEVANT IMPLANT DATA REVIEWED: Not Applicable PATIENT PRESENTS WITH AN IMPLANTABLE OR ATTACHED AQUATICS DIRECTOR: No RADIOLOGY DEPARTMENT: General X-ray: Exam(s) Completed: Upper Extremity X-Ray(s): Hand, right PERIPHERAL IV DATA: Not applicable SIGNED BY: RT Danna(Bianca) March 27, 2024 10:48 AM documented in this encounter [facility] 03-27-2024 Note HNO ID: [id number] Author: SUSIE ZAIDI RT(R) Service: Radiology Author Type: Technologist Type: Progress Notes Filed: 03/27/2024 10:52 Note Text: Radiology Service Progress Note PATIENT NAME: Gunjan Thao DATE OF SERVICE: March 27, 2024 TIME: 10:48 AM PATIENT IDENTITY VERIFICATION COMPLETED USING TWO (2) IDENTIFIERS: Name and Date of confirmed by patient verbally. FALL SCREENING: Has the patient had 2 falls in the last year or 1 fall with injury or currently using an Ambulatory Assistive Device (Walker, Cane, Wheelchair, Crutches, etc.)? No PATIENT GENDER DATA: Female. status: : No status: NO. PATIENT RELEVANT IMPLANT DATA REVIEWED: Not Applicable PATIENT PRESENTS WITH AN IMPLANTABLE OR ATTACHED AQUATICS DIRECTOR: No RADIOLOGY DEPARTMENT: General X-ray: Exam(s) Completed: Upper Extremity X-Ray(s): Hand, right PERIPHERAL IV DATA: Not applicable SIGNED BY: Susie Zaidi RT(R) March 27, 2024 10:48 AM [facility] 03-27-2024 Note HNO ID: [id number] Author: XIN CUNHA APRN.FELLING BUCKING SUPERVISOR Service: ? Author Type: Nurse Practitioner Type: Progress Notes Filed: 03/27/2024 11:20 Note Text: Subjective Patient came in with complaints of right pinky finger pain. Patient says it does go slightly down into the hand. Patient dropped a box of bird seed on it in a car. Patient can wiggle the finger says she is unable to bend the finger. Patient says it is throbbing and painful. Patient says this happened about an hour or so ago. Patient denies any other symptoms at this time. The history is provided by the patient. No technical services assistant was used. Review of Systems Constitutional: Negative. Skin: Negative. Objective Physical Exam Constitutional: Appearance: Normal appearance. Pulmonary: Effort: Pulmonary effort is normal. Musculoskeletal: Hands: Comments: Area shipman small skin tear. Purple area shipman where patient is tender when palpated. No bruising noted at this time. Range of motion is within normal limits. Circulation and sensation intact. Strength seems to be decreased unable to determine if associated to pain or injury itself. Able to push against my hand with finger. Neurological: Mental Status: She is alert. 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 PAST SURGICAL HISTORY OF tongue clip PAST SURGICAL HISTORY OF age 16 yr right breast biopsy- benign TONSILLECTOMY AND ADENOIDECTOMY ALLERGIES Lamotrigine, Dust Mites, Erythromycin, Red Dye, Seasonal Allergies, and Sulfa (Sulfonamide Antibiotics) MEDICATIONS levothyroxine (LEVOXYL) 112 mcg tablet Take 1 tablet by mouth once daily. Take on empty stomach. For thyroid. benzonatate (TESSALON PERLE) 100 mg capsule Take 1 capsule by mouth three times a day as needed. (Patient not taking: Reported on 03/27/2024) LIDOCAINE VISCOUS 2 % solution Take 5-10 mL by mouth four times a day as needed. (Patient not taking: Reported on 03/27/2024) vit/iron fum/folic ac ( 1 + 1 ORAL) Take by mouth. (Patient not taking: Reported on 09/01/2023) FAMILY HISTORY Problem Relation Age of Onset Heart Mother other (pancreatitis) Father Hypothyroidism Brother Hypertension Brother Heart Maternal Grandmother Cancer Maternal Grandmother lung cancer Heart Maternal Grandfather Sleep Apnea Diabetes Paternal Grandmother No Known Problems Daughter Social History Tobacco Use Smoking status: Former Current packs/day: 0.50 Types: Cigarettes Smokeless tobacco: Never Tobacco comments: Patient vapes nicotine no longer smoking cigarettes Vaping Use Vaping status: current everyday user Substances: Nicotine Substance Use Topics Alcohol use: No Drug use: No ASSESSMENT/PLAN: 1. Pain - ICD9: 780.96, ICD10: R52 - XR HAND GENERAL 3V PA/LAT/OBL RIGHT * * * * Physician Interpretation * * * * EXAM TITLE: X-RAY HAND 3V PA/LAT/OBLIQUE EXAM DATE/TIME: 03/27/2024 10:52 AM COMPARISON: None. CLINICAL INDICATION/HISTORY: Pain. TECHNIQUE: PA, lateral and oblique views of the right hand are presented. FINDINGS: No acute fractures or subluxations are noted. The joint spaces are grossly maintained. No convincing evidence of distal radioulnar instability. The mineralization of the bones is normal. There is no significant soft tissue swelling. IMPRESSION IMPRESSION: No acute radiographic abnormalities seen in the right hand. Salvage Mechanic: ANGELITA Transcribe Date/Time: Mar 27 2024 10:52A Dictated by : KERRIE BOSTON MD Patient was educated to rest ice elevate alternate Tylenol Motrin. Was set up with a follow-up due to pain. Patient was instructed she should at least give it a week or so. Patient agreeable to care plan. Xin Cunha APRN.[facility] 03-27-2024 History of Presen t illness Narrative Images from the original note were not included. Subjective Patient came in with complaints of right pinky finger pain. Patient says it does go slightly down into the hand. Patient dropped a box of bird seed on it in a car. Patient can wiggle the finger says she is unable to bend the finger. Patient says it is throbbing and painful. Patient says this happened about an hour or so ago. Patient denies any other symptoms at this time. The history is provided by the patient. No technical services assistant was used. Review of Systems Constitutional: Negative. Skin: Negative. Objective Physical Exam Constitutional: Appearance: Normal appearance. Pulmonary: Effort: Pulmonary effort is normal. Musculoskeletal: Hands: Comments: Area shipman small skin tear. Purple area shipman where patient is tender when palpated. No bruising noted at this time. Range of motion is within normal limits. Circulation and sensation intact. Strength seems to be decreased unable to determine if associated to pain or injury itself. Able to push against my hand with finger. Neurological: Mental Status: She is alert. 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 PAST SURGICAL HISTORY OF tongue clip PAST SURGICAL HISTORY OF age 16 yr right breast biopsy- benign TONSILLECTOMY & ADENOIDECTOMY <AGE 10 ALLERGIES Lamotrigine, Dust Mites, Erythromycin, Red Dye, Seasonal Allergies, and Sulfa (Sulfonamide Antibiotics) MEDICATIONS levothyroxine (LEVOXYL) 112 mcg tablet Take 1 tablet by mouth once daily. Take on empty stomach. For thyroid. benzonatate (TESSALON PERLE) 100 mg capsule Take 1 capsule by mouth three times a day as needed. (Patient not taking: Reported on 03/27/2024) LIDOCAINE VISCOUS 2 % solution Take 5-10 mL by mouth four times a day as needed. (Patient not taking: Reported on 03/27/2024) vit/iron fum/folic ac ( 1 + 1 ORAL) Take by mouth. (Patient not taking: Reported on 09/01/2023) FAMILY HISTORY Problem Relation Age of Onset Heart Mother other (pancreatitis) Father Hypothyroidism Brother Hypertension Brother Heart Maternal Grandmother Cancer Maternal Grandmother lung cancer Heart Maternal Grandfather Sleep Apnea Diabetes Paternal Grandmother No Known Problems Daughter Social History Tobacco Use Smoking status: Former Current packs/day: 0.50 Types: Cigarettes Smokeless tobacco: Never Tobacco comments: Patient vapes nicotine no longer smoking cigarettes Vaping Use Vaping status: current everyday user Substances: Nicotine Substance Use Topics Alcohol use: No Drug use: No ASSESSMENT/PLAN: 1. Pain - ICD9: 780.96, ICD10: R52 - XR HAND GENERAL 3V PA/LAT/OBL RIGHT * * * * Physician Interpretation * * * * EXAM TITLE: X-RAY HAND 3V PA/LAT/OBLIQUE EXAM DATE/TIME: 03/27/2024 10:52 AM COMPARISON: None. CLINICAL INDICATION/HISTORY: Pain. TECHNIQUE: PA, lateral and oblique views of the right hand are presented. FINDINGS: No acute fractures or subluxations are noted. The joint spaces are grossly maintained. No convincing evidence of distal radioulnar instability. The mineralization of the bones is normal. There is no significant soft tissue swelling. IMPRESSION IMPRESSION: No acute radiographic abnormalities seen in the right hand. Salvage Mechanic: ANGELITA Transcribe Date/Time: Mar 27 2024 10:52A Dictated by : KERRIE BOSTON MD Patient was educated to rest ice elevate alternate Tylenol Motrin. Was set up with a follow-up due to pain. Patient was instructed she should at least give it a week or so. Patient agreeable to care plan. Xin Cunha APRN.[employer] SUPERVISOR documented in this encounter [facility] 03-12-2024 Telephone encounter Note Patient was notified of provider message and verbalizes understanding. Sravani Grace MA March 12, 2024 4:26 PM [facility] 03-12-2024 Miscellaneous Notes Patient was notified of provider message and verbalizes understanding. Sravani Grace MA March 12, 2024 4:26 PM Ok. Recheck cbc in one month to make sure if back to normal. Call if symptoms worsen at all or if not better in one to two weeks Pt notified. She is feeling almost 100% better. Janett Bach MA White count is improving. How feeling? Let me know documented in this encounter [facility] 03-12-2024 Telephone encounter Note Ok. Recheck cbc in one month to make sure if back to normal. Call if symptoms worsen at all or if not better in one to two weeks [facility] 03-12-2024 Telephone encounter Note Pt notified. She is feeling almost 100% better. Janett Bach MA [facility] 03-12-2024 Telephone encounter Note White count is improving. How feeling? Let me know [facility] 03-07-2024 Telephone encounter Note Pt called and is notified of providers results and instructions. Pt voices understanding. Ara Bertrand RN [facility] 03-07-2024 Miscellaneous Notes Pt called and is notified of providers results and instructions. Pt voices understanding. Ara Bertrand RN Willacy is negative. Her white count is up which is likely from the infection. Stay on doxycycline. If any worsening fever or symptoms, needs seen again. Recheck cbc end of this week documented in this encounter [facility] 03-07-2024 Telephone encounter Note Willacy is negative. Her white count is up which is likely from the infection. Stay on doxycycline. If any worsening fever or symptoms, needs seen again. Recheck cbc end of this week [facility] 03-06-2024 Note HNO ID: [id number] Author: BURT EUGENE MD Service: ? Author Type: Physician Type: Progress Notes Filed: 03/06/2024 14:11 Note Text: Patient presents with: Sore Throat: X 13 days HPI: Patient presents today for office visit for follow up. Started beg of feb. Had sore throat. Some cough. Left ear is uncomfortable. No shortness of breath. No nausea or vomiting or diarrhrea. Main issue is her throat. Still urinating. Is uncomfortable to swallow but able to swallow. Has been tested twice for strep and then also covid. Her daughter was ill as well. She ended up being treated eventually for a sinus infection. Was negative for strep. MEDICATIONS: Current Outpatient Medications Medication Sig levothyroxine (LEVOXYL) 112 mcg tablet Take 1 tablet by mouth once daily. Take on empty stomach. For thyroid. LIDOCAINE VISCOUS 2 % solution Take 5-10 mL by mouth four times a day as needed. vit/iron fum/folic ac ( 1 + 1 ORAL) Take by mouth. (Patient not taking: Reported on 09/01/2023) No current facility-administered medications for this visit. ALLERGIES: ALLERGIES Allergen Reactions Lamotrigine Hives Dust Mites Other: See Comments Skin test positive in office Erythromycin Hives Red Dye Hives Seasonal Allergies Other: See Comments Tested positive for COCKROACH in office Sulfa (Sulfonamide * Rash PAST MEDICAL HISTORY Diagnosis Date Abnormal Pap smear of cervix 08/15/2014 ASCUS Abnormal ultrasound of breast 05/01/2012 Amenorrhea 02/19/2011 Anxiety disorder 02/09/2012 Asthma 07/03/2012 Bipolar disorder (HCC) 02/19/2011 Breast disorder fibrocystic breasts Depression 02/19/2011 Family history of Springdale's disease 02/19/2011 Tex's disease 2023 HPV test positive 08/15/2014 Overweight(278.02) 02/19/2011 Palpitations 02/19/2011 Seizure (HCC) Seizures (HCC) 02/19/2011 Shortness of breath 10/25/2012 Syncope 02/19/2011 PAST SURGICAL HISTORY Procedure Laterality Date DELIVERY ONLY 06/02/2015 Had extensive surgery following delivery on the incision site. PAST SURGICAL HISTORY OF tongue clip PAST SURGICAL HISTORY OF age 16 yr right breast biopsy- benign TONSILLECTOMY AND ADENOIDECTOMY FAMILY HISTORY Problem Relation Age of Onset Heart Mother other (pancreatitis) Father Hypothyroidism Brother Hypertension Brother Heart Maternal Grandmother Cancer Maternal Grandmother lung cancer Heart Maternal Grandfather Sleep Apnea Diabetes Paternal Grandmother No Known Problems Daughter Social History Tobacco Use Smoking status: Former Current packs/day: 0.50 Types: Cigarettes Smokeless tobacco: Never Tobacco comments: Patient vapes nicotine no longer smoking cigarettes Vaping Use Vaping status: current everyday user Substances: Nicotine Substance Use Topics Alcohol use: No Drug use: No Reviewed current medications, allergies, past medical history, surgical history, family history and social history today. REVIEW OF SYSTEMS All other reviewed and negative other than HPI. VITALS: BP 128/80 Pulse 89 Temp 36.6 ?C (97.9 ?F) (Temporal) Resp 16 Wt 126.6 kg (279 lb) LMP 02/23/2024 (Approximate) SpO2 99% BMI 47.89 kg/m? Last 4 Encounter Wt Readings: Date: Wt: 03/06/2024 126.6 kg (279 lb) 02/28/2024 126.2 kg (278 lb 3.5 oz) 02/26/2024 125.3 kg (276 lb 3.8 oz) 09/01/2023 127 kg (280 lb) PHYSICAL EXAMINATION: General appearance: Well appearing, alert, in no acute distress, well-hydrated, well nourished. Skin: Skin color, texture, turgor normal, no suspicious rashes or lesions Head: Normocephalic, no masses, lesions, tenderness or abnormalities Eyes: Anicteric sclera. Pupils are equally round and reactive to light. Extraocular movements are intact. Ears: External ears normal, canals clear Nose/Sinuses: Nares normal, septum midline, mucosa normal, no drainage or sinus tenderness Oropharynx: Lips, mucosa, and tongue normal, teeth and gums normal, oropharynx normal Neck: Supple, no adenopathy; Lungs: Lungs clear to auscultation. No wheezing, rhonchi, rales Heart: RRR without murmur, gallop, or rubs. No ectopy Abdomen: Normal abdominal exam, Abdomen soft, non-tender. Bowel sounds normal. No masses, organomegaly Extremities: No deformities, edema, skin discoloration, clubbing or cyanosis. Good capillary refill. ASSESSMENT/PLAN: 1. Pharyngitis, unspecified etiology - ICD9: 462, ICD10: J02.9 (primary diagnosis) - Discussed risks and benefits of new medication with the patient. Advised them to call if any side effects or questions. Red flags for re-assessment reviewed with patient in detail. Call if symptoms worsen at all or if not better in one to two weeks Reviewed diagnosis and treatment options in detail. Questions were answered. Patient expressed understanding of treatment plan. - COMPLETE BLOOD COUNT AND DIFFERENTIAL - MONOTEST, INFECTIOUS MONO (more content not included)... [facility] 03-06-2024 History of Presen t illness Narrative Patient presents with: Sore Throat: X 13 days HPI: Patient presents today for office visit for follow up. Started beg of feb. Had sore throat. Some cough. Left ear is uncomfortable. No shortness of breath. No nausea or vomiting or diarrhrea. Main issue is her throat. Still urinating. Is uncomfortable to swallow but able to swallow. Has been tested twice for strep and then also covid. Her daughter was ill as well. She ended up being treated eventually for a sinus infection. Was negative for strep. MEDICATIONS: Current Outpatient Medications Medication Sig levothyroxine (LEVOXYL) 112 mcg tablet Take 1 tablet by mouth once daily. Take on empty stomach. For thyroid. LIDOCAINE VISCOUS 2 % solution Take 5-10 mL by mouth four times a day as needed. vit/iron fum/folic ac ( 1 + 1 ORAL) Take by mouth. (Patient not taking: Reported on 09/01/2023) No current facility-administered medications for this visit. ALLERGIES: ALLERGIES Allergen Reactions Lamotrigine Hives Dust Mites Other: See Comments Skin test positive in office Erythromycin Hives Red Dye Hives Seasonal Allergies Other: See Comments Tested positive for COCKROACH in office Sulfa (Sulfonamide * Rash PAST MEDICAL HISTORY Diagnosis Date Abnormal Pap smear of cervix 08/15/2014 ASCUS Abnormal ultrasound of breast 05/01/2012 Amenorrhea 02/19/2011 Anxiety disorder 02/09/2012 Asthma 07/03/2012 Bipolar disorder (HCC) 02/19/2011 Breast disorder fibrocystic breasts Depression 02/19/2011 Family history of Springdale's disease 02/19/2011 Tex's disease 2023 HPV test positive 08/15/2014 Overweight(278.02) 02/19/2011 Palpitations 02/19/2011 Seizure (HCC) Seizures (HCC) 02/19/2011 Shortness of breath 10/25/2012 Syncope 02/19/2011 PAST SURGICAL HISTORY Procedure Laterality Date DELIVERY ONLY 06/02/2015 Had extensive surgery following delivery on the incision site. PAST SURGICAL HISTORY OF tongue clip PAST SURGICAL HISTORY OF age 16 yr right breast biopsy- benign TONSILLECTOMY & ADENOIDECTOMY <AGE 10 FAMILY HISTORY Problem Relation Age of Onset Heart Mother other (pancreatitis) Father Hypothyroidism Brother Hypertension Brother Heart Maternal Grandmother Cancer Maternal Grandmother lung cancer Heart Maternal Grandfather Sleep Apnea Diabetes Paternal Grandmother No Known Problems Daughter Social History Tobacco Use Smoking status: Former Current packs/day: 0.50 Types: Cigarettes Smokeless tobacco: Never Tobacco comments: Patient vapes nicotine no longer smoking cigarettes Vaping Use Vaping status: current everyday user Substances: Nicotine Substance Use Topics Alcohol use: No Drug use: No Reviewed current medications, allergies, past medical history, surgical history, family history and social history today. REVIEW OF SYSTEMS All other reviewed and negative other than HPI. VITALS: BP 128/80 Pulse 89 Temp 36.6 C (97.9 F) (Temporal) Resp 16 Wt 126.6 kg (279 lb) LMP 02/23/2024 (Approximate) SpO2 99% BMI 47.89 kg/m Last 4 Encounter Wt Readings: Date: Wt: 03/06/2024 126.6 kg (279 lb) 02/28/2024 126.2 kg (278 lb 3.5 oz) 02/26/2024 125.3 kg (276 lb 3.8 oz) 09/01/2023 127 kg (280 lb) PHYSICAL EXAMINATION: General appearance: Well appearing, alert, in no acute distress, well-hydrated, well nourished. Skin: Skin color, texture, turgor normal, no suspicious rashes or lesions Head: Normocephalic, no masses, lesions, tenderness or abnormalities Eyes: Anicteric sclera. Pupils are equally round and reactive to light. Extraocular movements are intact. Ears: External ears normal, canals clear Nose/Sinuses: Nares normal, septum midline, mucosa normal, no drainage or sinus tenderness Oropharynx: Lips, mucosa, and tongue normal, teeth and gums normal, oropharynx normal Neck: Supple, no adenopathy; Lungs: Lungs clear to auscultation. No wheezing, rhonchi, rales Heart: RRR without murmur, gallop, or rubs. No ectopy Abdomen: Normal abdominal exam, Abdomen soft, non-tender. Bowel sounds normal. No masses, organomegaly Extremities: No deformities, edema, skin discoloration, clubbing or cyanosis. Good capillary refill. ASSESSMENT/PLAN: 1. Pharyngitis, unspecified etiology - ICD9: 462, ICD10: J02.9 (primary diagnosis) - Discussed risks and benefits of new medication with the patient. Advised them to call if any side effects or questions. Red flags for re-assessment reviewed with patient in detail. Call if symptoms worsen at all or if not better in one to two weeks Reviewed diagnosis and treatment options in detail. Questions were answered. Patient expressed understanding of treatment plan. - COMPLETE BLOOD COUNT AND DIFFERENTIAL - MONOTEST, INFECTIOUS MONO - DOXYCYCLINE MONOHYDRATE 100 MG TABLET - BENZONATATE 100 MG CAPSULE 2. Sinobronchitis - ICD9: 473.9, 490, ICD10: J32.9, J40 - Discussed risks and benefits of new medication with the patient. Advised them to call if any side effects or questions. Red flags for re-assessment reviewed with patient in detail. Call if symptoms worsen at all or if not better in one to two weeks Reviewed diagnosis and treatment options in detail. Questions were answered. Patient expressed understanding of treatment plan. - COMPLETE BLOOD COUNT AND DIFFERENTIAL - MONOTEST, INFECTIOUS MONO - DOXYCYCLINE MONOHYDRATE 100 MG TABLET - BENZONATATE 100 MG CAPSULE Burt Eugene MD documented in this encounter [facility] 02-28-2024 Note HNO ID: [id number] Author: CRYSTAL LIM APRN.FELLING BUCK[employer] SUPERVISOR Service: ? Author Type: Nurse Practitioner Type: Progress Notes Filed: 02/28/2024 15:27 Note Text: Subjective HPI HPI Gunjan Thao is a 28 year old female who presents today for CC of st, cough. This started 5 days ago. Has tried otc medication for relief. Symptoms are worsened by nothing. Vapes. Denies possibility of being . 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 PAST SURGICAL HISTORY OF tongue clip PAST SURGICAL HISTORY OF age 16 yr right breast biopsy- benign TONSILLECTOMY AND ADENOIDECTOMY ALLERGIES Lamotrigine, Dust Mites, Erythromycin, Red Dye, Seasonal Allergies, and Sulfa (Sulfonamide Antibiotics) MEDICATIONS levothyroxine (LEVOXYL) 112 mcg tablet Take 1 tablet by mouth once daily. Take on empty stomach. For thyroid. predniSONE (DELTASONE) 20 mg tablet Take 2 tablets by mouth once daily for 5 days. LIDOCAINE VISCOUS 2 % solution Take 5-10 mL by mouth four times a day as needed. vit/iron fum/folic ac ( 1 + 1 ORAL) Take by mouth. (Patient not taking: Reported on 09/01/2023) FAMILY HISTORY Problem Relation Age of Onset Heart Mother other (pancreatitis) Father Hypothyroidism Brother Hypertension Brother Heart Maternal Grandmother Cancer Maternal Grandmother lung cancer Heart Maternal Grandfather Sleep Apnea Diabetes Paternal Grandmother No Known Problems Daughter Social History Tobacco Use Smoking status: Former Current packs/day: 0.50 Types: Cigarettes Smokeless tobacco: Never Tobacco comments: Patient vapes nicotine no longer smoking cigarettes Vaping Use Vaping status: current everyday user Substances: Nicotine Substance Use Topics Alcohol use: No Drug use: No Review of Systems Constitutional: Negative for fever. HENT: Positive for sore throat. Negative for congestion, ear pain and nosebleeds. Respiratory: Positive for cough (improving). Negative for shortness of breath and wheezing. Musculoskeletal: Negative for neck pain. Skin: Negative for itching and rash. Objective Physical Exam Constitutional: General: She is not in acute distress. Appearance: She is not toxic-appearing or diaphoretic. HENT: Head: Normocephalic and atraumatic. Right Ear: Hearing, tympanic membrane, ear canal and external ear normal. Left Ear: Hearing, tympanic membrane, ear canal and external ear normal. Nose: Nose normal. Mouth/Throat: Lips: [place]. Mouth: Mucous membranes are moist. Pharynx: Uvula midline. Posterior oropharyngeal erythema present. No pharyngeal swelling, oropharyngeal exudate or uvula swelling. Eyes: General: Lids are normal. No scleral icterus. Right eye: No discharge. Left eye: No discharge. Conjunctiva/sclera: Conjunctivae normal. Pupils: Pupils are equal, round, and reactive to light. Neck: Trachea: Trachea normal. Cardiovascular: Rate and Rhythm: Normal rate and regular rhythm. Heart sounds: Normal heart sounds. Pulmonary: Effort: Pulmonary effort is normal. Breath sounds: Normal breath sounds. Musculoskeletal: Cervical back: Normal range of motion and neck supple. Lymphadenopathy: Cervical: No cervical adenopathy. Right cervical: No superficial cervical adenopathy. Left cervical: No superficial cervical adenopathy. Skin: Findings: No rash. Neurological: Mental Status: She is alert and oriented to person, place, and time. ASSESSMENT/PLAN: 1. Sore throat - ICD9: 462, ICD10: J02.9 - suspect viral - Group A strep molecular testing negative - Discussed supportive care treatment with fluids, rest and analgesia. - The patient should follow up in 3-5 days if symptoms persist or worsen - STREP A MOLECULAR (POC) - PREDNISONE 20 MG TABLET - LIDOCAINE HCL 2 % MUCOSAL SOLUTION Crystal Lim APRN.[facility] 02-28-2024 History of Presen t illness Narrative Subjective HPI HPI Gunjan Thao is a 28 year old female who presents today for CC of st, cough. This started 5 days ago. Has tried otc medication for relief. Symptoms are worsened by nothing. Vapes. Denies possibility of being . 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 PAST SURGICAL HISTORY OF tongue clip PAST SURGICAL HISTORY OF age 16 yr right breast biopsy- benign TONSILLECTOMY & ADENOIDECTOMY <AGE 10 ALLERGIES Lamotrigine, Dust Mites, Erythromycin, Red Dye, Seasonal Allergies, and Sulfa (Sulfonamide Antibiotics) MEDICATIONS levothyroxine (LEVOXYL) 112 mcg tablet Take 1 tablet by mouth once daily. Take on empty stomach. For thyroid. predniSONE (DELTASONE) 20 mg tablet Take 2 tablets by mouth once daily for 5 days. LIDOCAINE VISCOUS 2 % solution Take 5-10 mL by mouth four times a day as needed. vit/iron fum/folic ac ( 1 + 1 ORAL) Take by mouth. (Patient not taking: Reported on 09/01/2023) FAMILY HISTORY Problem Relation Age of Onset Heart Mother other (pancreatitis) Father Hypothyroidism Brother Hypertension Brother Heart Maternal Grandmother Cancer Maternal Grandmother lung cancer Heart Maternal Grandfather Sleep Apnea Diabetes Paternal Grandmother No Known Problems Daughter Social History Tobacco Use Smoking status: Former Current packs/day: 0.50 Types: Cigarettes Smokeless tobacco: Never Tobacco comments: Patient vapes nicotine no longer smoking cigarettes Vaping Use Vaping status: current everyday user Substances: Nicotine Substance Use Topics Alcohol use: No Drug use: No Review of Systems Constitutional: Negative for fever. HENT: Positive for sore throat. Negative for congestion, ear pain and nosebleeds. Respiratory: Positive for cough (improving). Negative for shortness of breath and wheezing. Musculoskeletal: Negative for neck pain. Skin: Negative for itching and rash. Objective Physical Exam Constitutional: General: She is not in acute distress. Appearance: She is not toxic-appearing or diaphoretic. HENT: Head: Normocephalic and atraumatic. Right Ear: Hearing, tympanic membrane, ear canal and external ear normal. Left Ear: Hearing, tympanic membrane, ear canal and external ear normal. Nose: Nose normal. Mouth/Throat: Lips: [place]. Mouth: Mucous membranes are moist. Pharynx: Uvula midline. Posterior oropharyngeal erythema present. No pharyngeal swelling, oropharyngeal exudate or uvula swelling. Eyes: General: Lids are normal. No scleral icterus. Right eye: No discharge. Left eye: No discharge. Conjunctiva/sclera: Conjunctivae normal. Pupils: Pupils are equal, round, and reactive to light. Neck: Trachea: Trachea normal. Cardiovascular: Rate and Rhythm: Normal rate and regular rhythm. Heart sounds: Normal heart sounds. Pulmonary: Effort: Pulmonary effort is normal. Breath sounds: Normal breath sounds. Musculoskeletal: Cervical back: Normal range of motion and neck supple. Lymphadenopathy: Cervical: No cervical adenopathy. Right cervical: No superficial cervical adenopathy. Left cervical: No superficial cervical adenopathy. Skin: Findings: No rash. Neurological: Mental Status: She is alert and oriented to person, place, and time. ASSESSMENT/PLAN: 1. Sore throat - ICD9: 462, ICD10: J02.9 - suspect viral - Group A strep molecular testing negative - Discussed supportive care treatment with fluids, rest and analgesia. - The patient should follow up in 3-5 days if symptoms persist or worsen - STREP A MOLECULAR (POC) - PREDNISONE 20 MG TABLET - LIDOCAINE HCL 2 % MUCOSAL SOLUTION Crystal Lim APRN.FELLING BUCKING SUPERVISOR documented in this encounter [facility] 02-26-2024 Note HNO ID: [id number] Author: GUNJAN GREENE APRN.FELLING BUCKING SUPERVISOR Service: ? Author Type: Nurse Practitioner Type: Progress Notes Filed: 02/26/2024 11:46 Note Text: This note was created using NoteWriter. Subjective Gunjan Thao is a 28 year old female. 28 year old female with PMH asthma, seizures, ASCUS, and anxiety presents for illness. Acute onset 3 days ago +sore throat +lymph node +cough, wet in morning +productive sputum +body aches Denies N/V?D Denies fever or chills Denies eye or ear complaints Has used Dayquil +vapes Denies inability to handle secretions. Denies muffled voice. The history is provided by the patient. No technical services assistant was used. Sore Throat This is a new problem. The current episode started in the past 7 days. The problem has been unchanged. Neither side of throat is experiencing more pain than the other. There has been no fever. The pain is at a severity of 7/10. The pain is moderate. Associated symptoms include congestion, coughing, headaches and swollen glands. Pertinent negatives include no abdominal pain, diarrhea, drooling, ear discharge, ear pain, hoarse voice, plugged ear sensation, neck pain, shortness of breath, stridor, trouble swallowing or vomiting. She has had no exposure to strep or mono. Treatments tried: Dayquil. The treatment provided no relief. 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 PAST SURGICAL HISTORY OF tongue clip PAST SURGICAL HISTORY OF age 16 yr right breast biopsy- benign TONSILLECTOMY AND ADENOIDECTOMY ALLERGIES Lamotrigine, Dust Mites, Erythromycin, Red Dye, Seasonal Allergies, and Sulfa (Sulfonamide Antibiotics) MEDICATIONS levothyroxine (LEVOXYL) 112 mcg tablet Take 1 tablet by mouth once daily. Take on empty stomach. For thyroid. vit/iron fum/folic ac ( 1 + 1 ORAL) Take by mouth. (Patient not taking: Reported on 09/01/2023) FAMILY HISTORY Problem Relation Age of Onset Heart Mother other (pancreatitis) Father Hypothyroidism Brother Hypertension Brother Heart Maternal Grandmother Cancer Maternal Grandmother lung cancer Heart Maternal Grandfather Sleep Apnea Diabetes Paternal Grandmother No Known Problems Daughter Social History Tobacco Use Smoking status: Former Current packs/day: 0.50 Types: Cigarettes Smokeless tobacco: Never Tobacco comments: Patient vapes nicotine no longer smoking cigarettes Vaping Use Vaping status: current everyday user Substances: Nicotine Substance Use Topics Alcohol use: No Drug use: No Review of Systems Constitutional: Negative for chills, diaphoresis, fatigue and fever. HENT: Positive for congestion, rhinorrhea and sore throat. Negative for drooling, ear discharge, ear pain, hoarse voice and trouble swallowing. Eyes: Negative for pain, discharge, redness and itching. Respiratory: Positive for cough. Negative for shortness of breath and stridor. Cardiovascular: Negative for chest pain, palpitations and leg swelling. Gastrointestinal: Negative for abdominal pain, diarrhea and vomiting. Musculoskeletal: Negative for arthralgias, back pain, gait problem and neck pain. Skin: Negative for color change, pallor, rash and wound. Allergic/Immunologic: Positive for environmental allergies and food allergies. Negative for immunocompromised state. Neurological: Positive for headaches. Hematological: Negative for adenopathy. Does not bruise/bleed easily. Psychiatric/Behavioral: Negative for agitation and behavioral problems. Objective BP 153/94 Pulse 83 Temp 36.8 ?C (98.3 ?F) (Left Tympanic) Resp 16 Wt 125.3 kg (276 lb 3.8 oz) LMP 02/23/2024 (Approximate) SpO2 97% BMI 47.42 kg/m? Physical Exam Vitals and nursing note reviewed. Constitutional: General: She is not in acute distress. Appearance: Normal appearance. She is normal weight. She is not ill-appearing, toxic-appearing or diaphoretic. HENT: Head: Normocephalic and atraumatic. Right Ear: Ear canal and external ear normal. Left Ear: Ear canal and external ear normal. Nose: Congestion present. No rhinorrhea. Mouth/Throat: Mouth: Mucous membranes are moist. Pharynx: Posterior oropharyngeal erythema present. No oropharyngeal exudate. Eyes: General: Right eye: No discharge. (more content not included)... [facility] 02-26-2024 History of Presen t illness Narrative This note was created using [employer]. Subjective Gunjan Thao is a 28 year old female. 28 year old female with PMH asthma, seizures, ASCUS, and anxiety presents for illness. Acute onset 3 days ago +sore throat +lymph node +cough, wet in morning +productive sputum +body aches Denies N/V?D Denies fever or chills Denies eye or ear complaints Has used Dayquil +vapes Denies inability to handle secretions. Denies muffled voice. The history is provided by the patient. No technical services assistant was used. Sore Throat This is a new problem. The current episode started in the past 7 days. The problem has been unchanged. Neither side of throat is experiencing more pain than the other. There has been no fever. The pain is at a severity of 7/10. The pain is moderate. Associated symptoms include congestion, coughing, headaches and swollen glands. Pertinent negatives include no abdominal pain, diarrhea, drooling, ear discharge, ear pain, hoarse voice, plugged ear sensation, neck pain, shortness of breath, stridor, trouble swallowing or vomiting. She has had no exposure to strep or mono. Treatments tried: Dayquil. The treatment provided no relief. 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 PAST SURGICAL HISTORY OF tongue clip PAST SURGICAL HISTORY OF age 16 yr right breast biopsy- benign TONSILLECTOMY & ADENOIDECTOMY <AGE 10 ALLERGIES Lamotrigine, Dust Mites, Erythromycin, Red Dye, Seasonal Allergies, and Sulfa (Sulfonamide Antibiotics) MEDICATIONS levothyroxine (LEVOXYL) 112 mcg tablet Take 1 tablet by mouth once daily. Take on empty stomach. For thyroid. vit/iron fum/folic ac ( 1 + 1 ORAL) Take by mouth. (Patient not taking: Reported on 09/01/2023) FAMILY HISTORY Problem Relation Age of Onset Heart Mother other (pancreatitis) Father Hypothyroidism Brother Hypertension Brother Heart Maternal Grandmother Cancer Maternal Grandmother lung cancer Heart Maternal Grandfather Sleep Apnea Diabetes Paternal Grandmother No Known Problems Daughter Social History Tobacco Use Smoking status: Former Current packs/day: 0.50 Types: Cigarettes Smokeless tobacco: Never Tobacco comments: Patient vapes nicotine no longer smoking cigarettes Vaping Use Vaping status: current everyday user Substances: Nicotine Substance Use Topics Alcohol use: No Drug use: No Review of Systems Constitutional: Negative for chills, diaphoresis, fatigue and fever. HENT: Positive for congestion, rhinorrhea and sore throat. Negative for drooling, ear discharge, ear pain, hoarse voice and trouble swallowing. Eyes: Negative for pain, discharge, redness and itching. Respiratory: Positive for cough. Negative for shortness of breath and stridor. Cardiovascular: Negative for chest pain, palpitations and leg swelling. Gastrointestinal: Negative for abdominal pain, diarrhea and vomiting. Musculoskeletal: Negative for arthralgias, back pain, gait problem and neck pain. Skin: Negative for color change, pallor, rash and wound. Allergic/Immunologic: Positive for environmental allergies and food allergies. Negative for immunocompromised state. Neurological: Positive for headaches. Hematological: Negative for adenopathy. Does not bruise/bleed easily. Psychiatric/Behavioral: Negative for agitation and behavioral problems. Objective BP 153/94 Pulse 83 Temp 36.8 C (98.3 F) (Left Tympanic) Resp 16 Wt 125.3 kg (276 lb 3.8 oz) LMP 02/23/2024 (Approximate) SpO2 97% BMI 47.42 kg/m Physical Exam Vitals and nursing note reviewed. Constitutional: General: She is not in acute distress. Appearance: Normal appearance. She is normal weight. She is not ill-appearing, toxic-appearing or diaphoretic. HENT: Head: Normocephalic and atraumatic. Right Ear: Ear canal and external ear normal. Left Ear: Ear canal and external ear normal. Nose: Congestion present. No rhinorrhea. Mouth/Throat: Mouth: Mucous membranes are moist. Pharynx: Posterior oropharyngeal erythema present. No oropharyngeal exudate. Eyes: General: Right eye: No discharge. Left eye: No discharge. Extraocular Movements: Extraocular movements intact. Conjunctiva/sclera: Conjunctivae normal. Pupils: Pupils are equal, round, and reactive to light. Cardiovascular: Rate and Rhythm: Normal rate and regular rhythm. Pulses: Normal pulses. Heart sounds: Normal heart sounds. No murmur heard. No friction rub. Pulmonary: Effort: Pulmonary effort is normal. No respiratory distress. Breath sounds: Normal breath sounds. No stridor. No wheezing, rhonchi or rales. Chest: Chest wall: No tenderness. Abdominal: General: Abdomen is flat. There is no distension. Palpations: Abdomen is soft. There is no mass. Tenderness: There is no abdominal tenderness. There is no right CVA tenderness, left CVA tenderness, guarding or rebound. Hernia: No hernia is present. Musculoskeletal: General: No swelling, tenderness, deformity or signs of injury. Normal range of motion. Cervical back: Normal range of motion and neck supple. No rigidity. Right lower leg: No edema. Left lower leg: No edema. Lymphadenopathy: Cervical: Cervical adenopathy present. Skin: General: Skin is warm and dry. Capillary Refill: Capillary refill takes less than 2 seconds. Coloration: Skin is not jaundiced or pale. Findings: No bruising, erythema, lesion or rash. Neurological: General: No focal deficit present. Mental Status: She is alert and oriented to person, place, and time. Cranial Nerves: No cranial nerve deficit. Sensory: No sensory deficit. Motor: No weakness. Coordination: Coordination normal. Gait: Gait normal. Psychiatric: Mood and Affect: Mood normal. Behavior: Behavior normal. Thought Content: Thought content normal. Judgment: Judgment normal. Assessment and Plan ASSESSMENT/PLAN: 1. URI, acute - ICD9: 465.9, ICD10: J06.9 X 3 days No red flags Lungs CTA - Discussed viral etiology and rationale for treatment. - Group A strep molecular testing negative - Symptomatic treatment with prn analgesia - Supportive care with fluids and rest - The patient may also use OTC cough and cold meds as needed, warm salt water gargles, throat lozenges and/or OTC throat spray as needed, nasal saline gtts and suction prn, and RX Prednisone taper if flu is negative can start taking. - Follow up in 3-5 days if symptoms persist or sooner if worsening of symptoms - STREP A MOLECULAR (POC) - COVID & INFLUENZA A/B & RSV PCR, ROUTINE 2. Acute cough - ICD9: 786.2, ICD10: R05.1 X 3 days Hemodynamically stable Well appearing No CXR available at time of exam Will treat as viral, if sx worsen return for CXR. Gunjan Greene APRN.FELLING BUCKING SUPERVISOR documented in this encounter [facility] 01-02-2024 Telephone encounter Note Prescription Refill Information The patient has been identified by name and date of : Yes Caregiver verified no other encounters exist for this prescription request: Yes Caregiver confirmed with patient/requestor that no other refills are due, in the near future, with this provider at this time: Yes The last office visit in the department: 08/19/23 Does the patient have a future office visit with this provider/department: No Requested Prescriptions Pending Prescriptions Disp Refills levothyroxine (LEVOXYL) 112 mcg tablet 30 tablet 5 Sig: Take 1 tablet by mouth once daily. Take on empty stomach. For thyroid. Irwin Boyle LPN January 02, 2024 4:08 PM [facility] 01-02-2024 Miscellaneous Notes Prescription Refill Information The patient has been identified by name and date of : Yes Caregiver verified no other encounters exist for this prescription request: Yes Caregiver confirmed with patient/requestor that no other refills are due, in the near future, with this provider at this time: Yes The last office visit in the department: 08/19/23 Does the patient have a future office visit with this provider/department: No Requested Prescriptions Pending Prescriptions Disp Refills levothyroxine (LEVOXYL) 112 mcg tablet 30 tablet 5 Sig: Take 1 tablet by mouth once daily. Take on empty stomach. For thyroid. Irwin Boyle LPN January 02, 2024 4:08 PM documented in this encounter [facility] 10-25-2023 Note HNO ID: [id number] Author: THEODORA GASTELUM, PhD Service: ? Author Type: Psychologist Type: Progress Notes Filed: 10/25/2023 15:16 Note Text: Patient has applied for the bariatric program and endorsed bipolar disorder > 2 years ago. She is not currently in mental health treatment. Patient's PCP, Dr. Eugene, submitted a letter in support of her stability for bariatric surgery (+ see his office note dated 08/19/23). Plan: Patient can enter into the BMI program beginning with the Psychology Orientation/Welcome group, followed by 1:1 psychology consult to clarify appropriateness for surgery. It is likely that she will need to establish formal mental health treatment as part of the process. Message sent to navigator. Theodora Gastelum, Ph.D. Psychologist [facility] 09-02-2023 Telephone encounter Note Patient notified. Samantha Dumont RN [facility] 09-02-2023 Miscellaneous Notes Patient notified. Samantha Dumont RN Left message to call office. Estefani Medina RN ----- Message from Aurora Travis MD sent at 09/02/2023 11:27 AM EDT ----- Notify pt benign pathology Repeat pap and HPV 12 months documented in this encounter [facility] 09-02-2023 Telephone encounter Note Left message to call office. Estefani Medina RN [facility] 09-02-2023 Telephone encounter Note ----- Message from Aurora Travis MD sent at 09/02/2023 11:27 AM EDT ----- Notify pt benign pathology Repeat pap and HPV 12 months [facility] 09-01-2023 Instructions Magda Ulloa MA - 09/01/2023 10:48 AM EDT YOUR RECOVERY It may take a few weeks for your cervix to heal. While your cervix heals, you may have: - Vaginal bleeding (less than a normal menstrual period) - Mild cramping - A brown-black vaginal discharge (similar to coffee grounds) which is a result of the paste used to help stop bleeding from the procedure Do NOT put anything in the vagina for 1 week after your colposcopy if your doctor does a biopsy of your cervix. This includes sex, tampons, and douches. If you have any discomfort, you may take an over the counter pain medication (motrin, advil, ibuprofen, tylenol, etc). If this does not relieve your discomfort, contact your doctor's office for a prescription strength pain medication. It is okay to wear a sanitary pad until the discharge and spotting stops. RISKS Although problems seldom occur with colposcopy, there can be some complications. You may feel faint during and shortly after the procedure as well as have some bleeding and vaginal discharge after the procedure. There is also a risk of infection after the procedure. These complications are rare and can be easily treated. You should contact you doctor is you have any of the following: - Heavy bleeding (more than your normal period) - Bleeding with clots - Severe abdominal pain - Fever (more than 100.4F) - Foul smelling vaginal discharge RESULTS If a biopsy was taken, we will have the results of your biopsy in 1-2 weeks. If you do not hear the results of your biopsy after 2 weeks, please contact your physicians office for the results. Depending on the biopsy results, your doctor will determine your follow up plan which may include further testing or treatments. STAYING HEALTHY After the procedure, you will need to see your doctor for follow up visits during the year. At these visits your doctor will check the health of your cervix with a pap smear. After three normal pap smears, your doctor will allow you to return to having exams once a year. If you have another abnormal pap smear, you may need closer follow up for longer or you may need additional treatment. By making a few lifestyle changes after the procedure, you can help protect the health of your cervix: - Have regular pelvic exams and pap smears as ordered by your doctor. - Stop smoking as smoking increases your risk of developing a cancer of the cervix - If you have more than one sexual partner, limit your number of partners and use condoms to reduce your risks of STDs. If you have any additional questions, please contact your doctor's office. documented in this encounter [facility] 09-01-2023 Note HNO ID: [id number] Author: AURORA TRAVIS MD Service: ? Author Type: Physician Type: Progress Notes Filed: 09/01/2023 17:09 Note Text: Hotel Superintendent offered: Patient declinesAzul Hollins is a 28 year old Female who presents today for a colposcopy. The patient's last pap smear was ASCUS with positive HPV from July 2023. Patient has a history of abnormal pap: Yes. The patient has had prior treatment: none. test: negative UNIVERSAL PROTOCOL / SAFETY CHECKLIST Procedure to be Performed: Colposcopy with possible biopsies. Sign In: A Moment of CARE was completed. Personnel directly involved with the procedure wore the appropriate PPE (Personal Protective Equipment). Patient/Surrogate Stated/Verified: PATIENT VERIFIED(optional for EMERGENT procedures): Patient name, Date of , Relevant allergies, and The intended procedure Time Out Communication: Intended patient and procedure match the source documents. Consent documented and matches the intended procedure. Sign Out: SIGN OUT (optional for EMERGENT procedures): All specimen containers correctly labeled. All instruments, equipment, possible retained foreign bodies accounted for. Post-procedure follow-up management communicated and Plan of Care Visit completed when applicable. PROCEDURE: EXTERNAL GENITALIA: Normal in appearance without lesions VAGINA: Normal in appearance without lesions CERVIX: Speculum placed in vagina and excellent visualization of cervix achieved. Cervix swabbed x 3 with 3% acetic acid solution. Cervix grossly normal. Squamocolumnar junction visualized. No punctations, mosaicism or atypical vasculature noted. Possible acetowhite change at 6 o'clock at transformation zone. BIOPSY: Done at 6:00 ECC: done HEMOSTASIS: Obtained with pressure Procedure Summary: Patient tolerated procedure well and colposcopy was adequate. ASSESSMENT: HPV effect PLAN: Specimens labeled and sent to Pathology. Will notify patient of results in 1-2 weeks. Post-procedure instructions reviewed and written material given to the patient. Aurora Travis DO [facility] 09-01-2023 History of Presen t illness Narrative Hotel Superintendent offered: Patient declines. Gunjan is a 28 year old Female who presents today for a colposcopy. The patient's last pap smear was ASCUS with positive HPV from July 2023. Patient has a history of abnormal pap: Yes. The patient has had prior treatment: none. test: negative UNIVERSAL PROTOCOL / SAFETY CHECKLIST Procedure to be Performed: Colposcopy with possible biopsies. Sign In: A Moment of CARE was completed. Personnel directly involved with the procedure wore the appropriate PPE (Personal Protective Equipment). Patient/Surrogate Stated/Verified: PATIENT VERIFIED(optional for EMERGENT procedures): Patient name, Date of , Relevant allergies, and The intended procedure Time Out Communication: Intended patient and procedure match the source documents. Consent documented and matches the intended procedure. Sign Out: SIGN OUT (optional for EMERGENT procedures): All specimen containers correctly labeled. All instruments, equipment, possible retained foreign bodies accounted for. Post-procedure follow-up management communicated and Plan of Care Visit completed when applicable. PROCEDURE: EXTERNAL GENITALIA: Normal in appearance without lesions VAGINA: Normal in appearance without lesions CERVIX: Speculum placed in vagina and excellent visualization of cervix achieved. Cervix swabbed x 3 with 3% acetic acid solution. Cervix grossly normal. Squamocolumnar junction visualized. No punctations, mosaicism or atypical vasculature noted. Possible acetowhite change at 6 o'clock at transformation zone. BIOPSY: Done at 6:00 ECC: done HEMOSTASIS: Obtained with pressure Procedure Summary: Patient tolerated procedure well and colposcopy was adequate. ASSESSMENT: HPV effect PLAN: Specimens labeled and sent to Pathology. Will notify patient of results in 1-2 weeks. Post-procedure instructions reviewed and written material given to the patient. Aurora Travis DO documented in this encounter [facility] 08-19-2023 Note HNO ID: [id number] Author: BURT EUGENE MD Service: ? Author Type: Physician Type: Progress Notes Filed: 08/19/2023 17:05 Note Text: Patient presents with: Follow Up HPI:This visit is a virtual encounter. It required patient-provider interaction for the medical decision making as documented below. Patient has elected to have a visit through distance medicine I have communicated my name and active licensure. The patient's identity and physical location were verified at the time of this visit. Either the patient or their legal corporate representative has been informed of the risks and benefits of -- and alternatives to -- treatment through a remote evaluation and consents to proceed with the evaluation remotely. She will be doing bariatric surgery. She filled out some prescreening and because she had remote mental health issues, they wanted her to get the ok from us that she is emotionally is stable. Last treatment was 12 years ago. Used to see the counseling center. No current depression. No apathy. No mood swings. No manic symptoms. No anxiety symptoms. No issues controlling her worrying. Has been trying a number of things to help with weight loss in the past. nurys Alonso had referred her to bariatrics. No suicidal ideation. No hx of eating disorders in the past, including bulimia and anorexia. No issues with thyroid. Behavioral Health Screening LA-7 Score: 0. Recommendation: no further intervention at this time MEDICATIONS: Current Outpatient Medications Medication Sig vit/iron fum/folic ac ( 1 + 1 ORAL) Take by mouth. levothyroxine (LEVOXYL) 112 mcg tablet Take 1 tablet by mouth once daily. Take on empty stomach. For thyroid. No current facility-administered medications for this visit. ALLERGIES: ALLERGIES Allergen Reactions Lamotrigine Hives Dust Mites Other: See Comments Skin test positive in office Erythromycin Hives Red Dye Hives Seasonal Allergies Other: See Comments Tested positive for COCKROACH in office Sulfa (Sulfonamide * Rash PAST MEDICAL HISTORY Diagnosis Date Abnormal Pap smear of cervix 08/15/2014 ASCUS Abnormal ultrasound of breast 05/01/2012 Amenorrhea 02/19/2011 Anxiety disorder 02/09/2012 Asthma 07/03/2012 Bipolar disorder (HCC) 02/19/2011 Breast disorder fibrocystic breasts Depression 02/19/2011 Family history of Izaiah's disease 02/19/2011 Tex's disease 2023 HPV test positive 08/15/2014 Overweight(278.02) 02/19/2011 Palpitations 02/19/2011 Seizure (HCC) Seizures (HCC) 02/19/2011 Shortness of breath 10/25/2012 Syncope 02/19/2011 PAST SURGICAL HISTORY Procedure Laterality Date DELIVERY ONLY 06/02/2015 Had extensive surgery following delivery on the incision site. PAST SURGICAL HISTORY OF tongue clip PAST SURGICAL HISTORY OF age 16 yr right breast biopsy- benign TONSILLECTOMY AND ADENOIDECTOMY FAMILY HISTORY Problem Relation Age of Onset Heart Mother other (pancreatitis) Father Hypothyroidism Brother Hypertension Brother Heart Maternal Grandmother Cancer Maternal Grandmother lung cancer Heart Maternal Grandfather Sleep Apnea Diabetes Paternal Grandmother No Known Problems Daughter Social History Tobacco Use Smoking status: Former Packs/day: .5 Types: Cigarettes Smokeless tobacco: Never Tobacco comments: Patient vapes nicotine no longer smoking cigarettes Vaping Use Vaping Use: current everyday user Substances: Nicotine Substance Use Topics Alcohol use: No Drug use: No Reviewed current medications, allergies, past medical history, surgical history, family history and social history today. REVIEW OF SYSTEMS All other reviewed and negative other than HPI. VITALS: Could not assess Last 4 Encounter Wt Readings: Date: Wt: 07/26/2023 128.2 kg (282 lb 9.6 oz) 08/06/2022 122.5 kg (270 lb) 07/22/2022 123.4 kg (272 lb) 01/25/2022 122.6 kg (270 lb 3.2 oz) PHYSICAL EXAMINATION: Patient is alert and oriented during visit. Answers appropriately. Breathing comfortably. ASSESSMENT/PLAN: 1. History of mood disorder - ICD9: V11.1, ICD10: Z86.59 (primary diagnosis) - letter printed to fax. No issues that I can discern that would indicated she Is unsafe to emotionally undergo bariatric surgery. 2. Class 3 severe obesity with serious comorbidity and body mass index (BMI) of 45.0 to 49.9 in adult, unspecified obesity type (HCC) - ICD9: 278.01, V85.42, ICD10: E66.01, Z68.42 - as above. Burt Eugene MD [facility] 08-19-2023 History of Presen t illness Narrative Patient presents with: Follow Up HPI:This visit is a virtual encounter. It required patient-provider interaction for the medical decision making as documented below. Patient has elected to have a visit through distance medicine I have communicated my name and active licensure. The patient's identity and physical location were verified at the time of this visit. Either the patient or their legal corporate representative has been informed of the risks and benefits of -- and alternatives to -- treatment through a remote evaluation and consents to proceed with the evaluation remotely. She will be doing bariatric surgery. She filled out some prescreening and because she had remote mental health issues, they wanted her to get the ok from us that she is emotionally is stable. Last treatment was 12 years ago. Used to see the counseling center. No current depression. No apathy. No mood swings. No manic symptoms. No anxiety symptoms. No issues controlling her worrying. Has been trying a number of things to help with weight loss in the past. nurys Alonso had referred her to bariatrics. No suicidal ideation. No hx of eating disorders in the past, including bulimia and anorexia. No issues with thyroid. Behavioral Health Screening LA-7 Score: 0. Recommendation: no further intervention at this time MEDICATIONS: Current Outpatient Medications Medication Sig vit/iron fum/folic ac ( 1 + 1 ORAL) Take by mouth. levothyroxine (LEVOXYL) 112 mcg tablet Take 1 tablet by mouth once daily. Take on empty stomach. For thyroid. No current facility-administered medications for this visit. ALLERGIES: ALLERGIES Allergen Reactions Lamotrigine Hives Dust Mites Other: See Comments Skin test positive in office Erythromycin Hives Red Dye Hives Seasonal Allergies Other: See Comments Tested positive for COCKROACH in office Sulfa (Sulfonamide * Rash PAST MEDICAL HISTORY Diagnosis Date Abnormal Pap smear of cervix 08/15/2014 ASCUS Abnormal ultrasound of breast 05/01/2012 Amenorrhea 02/19/2011 Anxiety disorder 02/09/2012 Asthma 07/03/2012 Bipolar disorder (HCC) 02/19/2011 Breast disorder fibrocystic breasts Depression 02/19/2011 Family history of Izaiah's disease 02/19/2011 Tex's disease 2023 HPV test positive 08/15/2014 Overweight(278.02) 02/19/2011 Palpitations 02/19/2011 Seizure (HCC) Seizures (HCC) 02/19/2011 Shortness of breath 10/25/2012 Syncope 02/19/2011 PAST SURGICAL HISTORY Procedure Laterality Date DELIVERY ONLY 06/02/2015 Had extensive surgery following delivery on the incision site. PAST SURGICAL HISTORY OF tongue clip PAST SURGICAL HISTORY OF age 16 yr right breast biopsy- benign TONSILLECTOMY & ADENOIDECTOMY <AGE 10 FAMILY HISTORY Problem Relation Age of Onset Heart Mother other (pancreatitis) Father Hypothyroidism Brother Hypertension Brother Heart Maternal Grandmother Cancer Maternal Grandmother lung cancer Heart Maternal Grandfather Sleep Apnea Diabetes Paternal Grandmother No Known Problems Daughter Social History Tobacco Use Smoking status: Former Packs/day: .5 Types: Cigarettes Smokeless tobacco: Never Tobacco comments: Patient vapes nicotine no longer smoking cigarettes Vaping Use Vaping Use: current everyday user Substances: Nicotine Substance Use Topics Alcohol use: No Drug use: No Reviewed current medications, allergies, past medical history, surgical history, family history and social history today. REVIEW OF SYSTEMS All other reviewed and negative other than HPI. VITALS: Could not assess Last 4 Encounter Wt Readings: Date: Wt: 07/26/2023 128.2 kg (282 lb 9.6 oz) 08/06/2022 122.5 kg (270 lb) 07/22/2022 123.4 kg (272 lb) 01/25/2022 122.6 kg (270 lb 3.2 oz) PHYSICAL EXAMINATION: Patient is alert and oriented during visit. Answers appropriately. Breathing comfortably. ASSESSMENT/PLAN: 1. History of mood disorder - ICD9: V11.1, ICD10: Z86.59 (primary diagnosis) - letter printed to fax. No issues that I can discern that would indicated she Is unsafe to emotionally undergo bariatric surgery. 2. Class 3 severe obesity with serious comorbidity and body mass index (BMI) of 45.0 to 49.9 in adult, unspecified obesity type (HCC) - ICD9: 278.01, V85.42, ICD10: E66.01, Z68.42 - as above. Burt Eugene MD documented in this encounter [facility] 08-17-2023 Telephone encounter Note We probably need to see her for that. I have not seen her myself since 2021. Can be on a virtual visit on if need be [facility] 08-17-2023 Miscellaneous Notes We probably need to see her for that. I have not seen her myself since 2021. Can be on a virtual visit on if need be See 08/02/23 MyCsusannah note. documented in this encounter [facility] 08-17-2023 Telephone encounter Note See 08/02/23 Deyanira note. [facility] 08-12-2023 Telephone encounter Note PATIENT NOTIFIED OF SAME. [facility] 08-12-2023 Miscellaneous Notes PATIENT NOTIFIED OF SAME. Deyanira message sent to pt notifying her we attempted to reach her by phone with message left. Sent message to pt notifying her of results and recommendations below from Provider. Asked pt to notify office that she received results. Made aware lab orders have been placed to complete in 12 weeks. Will watch for pt to review message. Theresa Jonas MA Message left on VM for patient to return call to review provider's message with her. Saida Loo LPN Can you please call the patient and let her know that I reviewed her thyroid labs. TSH is now normal. I recommend that she continue with Synthroid 112 mcg daily. If she would like we can repeat labs in 12 weeks to ensure that the TSH stays within normal range. Please let me know if she has any questions. Thank you. Margoth Fox APRN.MEGAN documented in this encounter [facility] 08-12-2023 Telephone encounter Note [employer] message sent to pt notifying her we attempted to reach her by phone with message left. Sent message to pt notifying her of results and recommendations below from Provider. Asked pt to notify office that she received results. Made aware lab orders have been placed to complete in 12 weeks. Will watch for pt to review message. Theresa Jonas MA [facility] 08-11-2023 Telephone encounter Note Message left on for patient to return call to review provider's message with her. Saida Loo LPN [facility] 08-11-2023 Telephone encounter Note Can you please call the patient and let her know that I reviewed her thyroid labs. TSH is now normal. I recommend that she continue with Synthroid 112 mcg daily. If she would like we can repeat labs in 12 weeks to ensure that the TSH stays within normal range. Please let me know if she has any questions. Thank you. Margoth Fox APRN.FELLING BUCKING SUPERVISOR [facility] 07-26-2023 History of Presen t illness Narrative Hotel Superintendent offered: Patient declines. Accompanied by partner. Gunjan is a 28 year old who presents for an annual gynecologic exam with complaints, resumption of irregular menses . Recently diagnosed with hypothyroidism due to Tex's and was started on levothyroxine. Menses: Menses returned in August 2022 after last Depo Provera injection 04/02/2021. They were monthly until becoming irregular in December 2022. Menses currently every 5-8 weeks lasting 5 days. Has menstrual cramping, bloating, mood swings. Menses irregular prior to Depo Provera. Contraception: none - happy if occurs. Previous was a surprise. HPV vaccine: Yes Last Pap: 2020 normal HPV: NA History of abnormal pap: Yes 2015 ASCUS, HRHPV positive, 2016 ASCUS, HPV negative Last mammogram: 2012 abnormal, fibrocystic Sexually active: Yes Time with current partner: 10 years Pain with intercourse: No Postcoital bleeding: No Documentation from previous visit of 07/22/2022 was copied and pasted, documentation has been reviewed and edited as necessary for today's visit. OB History T1 L1 SAB1 IAB0 Ectopic0 Multiple0 Live Births1 Metal Burnisher History LMP: 05/22/2023, Having periods Age at Menarche: Age at First : Age at Menopause: Metal Burnisher History Comments: Sexual Activity: Yes; Male Contraception: None PAST MEDICAL HISTORY Diagnosis Date Abnormal Pap smear of cervix 08/15/2014 ASCUS Abnormal ultrasound of breast 05/01/2012 Amenorrhea 02/19/2011 Anxiety disorder 02/09/2012 Asthma 07/03/2012 Bipolar disorder (HCC) 02/19/2011 Breast disorder fibrocystic breasts Depression 02/19/2011 Family history of Springdale's disease 02/19/2011 Tex's disease 2023 HPV test positive 08/15/2014 Overweight(278.02) 02/19/2011 Palpitations 02/19/2011 Seizure (HCC) Seizures (HCC) 02/19/2011 Shortness of breath 10/25/2012 Syncope 02/19/2011 PAST SURGICAL HISTORY Procedure Laterality Date DELIVERY ONLY 06/02/2015 Had extensive surgery following delivery on the incision site. PAST SURGICAL HISTORY OF tongue clip PAST SURGICAL HISTORY OF age 16 yr right breast biopsy- benign TONSILLECTOMY & ADENOIDECTOMY <AGE 10 FAMILY HISTORY Problem Relation Age of Onset Heart Mother other (pancreatitis) Father Hypothyroidism Brother Hypertension Brother Heart Maternal Grandmother Cancer Maternal Grandmother lung cancer Heart Maternal Grandfather Sleep Apnea Diabetes Paternal Grandmother No Known Problems Daughter SOCIAL HISTORY Social History Tobacco Use Smoking status: Former Packs/day: .5 Types: Cigarettes Smokeless tobacco: Never Tobacco comments: Patient vapes nicotine no longer smoking cigarettes Vaping Use Vaping Use: current everyday user Substances: Nicotine Substance Use Topics Alcohol use: No Drug use: No REVIEW OF SYSTEMS Abdomen: No abdominal pain, nausea, vomiting, diarrhea, or constipation. No bloating, early satiety, indigestion, or increased flatulence. Bladder: No dysuria, gross hematuria, urinary frequency, urinary urgency, or incontinence. Breast: No breast lumps, nipple d/c, overlying skin changes, redness or skin retraction. Allergies and current medication updated:Yes EXAM: BP 104/78 Ht 5' 4 (1.63m) Wt 282 lb 9.6 oz (128.2kg) LMP 05/22/2023 BMI 48.48 kg/(m^2). GENERAL: pleasant, female in no apparent distress HEENT: Normocephalic, atraumatic, mucus membranes moist, and no lesions NECK: Supple, full range of motion, no adenopathy, and thyroid normal DERMATOLOGY: Normal, without lesions, non-icteric, and non-hirsute BREAST: soft, non-tender, symmetric, no dominant mass, normal nipple-areolar complex, no lymphadenopathy, and no nipple discharge CHEST: Normal inspiratory effort ABDOMEN: soft, non-tender, and no masses PELVIC: external genitalia normal, normal Bartholin's glands, urethra, Crab Orchard's glands, no vulvar lesions, no cervical lesions, good vaginal support, physiologic discharge present, normal appearing perineal body and perianal region BIMANUAL: non-tender. Difficult exam due to body habitus. RECTOVAGINAL: deferred. NEURO: alert and oriented x3,exam grossly non-focal EXTREMITIES: normal ASSESSMENT/PLAN: 1) Health maintenance: Pap done with HPV. Nutrition, exercise and routine health maintenance exams reviewed. HPV vaccine: completed series 2. Irregular menstrual cycle - ICD9: 626.4, ICD10: N92.6 - menstrual cycle irregular since menarche which has resumed since discontinuation of Depo-Provera. Menses every 5-8 weeks. Discussed need to notify me if irregularity extends to 3 months. 3. Class 3 severe obesity with serious comorbidity and body mass index (BMI) of 45.0 to 49.9 in adult, unspecified obesity type (HCC) - ICD9: 278.01, V85.42, ICD10: E66.01, Z68.42 Weight increasing The benefits of long-term weight loss with metabolic surgery vs weight loss with dietary changes discussed including differences in hunger and satiety hormones and metabolism. Surgical options briefly discussed. She is interested and consult to BMI placed. - [facility]ULT [facility] 4) Contraception: none. Contraceptive options reviewed and information provided. 5) STD screening: Declined STD check. 6) Follow up one year or sooner as needed Sherine Galvin APRN.MEGAN documented in this encounter [facility] 07-07-2023 Miscellaneous Notes Call to pt and notified her of results and recommendations below from Provider. Pt verbalized understanding. Does not have any further questions. Was notified when to complete repeat labs. Theresa Jonas MA Can you please call the patient and let her know that I reviewed her repeat thyroid labs. TSH is still elevated. I would recommend we increase the levothyroxine to 112 mcg and repeat labs again in 6 to 8 weeks. Prescription was sent to [facility]. Please let me know if she has any questions. Thank you. The following approved medication requests have been transmitted electronically. Requested Prescriptions Signed Prescriptions Disp Refills levothyroxine (LEVOXYL) 112 mcg tablet 30 tablet 5 Sig: Take 1 tablet by mouth once daily. Take on empty stomach. For thyroid. Authorizing Provider: MARGOTH FOX APRN.MEGAN documented in this encounter [facility] 06-02-2023 Miscellaneous Notes Patient notified of results, verbalizes understanding of instructions. Shyanne Singer LPN Can you please call the patient and let her know that Meghann is out of the office. I reviewed her repeat thyroid labs. TSH has improved but is still elevated. I would like to increase her levothyroxine to 75 mcg and get repeat labs in 6 to 8 weeks. Please let me know if she has any questions. Thank you. The following approved medication requests have been transmitted electronically. Requested Prescriptions Signed Prescriptions Disp Refills levothyroxine (LEVOXYL) 75 mcg tablet 30 tablet 5 Sig: Take 1 tablet by mouth once daily. Take on empty stomach. For thyroid. Authorizing Provider: MARGOTH FOX APRN.FELLING BUCKING SUPERVISOR Prescription sent to [facility]. documented in this encounter [facility] 04-29-2023 Miscellaneous Notes Patient informed and verbalized understanding. Feeling better since starting thyroid med. Estefani Ashraf Holter overall is ok. Does show occasional extra beats from upper chambers. Those usually are not dangerous Check how feeling. documented in this encounter [facility] 07-22-2022 History of Presen t illness Narrative Hotel Superintendent offered: Patient declines. Gunjan is a 27 year old who presents for an annual gynecologic exam with complaints, no menses since Depo Provera . Menses: No menses since last Depo Provera injection 04/02/2021. Had been taking it since of daughter 7 years prior. Contraception: none - happy if occurs HPV vaccine: Yes Last Pap: 2020 normal HPV: NA History of abnormal pap: Yes 2015 ASCUS, HRHPV positive, 2017 ASCUS, HPV negative Last mammogram: 2012 abnormal, fibrocystic Sexually active: Yes Time with current partner: 9 years Pain with intercourse: No Postcoital bleeding: No Documentation from previous visit of 01/06/2021 was copied and pasted, documentation has been reviewed and edited as necessary for today's visit. OB History T1 L1 SAB1 IAB0 Ectopic0 Multiple0 Live Births1 Metal Burnisher History LMP: LMP Unknown, Having periods Age at Menarche: Age at First : Age at Menopause: Metal Burnisher History Comments: Sexual Activity: Yes; Male Contraception: None PAST MEDICAL HISTORY Diagnosis Date Abnormal Pap smear of cervix 08/15/14 ASCUS Abnormal ultrasound of breast 05/01/2012 Amenorrhea 02/19/2011 Anxiety disorder 02/09/2012 Asthma 07/03/2012 Bipolar disorder (HCC) 02/19/2011 Breast disorder fibrocystic breasts Depression 02/19/2011 Family history of Springdale's disease 02/19/2011 HPV test positive 08/15/14 Overweight(278.02) 02/19/2011 Palpitations 02/19/2011 Seizure (HCC) Seizures (HCC) 02/19/2011 Shortness of breath 10/25/2012 Syncope 02/19/2011 PAST SURGICAL HISTORY Procedure Laterality Date DELIVERY ONLY 06/02/2015 Had extensive surgery following delivery on the incision site. PAST SURGICAL HISTORY OF tongue clip PAST SURGICAL HISTORY OF age 16 yr right breast biopsy- benign TONSILLECTOMY & ADENOIDECTOMY <AGE 10 FAMILY HISTORY Problem Relation Age of Onset Heart Mother other (pancreatitis) Father Hypothyroidism Brother Hypertension Brother Heart Maternal Grandmother Cancer Maternal Grandmother lung cancer Heart Maternal Grandfather Sleep Apnea Diabetes Paternal Grandmother No Known Problems Daughter SOCIAL HISTORY Social History Tobacco Use Smoking status: Former Packs/day: 0.50 Types: Cigarettes Smokeless tobacco: Never Vaping Use Vaping Use: current everyday user Substances: Nicotine Substance Use Topics Alcohol use: No Drug use: No REVIEW OF SYSTEMS Abdomen: No abdominal pain, nausea, vomiting, diarrhea, or constipation. No bloating, early satiety, indigestion, or increased flatulence. Bladder: No dysuria, gross hematuria, urinary frequency, urinary urgency, or incontinence. Breast: No breast lumps, nipple d/c, overlying skin changes, redness or skin retraction. Allergies and current medication updated:Yes EXAM: BP 124/72 Ht 5' 4 (1.63m) Wt 272 lb (123.4kg) BMI 46.67 kg/(m^2). GENERAL: pleasant, female in no apparent distress HEENT: Normocephalic, atraumatic, mucus membranes moist, and no lesions NECK: Supple, full range of motion, no adenopathy, and thyroid normal DERMATOLOGY: Normal, without lesions, non-icteric, and non-hirsute BREAST: soft, non-tender, symmetric, no dominant mass, normal nipple-areolar complex, no lymphadenopathy, and no nipple discharge CHEST: Normal inspiratory effort ABDOMEN: soft, non-tender, no masses, and pannus PELVIC: external genitalia normal, normal Bartholin's glands, urethra, Cr[place]chard's glands, no vulvar lesions, no cervical lesions, good vaginal support, physiologic discharge present, normal appearing perineal body and perianal region BIMANUAL: uterus normal size, shape and consistency, no adnexal masses, and non-tender RECTOVAGINAL: deferred. NEURO: alert and oriented x3,exam grossly non-focal EXTREMITIES: normal ASSESSMENT/PLAN: 1) Health maintenance: Pap/HPV up to date. Nutrition, exercise and routine health maintenance exams reviewed. Smoking cessation: Benefits of smoking cessation reviewed. Patient encouraged to avoid smoking. HPV vaccine: completed series 2. Drug induced amenorrhea - ICD9: 626.0, E947.9, ICD10: N91.1, T50.905A - Last dose of Depo Provera 03/2021 - discussed that it can take up to 2 years for menses to return. Menses were irregular prior to last . 3. Class 3 severe obesity with body mass index (BMI) of 45.0 to 49.9 in adult, unspecified obesity type, unspecified whether serious comorbidity present (HCC) - ICD9: 278.01, V85.42, ICD10: E66.01, Z68.42 Weight increasing -Discussed weight loss with patient's permission. Discussed weight loss options and is interested in consult for metabolic surgery. Consult placed. - [facility] 4) Contraception: none. Happy if occurs. Informed that if she proceeds with surgery or any medications to lose weight, she would need to use contraception and she is agreeable. 5) STD screening: Declined STD check. 6) Follow up one year or sooner as needed Sherine Galvin APRN.FELLING BUCKING SUPERVISOR documented in this encounter [facility] 01-25-2022 Miscellaneous Notes Patient was made aware of the results. Patient verbalizes understanding. Sravani Grace Ma Xray shows healing fracture on the right of a rib which is why it is still sore. Should improve over the next few weeks. documented in this encounter [facility] 01-25-2022 History of Presen t illness Narrative Radiology Service Progress Note PATIENT NAME: Gunjan Thao DATE OF SERVICE: January 25, 2022 TIME: 2:06 PM PATIENT IDENTITY VERIFICATION COMPLETED USING TWO (2) IDENTIFIERS: Name and Date of confirmed by patient verbally. FALL SCREENING: Has the patient had 2 falls in the last year or 1 fall with injury or currently using an Ambulatory Assistive Device (Walker, Cane, Wheelchair, Crutches, etc.)? No PATIENT GENDER DATA: Female. status: : No status: NO. PATIENT RELEVANT IMPLANT DATA REVIEWED: Not Applicable RADIOLOGY DEPARTMENT: General X-ray: Exam(s) Completed: Rib X-Ray: Right PERIPHERAL IV DATA: Not applicable SIGNED BY: RT Danna(R) January 25, 2022 2:06 PM documented in this encounter [facility] 01-25-2022 History of Presen t illness Narrative Patient presents with: Abdominal Pain: Right sided/Upper abdominal pain. Underneath right breast/ribcage area. HPI: Patient presents today for office visit for acute visit. Complaints of right side pain X 1 month. Constant pain on right side, underneath right breast near ribcage. Hurts to walk, breath in and out. No injury. Pain is so severe sometimes make patient nauseous and she vomits. Started after having a cold and was coughing a month ago. Had gotten better but is now worse. Is worse on laying down. Worse when laying certain ways or moving. No shortness of breath. Is focal and pinpoint tender to touch. No bruising or swelling. No current cough or edema. MEDICATIONS: Current Outpatient Medications Medication Sig nystatin (NYSTOP) powder Apply 1 application to affected area four times daily. meclizine (ANTIVERT) 25 mg tab Take 1 tablet by mouth three times daily as needed (dizziness). No current facility-administered medications for this visit. ALLERGIES: ALLERGIES Allergen Reactions Lamotrigine Hives Dust Mites Other: See Comments Skin test positive in office Erythromycin Hives Red Dye Hives Seasonal Allergies Other: See Comments Tested positive for COCKROACH in office Sulfa (Sulfonamide * Rash PAST MEDICAL HISTORY Diagnosis Date Abnormal Pap smear of cervix 08/15/14 ASCUS Abnormal ultrasound of breast 05/01/2012 Amenorrhea 02/19/2011 Anxiety disorder 02/09/2012 Asthma 07/03/2012 Bipolar disorder (HCC) 02/19/2011 Breast disorder fibrocystic breasts Depression 02/19/2011 Family history of Springdale's disease 02/19/2011 HPV test positive 08/15/14 Overweight(278.02) 02/19/2011 Palpitations 02/19/2011 Seizure (HCC) Seizures (HCC) 02/19/2011 Shortness of breath 10/25/2012 Syncope 02/19/2011 PAST SURGICAL HISTORY Procedure Laterality Date DELIVERY ONLY 06/02/2015 Had extensive surgery following delivery on the incision site. PAST SURGICAL HISTORY OF tongue clip PAST SURGICAL HISTORY OF age 16 yr right breast biopsy- benign TONSILLECTOMY & ADENOIDECTOMY <AGE 10 FAMILY HISTORY Problem Relation Age of Onset Heart Mother other (pancreatitis) Father Hypothyroidism Brother Hypertension Brother Heart Maternal Grandmother Cancer Maternal Grandmother lung cancer Heart Maternal Grandfather Sleep Apnea Diabetes Paternal Grandmother No Known Problems Daughter Social History Tobacco Use Smoking status: Every Day Packs/day: 0.50 Types: Cigarettes Smokeless tobacco: Never Vaping Use Vaping Use: Former Substance Use Topics Alcohol use: No Drug use: No Reviewed current medications, allergies, past medical history, surgical history, family history and social history today. REVIEW OF SYSTEMS All other reviewed and negative other than HPI. VITALS: BP 118/80 Pulse 93 Ht 160 cm (5' 3) Wt 122.6 kg (270 lb 3.2 oz) LMP (LMP Unknown) SpO2 99% BMI 47.86 kg/m Last 4 Encounter Wt Readings: Date: Wt: 11/27/2021 121.2 kg (267 lb 3.2 oz) 06/25/2021 122 kg (269 lb) 04/02/2021 122 kg (269 lb) 03/12/2021 122.5 kg (270 lb) PHYSICAL EXAMINATION: General appearance: Well appearing, alert, in no acute distress, well-hydrated, well nourished. Pain is worse with laying down or trying to sit up. Skin: Skin color, texture, turgor normal, no suspicious rashes or lesions Head: Normocephalic, no masses, lesions, tenderness or abnormalities Chest wall tender over right costochondral area. No deformity. No step off. No rash. Lungs: Lungs clear to auscultation. No wheezing, rhonchi, rales Heart: RRR without murmur, gallop, or rubs. No ectopy Abdomen: Normal abdominal exam, Abdomen soft, non-tender. Bowel sounds normal. No masses, organomegaly Extremities: No deformities, edema ASSESSMENT/PLAN: 1. Costochondritis - ICD9: 733.6, ICD10: M94.0 (primary diagnosis) - Discussed risks and benefits of new medication with the patient. Advised them to call if any side effects or questions. Pain definitely appears to be in chest wall. Red flags for re-assessment reviewed with patient in detail. Call if symptoms worsen at all or if not better in one to two weeks Reviewed diagnosis and treatment options in detail. Questions were answered. Patient expressed understanding of treatment plan. - MELOXICAM 15 MG TABLET - CYCLOBENZAPRINE 10 MG TABLET 2. Rib pain on right side - ICD9: 786.50, ICD10: R07.81 - XR RIBS/CHEST 3V AP RIB/OBLS/CXR RIGHT Burt Eugene MD documented in this encounter [facility] 11-27-2021 Instructions Gala Morales APRN.FELLING BUCKING SUPERVISOR - 11/27/2021 5:19 PM EDT Zyrtec 10 mg By mouth daily at bedtime Flonase or Nasonex 2 sprays in each nostril once a day Amoxicillin as ordered Do not take meclizine with zyrtec Tylenol (generic acetaminophen) 500 mg-2 tabs every 8 hrs. as needed for fever and aches Ibuprofen 600 mg (3-200mg tablets) every 6 hours GO TO THE ER IF: 1. You have a severe headache or pain around the ear. 2. You notice swelling around the ear. 3. You have a seizure (convulsion), twitching of the facial muscles, or passes out. 4. You are dizzy, have a stiff neck, or cannot walk or talk normally. documented in this encounter [facility] 11-27-2021 History of Presen t illness Narrative Subjective The history is provided by the patient. No technical services assistant was used. HPI Gunjan Thao is a 26 year old female who presents today for CC of bilateral ear pain that started in the past 24 hours. Over the past week she had URI symptoms, cough, congestion and runny nose that improved, but in past 24 hours ears have worsened. Currently not using any medications. BP 116/88 Pulse 96 Temp 36.1 C (97 F) Resp 18 Wt 121.2 kg (267 lb 3.2 oz) LMP (LMP Unknown) SpO2 97% BMI 47.33 kg/m Social History Tobacco Use Smoking status: Every Day Packs/day: 0.50 Types: Cigarettes Smokeless tobacco: Never Vaping Use Vaping Use: Former Substance Use Topics Alcohol use: No Drug use: No PAST MEDICAL HISTORY Diagnosis Date Abnormal Pap smear of cervix 08/15/14 ASCUS Abnormal ultrasound of breast 05/01/2012 Amenorrhea 02/19/2011 Anxiety disorder 02/09/2012 Asthma 07/03/2012 Bipolar disorder (HCC) 02/19/2011 Breast disorder fibrocystic breasts Depression 02/19/2011 Family history of Springdale's disease 02/19/2011 HPV test positive 08/15/14 Overweight(278.02) 02/19/2011 Palpitations 02/19/2011 Seizure (HCC) Seizures (HCC) 02/19/2011 Shortness of breath 10/25/2012 Syncope 02/19/2011 I have confirmed and edited as necessary, the [facility] Review of Systems Constitutional: Negative for chills, fever and malaise/fatigue. HENT: Positive for ear pain. Negative for congestion, sinus pain and sore throat. Respiratory: Negative for cough, sputum production, shortness of breath and wheezing. Cardiovascular: Negative for chest pain. Gastrointestinal: Negative for abdominal pain, diarrhea, nausea and vomiting. Musculoskeletal: Negative for myalgias. Neurological: Negative for headaches. Objective Physical Exam Vitals and nursing note reviewed. HENT: Head: Normocephalic and atraumatic. Right Ear: Ear canal and external ear normal. A middle ear effusion is present. Tympanic membrane is injected and bulging. Left Ear: Ear canal and external ear normal. A middle ear effusion is present. Tympanic membrane is injected and bulging. Nose: No mucosal edema, congestion or rhinorrhea. Right Sinus: No maxillary sinus tenderness or frontal sinus tenderness. Left Sinus: No maxillary sinus tenderness or frontal sinus tenderness. Mouth/Throat: Pharynx: Uvula midline. No oropharyngeal exudate or posterior oropharyngeal erythema. Cardiovascular: Rate and Rhythm: Normal rate and regular rhythm. Heart sounds: Normal heart sounds. Pulmonary: Effort: Pulmonary effort is normal. Breath sounds: Normal breath sounds. Lymphadenopathy: Head: Right side of head: No submental, submandibular or tonsillar adenopathy. Left side of head: No submental, submandibular or tonsillar adenopathy. Cervical: No cervical adenopathy. Skin: General: Skin is warm and dry. Neurological: Mental Status: She is alert. Psychiatric: Mood and Affect: Affect normal. ASSESSMENT/PLAN: 1. Non-recurrent acute serous otitis media of both ears - ICD9: 381.01, ICD10: H65.03 - Will begin treatment with Amoxicillin for 7 days - Supportive care with plenty of fluids, rest, and analgesia prn. - Follow up in one week if symptoms persist or worsen. Zyrtec and flonase as ordered Diagnosis and treatment plan were discussed and questions were answered to the patient's satisfaction. Pt acknowledged understanding of concepts and follow up plan. Specific signs and symptoms that would indicate the need for higher level of care were discussed in detail warranting prompt ER evaluation. Gala Morales APRN.MEGAN documented in this encounter [facility] 06-25-2021 History of Presen t illness Narrative Patient identified by name and date of . Gunjna Thao is here for a Depo Provera injection. Patient brought medication. Date last injected: 04/02/21 Depo-Provera, 150 mg, administered IM left upper quadrant gluteus, Lot # [id number], expiration date 02/17/2025. Depo-Provera was given without incident. Date of last menses: Patient's last menstrual period was 09/21/2017. Irregular bleeding - No Menses ceased - Yes STD prevention discussed: Yes Patient instructed to return to clinic on 12 weeks. [email or web address] Provider Dr. Brown was present in office at time of injection. Sharon Ny RN documented in this encounter [facility] 03-27-2015 History of Past i llness Narrative Problem Noted Date Resolved Date Supervision of high risk in third trim moustapha 03/27/2015 06/25/2015 Supervision of high risk in first trim moustapha 11/20/2014 04/10/2015 Rubella non-immune status, antepartum 10/22/2014 06/25/2015 Tobacco use in 10/21/2014 016 Obesity in 10/21/2014 06/25/2015 Overview: GCT ordered. Encounter for supervision of normal first in first trimester 10/21/2014 11/20/2014 Shortness of breath 10/25/2012 10/21/2014 Abnormal ultrasound of breast 05/01/2012 Overweight(278.02) 02/19/2011 10/21/2014 Syncope 02/19/2011 10/21/2014 Palpitations 02/19/2011 10/21/2014 Amenorrhea 02/19/2011 09/05/2012 Family history of Springdale's disease 02/19/2011 10/21/2014 documented as of this encounter (statuses as of 06/25/2021) [facility] of Past illness Narrative* Problem Noted Date Resolved Date Supervision of high risk in third trim moustapha 03/27/2015 06/25/2015 Supervision of high risk in first trim moustapha 11/20/2014 04/10/2015 Rubella non-immune status, antepartum 10/22/2014 06/25/2015 Tobacco use in 10/21/2014 016 Obesity in 10/21/2014 06/25/2015 Overview: GCT ordered. Encounter for supervision of normal first in first trimester 10/21/2014 11/20/2014 Shortness of breath 10/25/2012 10/21/2014 Abnormal ultrasound of breast 05/01/2012 Overweight(278.02) 02/19/2011 10/21/2014 Syncope 02/19/2011 10/21/2014 Palpitations 02/19/2011 10/21/2014 Amenorrhea 02/19/2011 09/05/2012 Family history of Springdale's disease 02/19/2011 10/21/2014 documented as of this encounter (statuses as of 11/27/2021) [facility] of [facility] Narrative* Problem Noted Date Resolved Date Supervision of high risk in third trim moustapha 03/27/2015 06/25/2015 Supervision of high risk in first trim moustapha 11/20/2014 04/10/2015 Rubella non-immune status, antepartum 10/22/2014 06/25/2015 Tobacco use in 10/21/2014 016 Obesity in 10/21/2014 06/25/2015 Overview: GCT ordered. Encounter for supervision of normal first in first trimester 10/21/2014 11/20/2014 Shortness of breath 10/25/2012 10/21/2014 Abnormal ultrasound of breast 05/01/2012 Overweight(278.02) 02/19/2011 10/21/2014 Syncope 02/19/2011 10/21/2014 Palpitations 02/19/2011 10/21/2014 Amenorrhea 02/19/2011 09/05/2012 Family history of Springdale's disease 02/19/2011 10/21/2014 documented as of this encounter (statuses as of 01/25/2022) [facility] of [facility] Narrative* Problem Noted Date Resolved Date Supervision of high risk in third trim moustapha 03/27/2015 06/25/2015 Supervision of high risk in first trim moustapha 11/20/2014 04/10/2015 Rubella non-immune status, antepartum 10/22/2014 06/25/2015 Tobacco use in 10/21/2014 016 Obesity in 10/21/2014 06/25/2015 Overview: GCT ordered. Encounter for supervision of normal first in first trimester 10/21/2014 11/20/2014 Shortness of breath 10/25/2012 10/21/2014 Abnormal ultrasound of breast 05/01/2012 Overweight(278.02) 02/19/2011 10/21/2014 Syncope 02/19/2011 10/21/2014 Palpitations 02/19/2011 10/21/2014 Amenorrhea 02/19/2011 09/05/2012 Family history of Izaiah's disease 02/19/2011 10/21/2014 documented as of this encounter (statuses as of 01/25/2022) [facility] of [facility] Narrative* Problem Noted Date Resolved Date Supervision of high risk in third trim moustapha 03/27/2015 06/25/2015 Supervision of high risk in first trim moustapha 11/20/2014 04/10/2015 Rubella non-immune status, antepartum 10/22/2014 06/25/2015 Tobacco use in 10/21/2014 016 Obesity in 10/21/2014 06/25/2015 Overview: GCT ordered. Encounter for supervision of normal first in first trimester 10/21/2014 11/20/2014 Shortness of breath 10/25/2012 10/21/2014 Abnormal ultrasound of breast 05/01/2012 Overweight(278.02) 02/19/2011 10/21/2014 Syncope 02/19/2011 10/21/2014 Palpitations 02/19/2011 10/21/2014 Amenorrhea 02/19/2011 09/05/2012 Family history of Springdale's disease 02/19/2011 10/21/2014 documented as of this encounter (statuses as of 07/23/2022) [facility] of [facility] Narrative* Problem Noted Date Diagnosed Date Resolved Date Supervision of high risk pre gnancy in third trimester 03/27/2015 06/25/2015 Supervision of high risk pre gnancy in first trimester 11/20/2014 04/10/2015 Rubella non-immune status, antepartum 10/22/2014 06/25/2015 Tobacco use in 10/21/201408/2015 Obesity in 10/21/2014 016 Overview: GCT ordered. Encounter for supervision of normal first in first trimester 10/21/2014 11/20/2014 Shortness of breath 10/25/2012 10/22/19 15 Abnormal ultrasound of breast 05/01/2012 09/05/2012 Overweight(278.02) 02/19/2011 5 Syncope 02/19/2011 10/21/2014 Palpitations 02/19/2011 10/21/2014 Amenorrhea 02/19/2011 09/05/2012 Family history of Springdale's disease 02/19/2011 10/21/2014 documented as of this encounter (statuses as of 04/29/2023) [facility] Narrative* Problem Noted Date Diagnosed Date Resolved Date Supervision of high risk pre gnancy in third trimester 03/27/2015 06/25/2015 Supervision of high risk pre gnancy in first trimester 11/20/2014 04/10/2015 Rubella non-immune status, antepartum 10/22/2014 06/25/2015 Tobacco use in 10/21/201408/2015 Obesity in 10/21/2014 016 Overview: GCT ordered. Encounter for supervision of normal first in first trimester 10/21/2014 11/20/2014 Shortness of breath 10/25/2012 10/22/19 15 Abnormal ultrasound of breast 05/01/2012 09/05/2012 Overweight(278.02) 02/19/2011 5 Syncope 02/19/2011 10/21/2014 Palpitations 02/19/2011 10/21/2014 Amenorrhea 02/19/2011 09/05/2012 Family history of Springdale's disease 02/19/2011 10/21/2014 documented as of this encounter (statuses as of 06/02/2023) [facility] Narrative* Problem Noted Date Diagnosed Date Resolved Date Supervision of high risk pre gnancy in third trimester 03/27/2015 06/25/2015 Supervision of high risk pre gnancy in first trimester 11/20/2014 04/10/2015 Rubella non-immune status, antepartum 10/22/2014 06/25/2015 Tobacco use in 10/21/201408/2015 Obesity in 10/21/2014 016 Overview: GCT ordered. Encounter for supervision of normal first in first trimester 10/21/2014 11/20/2014 Shortness of breath 10/25/2012 10/22/19 15 Abnormal ultrasound of breast 05/01/2012 09/05/2012 Overweight(278.02) 02/19/2011 5 Syncope 02/19/2011 10/21/2014 Palpitations 02/19/2011 10/21/2014 Amenorrhea 02/19/2011 09/05/2012 Family history of Izaiah's disease 02/19/2011 10/21/2014 documented as of this encounter (statuses as of 07/08/2023) [facility] Diagnosis Encounter for management and injection of depo-Provera- Primary Surveillance of other previously prescribed contraceptive method [facility] Diagnosis Non-recurrent acute serous otitis media of both ears- Primary [facility] Diagnosis Costochondritis- Primary Tietze's disease Rib pain on right side Chest pain, unspecified [facility] Encounter for gynecological examination (general) (routine) without abnormal findings- Primary Drug induced amenorrhea Absence of menstruation Class 3 severe obesity with body mass index (BMI) of 45.0 to 49.9 in adult, unspecified obesity type, unspecified whether serious comorbidity present (HCC) documented in this encounter [facility] note* Diagnosis 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 [facility] Diagnosis 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 [facility] Diagnosis Encounter for gynecological examination with abnormal finding- Primary Routine gynecological examination Irregular menstrual cycle Screening for cervical cancer Screening for malignant neoplasm of the cervix Encounter for screening for human papillomavirus (HPV) Special screening examination for human papillomavirus (HPV) Class 3 severe obesity with serious comorbidity and body mass index (BMI) of 45.0 to 49.9 in adult, unspecified obesity type (HCC) [facility] Diagnosis 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 [facility] Diagnosis History of mood disorder- Primary Personal history of affective disorder Class 3 severe obesity with serious comorbidity and body mass index (BMI) of 45.0 to 49.9 in adult, unspecified obesity type (HCC) [facility]* Diagnosis ASCUS with positive high risk HPV cervical- Primary Cervical high risk human papillomavirus (HPV) DNA test positive [facility]* Diagnosis Rib pain on right side Chest pain, unspecified documented in this encounter [facility] note* Diagnosis 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 [facility] Diagnosis URI, acute- Primary Acute upper respiratory infections of unspecified site Acute cough [facility]* Diagnosis Sore throat- Primary Acute pharyngitis [facility] Diagnosis Pharyngitis, unspecified etiology- Primary Sinobronchitis Unspecified sinusitis (chronic) [facility] Diagnosis Leukocytosis, unspecified type- Primary [facility] Diagnosis Leukocytosis, unspecified type- Primary [facility] Diagnosis Pain- Primary Generalized pain Pain Generalized pain documented in this encounter [facility] note* Diagnosis Pain Generalized pain [facility] Diagnosis 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 documented in this encounter [facility] note* Diagnosis Encounter for gynecological examination (general) (routine) without abnormal findings- Primary Screening for cervical cancer Screening for malignant neoplasm of the cervix Encounter for screening for human papillomavirus (HPV) Special screening examination for human papillomavirus (HPV) documented in this encounter [facility] noteNo assessment information availableWMetroHealth [facility] Work Phone: Reason for referral (narrative)* Diagnostic Procedure Only (Routine) - Closed Specialty Diagnoses / Procedures Referred By Pedroac t Referred To Contact XR IMAGING Diagnoses Rib pain on right side Procedures XR RIBS/CHEST 3V AP RIB/OBLS/CXR RIGHT RADEX RIBS UNI W/POSTEROANT CH MINIMUM 3 VIEWS Burt Eugene MD [address] [place] [address] Xr Imaging Referral ID Status Reason Start Date Expiration Date V isits Requested Visits Authorized [id number] Closed Auto-Generate d Referral 01/25/2022 02/24/2023 1 1 [facility] for referral (narrative)* Outpatient Procedure (Routine) - Pending Review Specialty Diagnoses / Procedures Referred By Jessie estrada Referred To Contact [facility] Diagnoses ASCUS with positive high risk HPV cervical Procedures COLPOSCOPY COLPOSCOPY CERVIX BX CERVIX & ENDOCRV CURRETAGE Aurora Travis MD [address] [place] [address] [facility] [address] [place] [address] Referral ID Status Reason Start Date Expiration Date Visits Requested Visits Authorized [id number] Pending Review Auto-Generat ed Referral 09/01/2023 08/31/2024 1 1 [facility] for referral (narrative)* Diagnostic Procedure Only (Routine) - Closed Specialty Diagnoses / Procedures Referred By Contac t Referred To Contact XR IMAGING Diagnoses Rib pain on right side Procedures XR RIBS/CHEST 3V AP RIB/OBLS/CXR RIGHT RADEX RIBS UNI W/POSTEROANT CH MINIMUM 3 VIEWS Burt Eugene MD [address] [place] [address] [place] [address] Referral ID Status Reason Start Date Expiration Date V isits Requested Visits Authorized [id number] Closed Auto-Generate d Referral 01/25/2022 02/24/2023 1 1 [facility] for referral (narrative)* Diagnostic Procedure Only (Urgent) - Closed Specialty Diagnoses / Procedures Referred By Contac t Referred To Contact XR IMAGING Diagnoses Pain Procedures XR HAND GENERAL 3V PA/LAT/OBL RIGHT RADEX HAND MINIMUM 3 VIEWS Xin Cunha APRN.FELLING BUCKING SUPERVISOR [address] [id number] [place] [address] Referral ID Status Reason Start Date Expiration Date V isits Requested Visits Authorized [id number] Closed Auto-Generate d Referral 03/27/2024 04/26/2025 1 1 [facility] for referral (narrative)No reason for referral information availableWMetroHealth [facility] Work Phone: Reason for visit Narrative* Diagnostic Procedure Only (Routine) - Closed Specialty Diagnoses / Procedures Referred By Contac t Referred To Contact XR IMAGING Diagnoses Rib pain on right side Procedures XR RIBS/CHEST 3V AP RIB/OBLS/CXR RIGHT RADEX RIBS UNI W/POSTEROANT CH MINIMUM 3 VIEWS Burt Eugene MD [address] [place] [address] [place] [address] Referral ID Status Reason Start Date Expiration Date V isits Requested Visits Authorized [id number] Closed Auto-Generate d Referral 01/25/2022 02/24/2023 1 1 [facility] [place] for visit Narrative* Diagnostic Procedure Only (Urgent) - Closed Specialty Diagnoses / Procedures Referred By Contac t Referred To Contact XR IMAGING Diagnoses Pain Procedures XR HAND GENERAL 3V PA/LAT/OBL RIGHT RADEX HAND MINIMUM 3 VIEWS Xin Cunha APRN.FELLING BUCKING SUPERVISOR [address] [place] [address] [facility] [id number] Referral ID Status Reason Start Date Expiration Date V isits Requested Visits Authorized [id number] Closed Auto-Generate d Referral 03/27/2024 04/26/2025 1 1 [facility] Medications Administered Section Active Administered Medications - up to 3 most recent administrations Medication Order MAR Action Action Date Dose Rate Site medroxyPROGESTERone 150 mg injection (DEPO-PROVERA) 150 mg, INTRAMUSCULAR, EVERY 12 WEEKS, 4 doses, First dose on Tue01/06/21 at 1330, Last dose on Tue09/15/21 at 1330, Hazardous Potential Reproductive Risk Drug: Use appropriate PPE. Given 06/25/2021 3:56 PM EDT 150 mg Buttocks, Left Given 04/02/2021 3:53 PM EST 150 mg Bu ttocks, Right Reason for Referral Specialty Diagnoses / Procedures Referred By Contac t Referred To Contact Gala Morales APRN.FELLING BUCKING SUPERVISOR [address] [place] [id number] Referral ID Status Reason Start Date Expiration Date V isits Requested Visits Authorized [id number] Pending Review 1 1 Specialty Diagnoses / Procedures Referred By Contac t Referred To Contact Diagnoses Class 3 severe obesity with body mass index (BMI) of 45.0 to 49.9 in adult, unspecified obesity type, unspecified whether serious comorbidity present (HCC) Procedures CONSULT [facility] OFFICE/OUTPATIENT [facility] 60-74 MINUTES Sherine Galvin, MATTHEW.MEGAN [address] [address] Referral ID Status Reason Start Date Expiration Date Visits Requested Visits Authorized [id number] Authorized PCP Requested Referral 07/22/2022 07/22/2023 1 1 Specialty Diagnoses / Procedures Referred By Contac t Referred To Contact Diagnoses Class 3 severe obesity with serious comorbidity and body mass index (BMI) of 45.0 to 49.9 in adult, unspecified obesity type (HCC) Procedures [facility] OFFICE/OUTPATIENT [facility] 60 MINUTES Sherine Galvin, GIORGIO [address] [facility] [address] Referral ID Status Reason Start Date Expiration Date Visits Requested Visits Authorized [id number] Authorized PCP Requested Referral 07/26/2023 07/25/2024 1 1 Specialty Diagnoses / Procedures Referred By Contac t Referred To Contact Orthopedics Diagnoses Pain Procedures CONSULT PANEL TO ORTHOPAEDICS OFFICE/OUTPATIENT NEW HIGH MDM 60 MINUTES Xin Cunha APRN.FELLING BUCKING SUPERVISOR [address] [place] [address] Referral ID Status Reason Start Date Expiration Date Visits Requested Visits Authorized [id number] Authorized PCP Requested Referral 03/27/2024 03/27/2025 1 1 Specialty Diagnoses / Procedures Referred By Contac t Referred To Contact XR IMAGING Diagnoses Pain Procedures XR HAND GENERAL 3V PA/LAT/OBL RIGHT RADEX HAND MINIMUM 3 VIEWS Xin Cunha APRN.FELLING BUCKING SUPERVISOR [address] [place] [address] [place] [address] Referral ID Status Reason Start Date Expiration Date V isits Requested Visits Authorized [id number] Closed Auto-Generate d Referral 03/27/2024 04/26/2025 1 1 Summary Purpose Family History Relationship Condition Age at Onset Recorded Date/T elias Unknown Family History?No pertinent history Unkno wn July 04, 2015 7:30pm Family History?No pertinent history Unkno wn September 04, 2018 4:46pm Advance Directives Advance Directive Response Recorded Date/ Time Do you have a Healthcare Power of Satin Finisher? No October 01, 2024 4:32pm Advance Directives No September 24 6 1:03pm Chief Complaint and Reason for Visit Chief Complaint Admit Date Abd pain October 01, 2024 3:33 pm Additional Source Comments Source Comments (unrecognize d section and content) In the event this informatio n is protected by the Federal Confidentiality of Alcohol and Drug Abuse Patient Records regulations: The Federal rules restrict any use of the information to criminally investigate or prosecute any alcohol or drug abuse patient.[facility] the event this information is protected by the Federal Confidentiality of Alcohol and Drug Abuse Patient Records regulations: The Federal rules restrict any use of the information to criminally investigate or prosecute any alcohol or drug abuse patient.[facility] CenterIn the event this information is protected by the Federal Confidentiality of Alcohol and Drug Abuse Patient Records regulations: The Federal rules restrict any use of the information to criminally investigate or prosecute any alcohol or drug abuse patient.[facility] CenterIn the event this information is protected by the Federal Confidentiality of Alcohol and Drug Abuse Patient Records regulations: The Federal rules restrict any use of the information to criminally investigate or prosecute any alcohol or drug abuse patient.[facility] CenterIn the event this information is protected by the Federal Confidentiality of Alcohol and Drug Abuse Patient Records regulations: The Federal rules restrict any use of the information to criminally investigate or prosecute any alcohol or drug abuse patient.[facility] CenterIn the event this information is protected by the Federal Confidentiality of Alcohol and Drug Abuse Patient Records regulations: The Federal rules restrict any use of the information to criminally investigate or prosecute any alcohol or drug abuse patient.[facility] CenterIn the event this information is protected by the Federal Confidentiality of Alcohol and Drug Abuse Patient Records regulations: The Federal rules restrict any use of the information to criminally investigate or prosecute any alcohol or drug abuse patient.[facility] CenterIn the event this information is protected by the Federal Confidentiality of Alcohol and Drug Abuse Patient Records regulations: The Federal rules restrict any use of the information to criminally investigate or prosecute any alcohol or drug abuse patient.[facility] CenterIn the event this information is protected by the Federal Confidentiality of Alcohol and Drug Abuse Patient Records regulations: The Federal rules restrict any use of the information to criminally investigate or prosecute any alcohol or drug abuse patient.[facility] CenterIn the event this information is protected by the Federal Confidentiality of Alcohol and Drug Abuse Patient Records regulations: The Federal rules restrict any use of the information to criminally investigate or prosecute any alcohol or drug abuse patient.[facility] CenterIn the event this information is protected by the Federal Confidentiality of Alcohol and Drug Abuse Patient Records regulations: The Federal rules restrict any use of the information to criminally investigate or prosecute any alcohol or drug abuse patient.[facility] CenterIn the event this information is protected by the Federal Confidentiality of Alcohol and Drug Abuse Patient Records regulations: The Federal rules restrict any use of the information to criminally investigate or prosecute any alcohol or drug abuse patient.[facility] CenterIn the event this information is protected by the Federal Confidentiality of Alcohol and Drug Abuse Patient Records regulations: The Federal rules restrict any use of the information to criminally investigate or prosecute any alcohol or drug abuse patient.[facility] CenterIn the event this information is protected by the Federal Confidentiality of Alcohol and Drug Abuse Patient Records regulations: The Federal rules restrict any use of the information to criminally investigate or prosecute any alcohol or drug abuse patient.[facility] CenterIn the event this information is protected by the Federal Confidentiality of Alcohol and Drug Abuse Patient Records regulations: The Federal rules restrict any use of the information to criminally investigate or prosecute any alcohol or drug abuse patient.[facility] CenterIn the event this information is protected by the Federal Confidentiality of Alcohol and Drug Abuse Patient Records regulations: The Federal rules restrict any use of the information to criminally investigate or prosecute any alcohol or drug abuse patient.[facility] CenterIn the event this information is protected by the Federal Confidentiality of Alcohol and Drug Abuse Patient Records regulations: The Federal rules restrict any use of the information to criminally investigate or prosecute any alcohol or drug abuse patient.[facility] CenterIn the event this information is protected by the Federal Confidentiality of Alcohol and Drug Abuse Patient Records regulations: The Federal rules restrict any use of the information to criminally investigate or prosecute any alcohol or drug abuse patient.[facility] CenterIn the event this information is protected by the Federal Confidentiality of Alcohol and Drug Abuse Patient Records regulations: The Federal rules restrict any use of the information to criminally investigate or prosecute any alcohol or drug abuse patient.[facility] CenterIn the event this information is protected by the Federal Confidentiality of Alcohol and Drug Abuse Patient Records regulations: The Federal rules restrict any use of the information to criminally investigate or prosecute any alcohol or drug abuse patient.[facility] CenterIn the event this information is protected by the Federal Confidentiality of Alcohol and Drug Abuse Patient Records regulations: The Federal rules restrict any use of the information to criminally investigate or prosecute any alcohol or drug abuse patient.[facility] CenterIn the event this information is protected by the Federal Confidentiality of Alcohol and Drug Abuse Patient Records regulations: The Federal rules restrict any use of the information to criminally investigate or prosecute any alcohol or drug abuse patient.[facility] CenterIn the event this information is protected by the Federal Confidentiality of Alcohol and Drug Abuse Patient Records regulations: The Federal rules restrict any use of the information to criminally investigate or prosecute any alcohol or drug abuse patient.[facility] CenterIn the event this information is protected by the Federal Confidentiality of Alcohol and Drug Abuse Patient Records regulations: The Federal rules restrict any use of the information to criminally investigate or prosecute any alcohol or drug abuse patient.[facility] CenterIn the event this information is protected by the Federal Confidentiality of Alcohol and Drug Abuse Patient Records regulations: The Federal rules restrict any use of the information to criminally investigate or prosecute any alcohol or drug abuse patient.[facility] CenterIn the event this information is protected by the Federal Confidentiality of Alcohol and Drug Abuse Patient Records regulations: The Federal rules restrict any use of the information to criminally investigate or prosecute any alcohol or drug abuse patient.[facility] Reason for Visit (unrecogniz ed section and content) Reason Onset Date Comments Depo Provera Injection 06/25/2021 Reason Comments Ear Infection ADELFO x2 days, chest c ongestion Reason Comments Abdominal Pain Right sided/Upper ab dominal pain. Underneath right breast/ribcage area. Reason Comments Results Reason Comments Yearly Exam Reason Comments Results Orders Labs Reason Comments Results Labs Orders Reason Comments Well Woman Reason Comments Results Labs Reason Comments Follow Up Reason Comments Colposcopy Specialty Diagnoses / Procedures Referred By Contac t Referred To Contact [facility] Diagnoses ASCUS with positive high risk HPV cervical Procedures COLPOSCOPY COLPOSCOPY CERVIX BX CERVIX & ENDOCRV CURRETAGE Sherine Galvin, GUEST RELATIONS EXECUTIVE.FELLING BUCKING SUPERVISOR [address] [place] [address] [facility] [address] [place] [address] Referral ID Status Reason Start Date Expiration Date V isits Requested Visits Authorized [id number] Closed Auto-Generate d Referral 08/10/2023 08/09/2024 1 1 Reason Onset Date Comments Refill Request 01/02/2024 Reason Comments Sore Throat With cough & swollen ADELFO lymph nodes in neck x 3 days Reason Comments Cough Cough and ST x 5 day s Reason Comments Sore Throat X 13 days Reason Comments Finger Injury right little finger pain x today, smashed between cart and bag of birdseed Reason Onset Date Comments Refill Request 07/03/2024 Reason Comments Well Woman Reason Comments Abnormal Pap Care Teams (unrecognized sec tion and content) Optical Lathe Operator Relationship Specialty Start Date End Date Burt Eugene MD [address] [place] [address] PCP - General Family Practice 12/23/15 Optical Lathe Operator Relationship Specialty Start Date End Date Burt Eugene MD [address] [place] [address] PCP - General Family Practice 12/23/15 Optical Lathe Operator Relationship Specialty Start Date End Date Burt Eugene MD [address] [place] [address] PCP - General Family Medicine 12/23/15 Optical Lathe Operator Relationship Specialty Start Date End Date Burt Eugene MD [address] [facility] [place] [address] PCP - General Family Medicine 12/23/15 Optical Lathe Operator Relationship Specialty Start Date End Date Burt Eugene MD [address] [place] [address] PCP - General Family Medicine 12/23/15 Optical Lathe Operator Relationship Specialty Start Date End Date Burt Eugene MD [address] [place] [address] PCP - General Family Medicine 12/23/15 Optical Lathe Operator Relationship Specialty Start Date End Date Burt Eugene MD [address] [place] [address] PCP - General Family Medicine 12/23/15 Optical Lathe Operator Relationship Specialty Start Date End Date Burt Eugene MD [address] [place] [address] PCP - General Family Medicine 12/23/15 Optical Lathe Operator Relationship Specialty Start Date End Date Burt Eugene MD [address] [place] [address] PCP - General Family Medicine 12/23/15 Optical Lathe Operator Relationship Specialty Start Date End Date Burt Eugene MD [address] [place] [address] PCP - General Family Medicine 12/23/15 Optical Lathe Operator Relationship Specialty Start Date End Date Burt Eugene MD [address] [place] [address] PCP - General Family Medicine 12/23/15 Optical Lathe Operator Relationship Specialty Start Date End Date Burt Eugene MD [address] [place] [address] PCP - General Family Medicine 12/23/15 Optical Lathe Operator Relationship Specialty Start Date End Date Burt Eugene MD [address] [place] [address] PCP - General Family Medicine 12/23/15 Optical Lathe Operator Relationship Specialty Start Date End Date Burt Eugene MD [address] [place] [address] PCP - General Family Medicine 12/23/15 Optical Lathe Operator Relationship Specialty Start Date End Date Burt Eugene MD [address] [place] [address] PCP - General Family Medicine 12/23/15 Meghann Redding APRN.FELLING BUCKING SUPERVISOR [address] [place] [address] Matrix Supervisor Family Medicine 02/27/24 Jennifer Guardado APRN.FELLING BUCKING SUPERVISOR [address] [place] [address] [facility] 02/27/24 Optical Lathe Operator Relationship Specialty Start Date End Date Burt Eugene MD [address] [place] [address] PCP - General Family Medicine 12/23/15 Meghann Redding APRN.FELLING BUCKING SUPERVISOR [address] [place] [address] Matrix Supervisor Family Medicine 02/27/24 Jennifer Guardado APRN.FELLING BUCKING SUPERVISOR [address] [place] [address] [facility] 02/27/24 Optical Lathe Operator Relationship Specialty Start Date End Date Burt Eugene MD [address] [place] [address] PCP - General Family Medicine 12/23/15 Meghann Redding APRN.FELLING BUCKING SUPERVISOR [address] [place] [address] Matrix Supervisor Family Medicine 02/27/24 Jennifer Guardado APRN.FELLING BUCKING SUPERVISOR [address] [place] [address] Matrix Supervisor Family [facility] 02/27/24 Optical Lathe Operator Relationship Specialty Start Date End Date Burt Eugene MD [address] [facility] [place] [address] PCP - General Family Medicine 12/23/15 Meghann Redding, GUEST RELATIONS EXECUTIVE.FELLING BUCKING SUPERVISOR [address] [place] [address] Matrix Supervisor Family Medicine 02/27/24 Jennifer Guardado GUEST RELATIONS EXECUTIVE.FELLING BUCKING SUPERVISOR [address] [place] [address] [facility] 02/27/24 Optical Lathe Operator Relationship Specialty Start Date End Date Burt Eugene MD [address] [place] [address] PCP - General Family Medicine 12/23/15 Meghann Redding, GUEST RELATIONS EXECUTIVE.FELLING BUCKING SUPERVISOR [address] [place] [address] Matrix Supervisor Family [facility] 02/27/24 Jennifer Guardado GUEST RELATIONS EXECUTIVE.FELLING BUCKING SUPERVISOR [address] [place] [address] [facility] 02/27/24 Optical Lathe Operator Relationship Specialty Start Date End Date Burt Eugene MD [address] [place] [address] PCP - General Family Medicine 12/23/15 Meghann Redding, GUEST RELATIONS EXECUTIVE.FELLING BUCKING SUPERVISOR [address] [place] [address] [facility] 02/27/24 Jennifer Guardado APRN.FELLING BUCKING SUPERVISOR [address] [place], [place] [address] [phone] [facility] 02/27/24 Optical Lathe Operator Relationship Specialty Start Date End Date Burt Eugene MD [address] [place] [address] PCP - General Family Medicine 12/23/15 Meghann Redding GUEST RELATIONS EXECUTIVE.FELLING BUCKING SUPERVISOR [address] [place] [address] [facility] 02/27/24 Jennifer Guardado GUEST RELATIONS EXECUTIVE.FELLING BUCKING SUPERVISOR [address] [place] [address] [facility] 02/27/24 Optical Lathe Operator Relationship Specialty Start Date End Date Burt Eugene MD [address] [place] [address] PCP - General Family Medicine 12/23/15 Meghann Redding, GUEST RELATIONS EXECUTIVE.FELLING BUCKING SUPERVISOR [address] [place] [address] [facility] 02/27/24 Jennifer Guardado GUEST RELATIONS EXECUTIVE.FELLING BUCKING SUPERVISOR [address] [place] [address] [facility] 02/27/24 Team Status: Active Member Role/Relationship Status Dates Dr. Burt Eugene MD Primary Care Provider Active Team Status: Inactive Member Role/Relationship Status Dates Dr. Burt Eugene MD Primary Care Provider Active Start: October 01, 2024 End: October 01, 2024 Dr. Octavio Schwiger , DO Referring Provider Active Start: October 01, 2024 End: October 01, 2024 Dr. Octavio May , DO Emergency Provider Active Start: October 01, 2024 End: October 01, 2024 INFORMATION SOURCE (unrecogn ized section and content) DATE CREATED AUTHOR 08/15/2024 [facility] Goals (unrecognized section and content) Goals may be documented in a n alternate section FOR RECORDS PERTAINING TO PATIENTS WHO ARE OR HAVE BEEN ENROLLED IN A CHEMICAL DEPENDENCY/SUBSTANCEABUSE PROGRAM, SOME INFORMATION MAY BE OMITTED. This clinical summary was aggregated from multiple sources. Caution should be exercised in using it in the provision of clinical care. This summary normalizes information from multiple sources, and as a consequence, information in this document may materially change the coding, format and clinical context of patient data. In addition, data may be omitted in some cases. CLINICAL DECISIONS SHOULD BE BASED ON THE PRIMARY CLINICAL RECORDS. [facility] [employer] [facility]. provides no warranty or guarantee of the accuracy or completeness of information in this document.
== END 2024-10-01 20:32 | disposition home or self-care (01) ==
PROVIDERS: Emergency Provider Emergency Medicine; PCP Family Medicine; Referring Provider Emergency Medicine; Visit Provider Emergency Medicine
DX: R10.31 Right lower quadrant pain (principal); F17.290 Nicotine dependence, other tobacco product, uncomplicated
CPT/HCPCS: 74177; 80053; 81001; 84703; 85025; 96361; 96374; 99283; Q9967; A4216; J2405

== ENCOUNTER 2025-02-01 10:21 | Day surgery (SDC) | payer MEDICAID, SELFPAY ==
--- NOTE | 2025-01-30 08:26 | PAT.ANE_ITS ---
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 When Was Last Pacemaker Check QUESTION #4 FULL TEXT: You/Your Family Experience fever (hyperthermia) with Anesthesia Last Oral Intake Last Oral intake: Last Oral Intake NPO since Meds taken in AM with sips of water? Meds patient instructed to take am of surgery PONV PONV - naval marine engineer: PONV - naval marine engineer Female Yes 01/30/25 08:12 HX of Motion Sickness No 01/30/25 08:12 HX of N/V After Surgery No 01/30/25 08:12 Non-Smoker No 01/30/25 08:12 Duration of Surgery greater No 01/30/25 08:12 than 60 minutes Number of Risk Factors 1 01/30/25 08:12 PONV Score Low Risk 01/30/25 08:12 Height & Weight Height & Weight: Anesthesia: Height & Weight Height 5 ft 5 in 10/01/24 15:33 Respiratory Assessment Respiratory Assessment - naval marine engineer: Respiratory Tract Infection Hx - naval marine engineer Hx Respiratory Tract Infection No 01/30/25 08:12 STOP Sleep Apnea STOP Sleep Apnea - naval marine engineer: STOP Sleep Apnea - naval marine engineer Hx Hypertension No 01/30/25 08:12 Hx Sleep Apnea No 01/30/25 08:12 CPAP BIPAP Do you snore loudly (louder Yes 01/30/25 08:12 than talking or can be heard Do you often feel tired/ No 01/30/25 08:12 fatigued/ sleepy during daytime? Has anyone observed you stop No 01/30/25 08:12 breathing during sleep? STOP Results Negative 01/30/25 08:12 QUESTION #5 FULL TEXT : Do you snore loudly (louder than talking or can be heard through closed doors)? Tobacco Use History Tobacco Use History - naval marine engineer: Tobacco Use History - naval marine engineer Tobacco Use Smoking Status Current every day smoker 01/30/25 08:12 Hx Tobacco Use Yes 01/30/25 08:12 Years Smoking Packs Smoked per Day Smoking Cessation Date was within the last 15 years Hx Smoking Cessation Date Hx Smoking Cessation Counseling Hematologic Medial History Hematologic Hx - naval marine engineer: Hematologic Medical Hx - security sme Hx of Blood Transfusion Yes 01/30/25 08:12 Hx of Transfusion in last 3 No 01/30/25 08:12 Months Date of Last Transfusion (if within last 3 months) Ever experience any problems No 01/30/25 08:12 with transfusion(s)? Specify any problems Hx of Preganancy in last 3 Yes 01/30/25 08:12 Months Nurse Filling Out Transfusion DSCHRIBER 01/30/25 08:12 & Questions: Date: 01/30/25 01/30/25 08:12 Time: 08:14 01/30/25 08:12 Patient unable to answer at this time (ie. confused, unrespo /Reproduction History /Reproductive History - naval marine engineer: /Reproductive Hx- naval marine engineer Hx Now Yes 01/30/25 08:12 Gestational Age (in weeks): EDC: Hx Hx Para Hx Section SAB No 01/30/25 08:12 Does the father of the baby or No 01/30/25 08:12 his family experience fever w Father of the baby Malignant Hypertension history comment [facility] Medical History (Updated 01/30/25 @ 08:22 by Brenda Ruiz) Wears glasses Depression Anxiety Marijuana use Alcohol use Restless legs Back pain Migraine headache Hx of vertigo Seizures Heartburn Smoker Asthma Shortness of breath on exertion History of Holter monitoring Palpitations Hypothyroid Home Medications Medication Instructions Recorded Last Taken Type levothyroxine 112 mcg tablet 112 mcg PO DAILY 10/01/24 Unknown History Allergy/AdvReac Type Severity Reaction Status Date / Time erythromycin base Allergy Mild Hives Verified 01/30/25 08:11 (Erythromycin Base) Sulfa (Sulfonamide Allergy Hives Verified 01/30/25 08:11 Antibiotics) Surgical History (Updated 01/30/25 @ 08:22 by Brenda Ruiz) Hx of biopsy Hx of section Hx of right breast biopsy Hx of tonsillectomy Social History (Updated 10/01/24 @ 16:[address] Octavio May, DO) Smoking Status: Current every day smoker tobacco type: e-cigarettes Electronic Cigarette Use: with nicotine Audit: Pertinent Findings Pertinent Findings Additional pertinent findings: Holter monitor (2019) - no arrhythmias, only sinus tachycardia with palpitations Recommendation Anesthesia Recommendation Anesthesia recommendation: OPTIMIZED for anesthesia
--- NOTE | 2025-01-30 14:39 | HP.PCM_ITS ---
History and Physical Date of Admission: 02/01/25 HPI: The patient is a 29 year old female presenting for pre-operative visit. She is scheduled for Suction D&C, for missed ab 10 weeks fro LMP, 6 week size on 02/01/25. Procedure discussed along with risks, benefits and complications. Other alternatives discussed for management. Consent form signed? Yes. PAST MEDICAL HISTORY PAST MEDICAL HISTORYDiagnosisDate•Abnormal Pap smear of dymart0308/15/2014 ASCUS •Abnormal ultrasound of rfxecm1805/01/2012•Byyxhhbjdz53/02/2011•Anxiety zlyiiygt44/21/2012•Asthma (HCC)07/03/2012•Bipolar disorder (HCC)02/19/2011•Breast disorder fibrocystic breasts•Bsttznfmsd20/02/2011•Family history of [place]'s zfolszk8102/19/2011•Tex's qdrkdjp6163•HPV test yiowjmbg91/28/2015•Overweight(278.02)02/19/2011•Djinlwskxojq74/02/2011•Seizure ([facility]) •Seizures ([facility])02/19/2011•Shortness of piftpg7810/25/2012•Pelhxut7102/19/2011 PAST SURGICAL HISTORY PAST SURGICAL HISTORYProcedureLateralityDate• DELIVERY ONLY 06/02/2015 Had extensive surgery following delivery on the incision site. •COLPOSCOPY 2024 and 2023•PAST SURGICAL HISTORY OF tongue clip•PAST SURGICAL HISTORY O F age 16 yr right breast biopsy- benign•TONSILLECTOMY & ADENOIDECTOMY <AGE 10 CURRENT MEDICATIONS Current Outpatient MedicationsMedicationSigDispenseRefill• vit 62/FA/om3/dha/epa ( GUMMY ORAL)Take 2 pieces by mouth once daily. •levothyroxine (LEVOXYL) 112 mcg tabletTake 1 tablet by mouth once daily. Take on empty stomach. For thyroid.30 tablet5 No current facility- administered medications for this visit. ALLERGIES: Lamotrigine, Dust Mites, Erythromycin, Red Dye, Seasonal Allergies, and Sulfa (Sulfonamide Antibiotics) PERSONAL HISTORY: [SOCIAL HISTORY] [SOCIAL HISTORY] Social History Tobacco Use • Smoking status: Former Current packs/day: 0.50 Types: Cigarettes • Smokeless tobacco: Never • Tobacco comments: Patient vapes nicotine no longer smoking cigarettes Vaping Use • Vaping status: Former • Substances: Nicotine • Devices: Disposable Substance Use Topics • Alcohol use: No • Drug use: No FAMILY HISTORY: FAMILY HISTORY FAMILY HISTORY ProblemRelationAge of Onset•HeartMother •other (pancreatitis)Father •HypothyroidismBrother •HypertensionBrother •HeartMaternal Grandmother •CancerMaternal Grandmother lung cancer•HeartMaternal Grandfather Sleep Apnea•DiabetesPaternal Grandmother •No Known ProblemsDaughter REVIEW OF SYMPTOMS: GENERAL: denies fevers or chills ENDOCRINOLOGY: has not been on steroids Cardiology : denies palpitations or chest pain Respiratory: denies SOB or cough Hematology: denies history of prolonged bleeding or easy bruising or VTE Allergy: Denies history of personal or family history of allergy to anesthesia PHYSICAL EXAMINATION: VITALS: Blood pressure 114/76, weight 124.3 kg (274 lb), last menstrual period 11/15/2024. GENERAL: The patient is well nourished, well hydrated in no acute distress. , The patient is oriented to time, place, and person. NECK: Supple. No lynphadenopathy, normal thyroid, no thyromegaly. LUNGS: Clear to auscultation bilaterally. no wheezes, rhonchi or rales HEART: Regular rate and rhythm, Normal heart sounds, and No murmurs or gallops IMPRESSION: missed ab 6 week size PLAN: The risks/benefits/alternatives and personal involved for the planned suction D&C were reviewed with the patient. Her questions were answered to her satisfaction and she desires to proceed. Consent was signed. I reviewed with her postop instructions and expectations. Does not desire to have POCs released to her and does not desire genetic testing. I have reviewed and updated past medical and surgical history, medications and allergies Assessment & Plan Assessment/Plan (1) Missed ab: (2) 6 weeks gestation of :
[2025-02-01] VITALS (8 sets, daily range): BP systolic 103–121; BP diastolic 59–77; PULSE 73–92; RESP 16; TEMP 36.1–36.9; O2SAT 96–100; BMI 45.8
[2025-02-01] MEDS: Lactated Ringers 1,000 ML 15 ML IV (11:00)
[2025-02-01] MEDS: Ketorolac 30 MG/ML Syringe IV (11:01)
--- NOTE | 2025-02-01 11:15 | PCM.PRE.AN2 ---
ASA Classification* ASA Classification ASA Classification: 3 Assessment & Plan Anesthesia* Anesthesia Assessment Anesthesia Assessment: Discussed sedation and/or anesthesia options, risks, benefits, and alternatives with patient/parents/legal guardian/POA. Questions invited. The patient/parents/legal guardian/POA seems to understand and agrees to proceed with anesthesia plan. Reviewed the physical assessment, medical history, allergy history and patient home medications list prior to surgery/procedure/anesthetic and documented any changes. Performed airway and anesthesia risk assessments. Anesthesia Type Anesthesia Type: MAC History Source History Obtained from:: Patient and Chart Anesthesia Focused Assessment* Temperature: 98.4 F Pulse Rate: 73 Blood Pressure: 111/77 Respiratory Rate: 16 Pulse Ox: 100 Oxygen Delivery Method: Room Air Airway Assessment Mouth opens: >3 cm Mallampati Score: I Teeth Condition: Intact Neck Range of motion (ROM): Full ROM Labs Anesthesia Preop lab: CBC WBC, (4.4-11.0) 13.0 K/mm3 H 10/01/24, 16:12 RBC, (4.2-5.4) 4.50 M/mm3 10/01/24, 16:12 Hgb, (12.0-15.0) 13.4 g/dL 10/01/24, 16:12 Hct, (37-47) 39.5 % 10/01/24, 16:12 Plt Count, (150-450) 291 K/mm3 10/01/24, 16:12 CHEMISTRY Potassium, (3.3-5.1) 4.1 mmol/L 10/01/24, 16:12 Sodium, (133-145) 137 mmol/L 10/01/24, 16:12 BUN, (4-19) 11 mg/dL 10/01/24, 16:12 Creatinine, (0.70-1.20) 0.73 mg/dL 10/01/24, 16:12 Glucose, (70-99) 75 mg/dL 10/01/24, 16:12 POC Glucose, (70-110) 86 mg/dL 02/01/12, 15:33 TSH, (0.358-3.74) 1.69 uIU/mL 02/11/14, 10:36 COAG Urine Test Negative Negative 09/30/15, 07:20 Pre-Assessment Diagnosis/Proposed Procedure Planned Operative Procedure(s): D&C SUCTION Anesthesia History Anesthesia History - tool straightener: Anesthesia History - tool straightener Hx Hospitalization No 01/30/25 08:12 Any Problems With Anesthesia No 01/30/25 08:12 Cholinesterase deficiency No 01/30/25 08:12 You/Your Family Experience No 01/30/25 08:12 fever (hyperthermia) with Relationship Recent Exposure to Contagious Yes: CURRENTLY HAS A COLD 09/30/15 14:48 Disease Does patient have nerve No 01/30/25 08:12 stimulator Patient instructed to have device shut off --Does patient have Pacemaker No 02/01/25 10:50 or ICD? When Was Last Pacemaker Check QUESTION #4 FULL TEXT: You/Your Family Experience fever (hyperthermia) with Anesthesia Last Oral Intake Last Oral intake: Last Oral Intake NPO since 06:15 02/01/25 10:50 Meds taken in AM with sips of Yes 02/01/25 10:50 water? Meds patient instructed to see med list 02/01/25 10:50 take am of surgery PONV PONV - tool straightener: PONV - tool straightener Female Yes 01/30/25 08:12 HX of Motion Sickness No 01/30/25 08:12 HX of N/V After Surgery No 01/30/25 08:12 Non-Smoker No 01/30/25 08:12 Duration of Surgery greater No 01/30/25 08:12 than 60 minutes Number of Risk Factors 1 01/30/25 08:12 PONV Score Low Risk 01/30/25 08:12 Height & Weight Height & Weight: Anesthesia: Height & Weight Height 5 ft 5 in 02/01/25 10:50 Weight: 125 kg 02/01/25 10:50 Body Mass Index (BMI) 45.8 02/01/25 10:50 Respiratory Assessment Respiratory Assessment - tool straightener: Respiratory Tract Infection Hx - tool straightener Hx Respiratory Tract Infection No 01/30/25 08:12 STOP Sleep Apnea STOP Sleep Apnea - tool straightener: STOP Sleep Apnea - tool straightener Hx Hypertension No 01/30/25 08:12 Hx Sleep Apnea No 01/30/25 08:12 CPAP BIPAP Do you snore loudly (louder Yes 01/30/25 08:12 than talking or can be heard Do you often feel tired/ No 01/30/25 08:12 fatigued/ sleepy during daytime? Has anyone observed you stop No 01/30/25 08:12 breathing during sleep? STOP Results Negative 01/30/25 08:12 QUESTION #5 FULL TEXT : Do you snore loudly (louder than talking or can be heard through closed doors)? Tobacco Use History Tobacco Use History - tool straightener: Tobacco Use History - tool straightener Tobacco Use Smoking Status Current every day smoker 01/30/25 08:12 Hx Tobacco Use Yes 01/30/25 08:12 Years Smoking Packs Smoked per Day Smoking Cessation Date was within the last 15 years Hx Smoking Cessation Date Hx Smoking Cessation Counseling Hematologic Medial History Hematologic Hx - tool straightener: Hematologic Medical Hx - occupational health nurse manager Hx of Blood Transfusion Yes 01/30/25 08:12 Hx of Transfusion in last 3 No 01/30/25 08:12 Months Date of Last Transfusion (if within last 3 months) Ever experience any problems No 01/30/25 08:12 with transfusion(s)? Specify any problems Hx of Preganancy in last 3 Yes 01/30/25 08:12 Months Nurse Filling Out Transfusion DSCHRIBER 01/30/25 08:12 & Questions: Date: 01/30/25 01/30/25 08:12 Time: 08:14 01/30/25 08:12 Patient unable to answer at this time (ie. confused, unrespo /Reproduction History /Reproductive History - tool straightener: /Reproductive Hx- tool straightener Hx Now Yes 01/30/25 08:12 Gestational Age (in weeks): EDC: Hx Hx Para Hx Section SAB No 01/30/25 08:12 Does the father of the baby or No 01/30/25 08:12 his family experience fever w Father of the baby Malignant Hypertension history comment Active Medications Active Medications: Current Medications Generic Name Dose Route Start Last Admin Trade Name Freq PRN Reason Stop Dose Admin Acetaminophen 1,000 mg 02/01/25 13:00 02/01/25 11:01 Acetaminophen 500 Mg Tablet PO 02/01/25 13:01 1,000 mg PREOP ONE Administration Doxycycline Monohydrate 200 mg 02/01/25 13:00 02/01/25 11:00 Doxycycline 100 Mg Capsule PO 02/01/25 13:01 200 mg PREOP ONE Administration Lactated Ringer's 1,000 mls @ 15 mls/hr 02/01/25 10:30 02/01/25 11:00 IV 15 mls/hr .Q48H PAKO Administration Ketorolac Tromethamine 30 mg 02/01/25 13:00 02/01/25 11:01 Ketorolac 30 Mg/Ml Syringe IV 02/01/25 13:01 30 mg PREOP ONE Administration PFSH Medical History Wears glasses Depression Anxiety Marijuana use Alcohol use Restless legs Back pain Migraine headache Hx of vertigo Seizures Heartburn Smoker Asthma Shortness of breath on exertion History of Holter monitoring Palpitations Hypothyroid Home Medications Medication Instructions Recorded Last Taken Type levothyroxine 112 mcg tablet 112 mcg PO DAILY 10/01/24 02/01/25 06:15 History Allergy/AdvReac Type Severity Reaction Status Date / Time erythromycin base Allergy Mild Hives Verified 02/01/25 10:48 (Erythromycin Base) Sulfa (Sulfonamide Allergy Hives Verified 02/01/25 10:48 Antibiotics) Surgical History Hx of biopsy Hx of section Hx of right breast biopsy Hx of tonsillectomy Social History Smoking Status: Current every day smoker tobacco type: e-cigarettes Electronic Cigarette Use: with nicotine Review of Systems (Anesthesia) ROS Narrative System reviewed and no additional complaints, except as documented.
--- NOTE | 2025-02-01 12:00 | POC_PTH ---
PATIENT: EMMA URIAS [place] [facility] [facility] [id number] AGE/SX: 29/ ROOM: RE02/01/[address]: Dr. Patricia Anthony MD : 1995 BED: DIS: 02/01/2025 SPEC #: [id number] RECD: 02/01/25 14:04 STATUS: ELLIOTT REBruce #: [id number] SAIRA: 02/01/25 12:[address]: Patricia Anthony DEPT: SURGICAL PATHOLOGY RECD BY: Jarek Ayoub ENTERED: 02/01/25 14:19 SP TYPE: PROD CONC OTHR DR: Dr. Burt De León MD Tissues: A - Product of conception, NOS Procedures: Surgery Specimen Level IV HEADER OPERATION: Dilation and curettage, suction PRE-OP DIAGNOSIS: Missed , 6 weeks gestation of TISSUE SUBMITTED: A- Products of conception MICROSCOPIC DIAGNOSIS A. Uterine contents: * Inflamed and degenerating decidua with chorionic villi consistent with intrauterine products of conception MICROSCOPIC DESCRIPTION Slides are reviewed. GROSS DESCRIPTION A. Received in formalin labeled with the patient's name and date of . Designated as "products of conception" is a 9.5 x 7.6 x 1.4 cm aggregate of alvarez-pink soft and papilliferous tissue fragments. parts are not present. Drive Worker sections are submitted in 3 cassettes. [place] 02/01/2025 CPT:55105
[2025-02-01] MEDS: Midazolam 2 MG/2 ML Syringe IV (12:20)
[2025-02-01] MEDS: Lidocaine 1% (5 ml sdv) 5 ML Vial 8 ML IV (12:25)
[2025-02-01] MEDS: dexMEDEtomidine 200 MCG/2 ML ML 24 MCG IV (12:32)
[2025-02-01] MEDS: Lidocaine 1% /Epi 1:100 (20ml) 20 ML Vial (12:35)
--- NOTE | 2025-02-01 12:50 | PCM.OPRPT ---
Operative Report (Standard) Operative Information Date of Procedure: 02/01/25 Pre-Operative Diagnosis: missed abortyion Post-Operative Diagnosis: same Surgery/Procedure Performed: Suction Dilation and Curettage calciner operator: Yes Business Planning Analyst: Jose Cota Tasks completed by oncology physician assistant: Retracting Additional podiatric assistant?: No Type of Anesthesia: MAC/Supplemental/Local RN Documented Start/Stop Times: Operation Date: 02/01/25 12:00 Case Time Into Pre-Op 02/01/25 10:27 Out of Pre-Op 02/01/25 12:16 Anesthesia Start 02/01/25 12:20 Into Room 02/01/25 12:20 Procedure Start 02/01/25 12:34 Procedure End 02/01/25 12:46 Procedure Start Time: :34 Procedure Stop Time: 12:46 Select all DRAINS/GRAFTS/IMPLANTS that apply: None Estimated Blood Loss: 20 Fluids Replaced: 700 cc LR Specimen collected: Yes Description of specimen(s) removed: products of conception Description of surgery: The patient was taken to the operating room where she was prepped and draped in a dorsolithotomy position. A bimanual examination was done and confirmed the uterus to be 7 weeks size and anteverted. A weighted speculum was placed in the vagina and the anterior lip of the cervix was grasped with a single-tooth tenaculum. 15 cc of 1% lidocaine with dilute epinephrine solution was used as a paracervical block. The cervix was dilated serially. A 7 mm suction curette was placed to the uterine fundus and the suction was created. Several passes were made to remove clots and products of conception. When minimal tissue was returning a gentle sharp curettage was then done of the uterine cavity. The uterine cry was appreciated and another gentle pass was made with the suction curette. At this point there is no active bleeding from the uterus and minimal blood and no further products of conception were removed. The instruments removed from the cervix and the cervix was observed and no active bleeding was identified. The tenaculum was removed off the cervix and hemostasis of the tenaculum site was assured. Made of the instruments removed from the vagina and the vaginal sweep was completed by me. Sponge and needle counts were correct. The patient was taken to the recovery room in stable condition. Findings: 7 week size uterus, normal cervix and vagina. Surgical Findings: normal cervix and vagina Complications Complications: No Admit VTE Documentation VTE Present on Admission: No VTE Mechan Device Prophylaxis: SCD's VTE Pharm Prophylaxis ordered?: No
--- NOTE | 2025-02-01 12:52 | PCM.DC ---
Discharge Instructions DC O2, CPAP, BIPAP needs Home O2 Discharge instructions: No Dressing / Incision May resume sexual activity in: 2 weeks Lifting Restrictions: none Dressing / Incision Call your doctor if your incision/area has: Sudden Increased Bleeding and Foul Smelling Discharge Call your doctor if you observe: Fever of 101 or Higher and Using more than 1 pad per hour (for 2 hrs in a row) Follow Up Care Please Follow Up With: Patricia Anthony MD When: 2-4 weeks or as needed. Call [phone] or send a [employer] message to make an appointment or with any concerns. Test Results: Test results from this visit will be discussed in further detail at your follow-up appointment, if applicable. Discharge Plan Admission Primary Reason for Your Visit: Suction dilation and curettage for miscarriage Attending Provider: Patricia Anthony Primary Care Provider: Burt De León Instructions Print Language: Slovenian Discharge Orders/Prescriptions Prescriptions: No Action levothyroxine 112 mcg tablet 112 mcg PO DAILY Referrals / Follow Up: Burt De León MD [Primary Care Provider, Medical] Disposition Disposition (needs filled in before D/C Order can be placed): Home, Self Care
--- NOTE | 2025-02-01 12:59 | PCM.POST.ANE ---
Anesthesia: Postop Eval I Current Vital Signs Temperature: 98 F Pulse Rate: 88 Blood Pressure: 103/59 Respiratory Rate: 16 Pulse Ox: 96 Assessment Airway patent: Yes Spontaneous unlabored respirations: Yes nausea: No Vomiting: No Anesthesia Complication: No Fluid Hydration Crystalloid volume administer (ml): 700 Total IV fluid infused: 700 Progress Note Anesthesia document: Postop Eval 1 completed: Yes
--- NOTE | 2025-02-01 13:28 | POSTOPAN2_ITS ---
Anesthesia Postop Eval I Sum Postop Eval Completion status Anesthesia document: Postop Eval 1 completed: Yes Anesthesia Postop Eval I Summary Anesthesia Postop Eval I Summary: Anesthesia Postop Eval I: Assessment Summary Airway patent Yes 02/01/25 12:59 [email or web address] Spontaneous unlabored Yes 02/01/25 12:59 [email or web address] respirations Mental status nausea No 02/01/25 12:59 [email or web address] Vomiting No 02/01/25 12:59 [email or web address] Anesthesia Postop Eval I: Fluid Summary Crystalloid volume administer 700 02/01/25 12:59 [email or web address] (ml) Colloids volume administered ( ml) Blood Product volume administered (ml) Total IV fluid infused 700 02/01/25 12:59 [email or web address] Anesthesia Postop Eval I: Summary Notes Anesthesia Complication No 02/01/25 12:59 [email or web address] Anesthesia Complication Comment: Post-operative progress note Anesthesia: Postop Eval II Evaluation Mental status: Awake and Calm Pain Level: 0 nausea: No Vomiting: No Complications Anesthesia Complication: No
--- NOTE | 2025-02-01 13:28 | PCM.POSTANE2 ---
Anesthesia Postop Eval I Sum Postop Eval Completion status Anesthesia document: Postop Eval 1 completed: Yes Anesthesia Postop Eval I Summary Anesthesia Postop Eval I Summary: Anesthesia Postop Eval I: Assessment Summary Airway patent Yes 02/01/25 12:59 WIRE MESH FILTER [email or web address] Spontaneous unlabored Yes 02/01/25 12:59 WIRE MESH FILTER [email or web address] respirations Mental status nausea No 02/01/25 12:59 WIRE MESH FILTER [email or web address] Vomiting No 02/01/25 12:59 WIRE MESH FILTER [email or web address] Anesthesia Postop Eval I: Fluid Summary Crystalloid volume administer 700 02/01/25 12:59 WIRE MESH FILTER [email or web address] (ml) Colloids volume administered ( ml) Blood Product volume administered (ml) Total IV fluid infused 700 02/01/25 12:59 WIRE MESH FILTER [email or web address] Anesthesia Postop Eval I: Summary Notes Anesthesia Complication No 02/01/25 12:59 WIRE MESH FILTER [email or web address] Anesthesia Complication Comment: Post-operative progress note Anesthesia: Postop Eval II Evaluation Mental status: Awake and Calm Pain Level: 0 nausea: No Vomiting: No Complications Anesthesia Complication: No
== END 2025-02-01 14:16 | disposition home or self-care (01) ==
LOC: SDC 10:23 → AC 10:24
PROVIDERS: PCP Family Medicine; Referring Provider Obstetrics & Gynecology; Visit Provider Obstetrics & Gynecology
DX: O03.4 Incomplete spontaneous abortion without complication (principal)
CPT/HCPCS: 59820; 01965; 88305